=== PATIENT | female | born 1975 | race Caucasian/White ===

== ENCOUNTER 2019-10-22 13:45 | Outpatient (RCR) | payer OTHER, MEDICAID, SELFPAY ==
[2019-06-26 15:20] VITALS: BP 160/85
--- NOTE | 2019-06-26 18:43 | PT.OIE ---
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 (06/26/19) Other malaise (06/26/19) Past Medical History (Last Updated 05/30/19 @ 12:43 by Catalina Butler DO) Rheumatoid vasculitis with rheumatoid arthritis (Acute) Type 2 diabetes mellitus (Acute) Visit Care Team Role Provider Type Other Providers Specialty: Address: Phone: Fax: Email: Daisy Weinberg DO Attending Provider Non-Staff Specialty: Medical Address: [address] [place] [address], [id number] Email: Physical Therapy Initial Evaluation PT-OP-A Visit Information Start: 06/26/19 15:28 Freq: Status: Active Protocol: Document 06/26/19 15:20 HH (Rec: 06/26/19 16:48 HH [id number]) Out-Patient Physical Therapy Visit Information Visit Information Visit Type Initial Evaluation Visit Note IE led by TOMMY Rivas Visit Start Time 15:20 Visit Stop Time 16:00 Total Visit Minutes 40 Visit Number 1 Number of VISUAL [employer] .[employer] 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 Pt was diagnosed with RA and rheumatoid vasculitis in 1993 and notes that she believes this is when she started to become deconditioned. Pt's LBP and L LE radiculopathy which was worse with minimal exertion started approximately 3 years ago. She had a partial diskectomy f/b a full diskectomy approximately 1.5 year ago with minimal relief from surgeries. Pt reports the LBP and L LE pain was so severe she stayed in nursing homes multiple times and has walked with 4WW for last 3 years. Pt notes that approximately 1 year ago her LE pain was so intense she stopped walking. Pt moved in with sister in bottom floor of the house for more socal support. Approximately 6 months ago started using CBD oil with profound relief of sx , and pt has been able to stop taking gabapentin and reduce 4WW use to only in the mornings or with long distances. As pt's LBP has improved, she is interested in improving physical fitness and reports deconditioning and poor balance limits her the most. She also reports a 70 lb weight gain ~1 year ago d/t a course of high dose steroids, and has been able to lose about 35 lbs but still feels like her weight is limiting her mobility. Pt reports biggest limitations are with long distance walking or climbing more than one flight of stairs. Prior Treatments and Tests Partial f/b full diskectomy L5 -S1 in 2018. Had aquatic therapy in [place], [place] a few years ago which she felt was beneficial. Pt also currently receiving OMT for RA . Treatment Goals Patient/Caregiver Goals Lose weight, improve fitness, walk more, stop using 4WW Prior Functional Status Baseline Function- ADL's Independent Baseline Function- Mobility Independent Baseline Function- Gait Did not use AD prior to 3 years ago. Current Functional Impairments (Reported) Functional Limitations- ADL's Independent with ADLs. Functional Limitations- Mobility/Gait Independent, uses walker in mornings or for extended distances. Personal Factors Other Personal Factors That May Effect Pt is 290lbs (had 70 lb weight Therapy/Recovery gain 1 year ago and has lost about 35 lb since then). 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 PT-OP-C Subjective Start: 06/26/19 15:28 Freq: Status: Active Protocol: Document 06/26/19 15:20 (Rec: 06/26/19 16:48 [id number]) OP-PT Subjective Patient Comments Patient Comments I don't like that I get fatigued and out of breath so quickly. I want to lose weight and get moving more. I liked aquatic therapy in the past but am open to anything that can help. OP-PT Pain Assessment Location Neck Intensity 3 Scale Used Numeric (1 - 10) Description Aching,Chronic,Dull Frequency Constant Pain Aggravating Factors Activity,Exercise,Walking, Stair Climbing Pain Alleviating Factors Inactivity B hands Intensity 4 Scale Used Numeric (1 - 10) Description Aching,Tingling Frequency Frequent lumbar back pain Pain Location Details LBP and pelvic pain Intensity 4 Scale Used Numeric (1 - 10) Description Aching,Dull,With Movement Frequency Constant PT-OP-D Balance Start: 06/26/19 15:28 Freq: Status: Active Protocol: Document 06/26/19 15:20 HH (Rec: 06/26/19 16:48 [id number]) Balance Tests Single Limb Standing Single Limb- Right 3s Single Limb- Left 4s PT-OP-E Functional Tests Start: 06/26/19 15:28 Freq: Status: Active Protocol: Document 06/26/19 15:20 HH (Rec: 06/26/19 18:40 [id number]) Functional Tests 6 Minute Walk Test Distance 742 Device Used 4WW Comments Pt took 1 min break from 3-4th minute PT-OP-G Mobility & Gait Start: 06/26/19 15:28 Freq: Status: Active Protocol: Document 06/26/19 15:20 HH (Rec: 06/26/19 16:48 [id number]) OP Mobility Evaluation Transfers Sit to Stand I but slow speed and uses UE support for pushoff. Poor descent control with stand to sit. PT-OP-H Neuro Start: 06/26/19 15:28 Freq: Status: Active Protocol: Document 06/26/19 15:20 HH (Rec: 06/26/19 16:48 [id number]) Sensation Evaluation Location Details Right Lower Extremity Light Touch Impaired Left Lower Extremity Light Touch Impaired Upper Extremity Light Touch Intact/Normal Left Little Finger Light Touch Absent Comments Summary Comments UE sensation to light touch intact except L pinky, pt reports long-term hx of neuropathic damage. LE sensation L impaired L4-S1, R impaired L5. Deep Tendon Reflex & Clonus Assessment Deep Tendon Reflex Bilateral Achilles Deep Tendon Reflex 1+ Diminished Bilateral Patellar Deep Tendon Reflex 2+ Normal Bilateral Brachioradialis Deep Tendon Reflex 2+ Normal Bilateral Tricep Deep Tendon Reflex 2+ Normal Bilateral Bicep Deep Tendon Reflex 2+ Normal Ankle Clonus Bilateral Clonus Assessment Absent Vital Signs Blood Pressure Sitting Blood Pressure (90/60-120/80 mmHg) 160/85 H Blood Pressure Source Manual Cuff Comments Vital Signs Comments After 6MWT = 182/89 H Pt's baseline = 130s/80s PT-OP-J Posture/Palpation/Skin Start: 06/26/19 15:28 Freq: Status: Active Protocol: Document 06/26/19 15:20 HH (Rec: 06/26/19 16:48 [id number]) Posture Evaluation Position Standing Evaluation View Lateral Head/C-Spine Posture Forward Head T-Spine Posture Increased Kyphosis L-Spine Posture Increased Lordosis Shoulder Posture (L) Rounded,(R) Rounded Weight Distribution Weight Shifted Right Hip Posture (L) Externally Rotated,(R) Externally Rotated Knee Posture (L) Genu Valgus,(R) Genu Valgus,(L) Genu Recurvatum,(R) Genu Recurvatum Ankle/Foot Posture (L) Pronated,(R) Pronated PT-OP-K Range of Motion Start: 06/26/19 15:28 Freq: Status: Active Protocol: Document 06/26/19 15:20 HH (Rec: 06/26/19 16:48 [id number]) Cervical Spine Range of Motion Cervical Spine Active Testing Position Sitting Comments WNL Lumbar Spine Range of Motion Lumbar Spine Active Testing Position Standing Comments Flexion fingertips to midshin, extension full range but hinging L/S Hip Goniometric Range of Motion Hip ROM Limitations Comments Excess ER, IR limited. PT-OP-L Special Tests Start: 06/26/19 15:28 Freq: Status: Active Protocol: Document 06/26/19 15:20 HH (Rec: 06/26/19 16:48 [id number]) Special Tests Other Special Tests Special Tests Babinski -ve B 6 MWT: 742 ft, 1 break (1 min long), used 4WW PT-OP-M Strength Start: 06/26/19 15:28 Freq: Status: Active Protocol: Document 06/26/19 15:20 HH (Rec: 06/26/19 16:48 [id number]) Shoulder Strength Shoulder Manual Muscle Testing bilateral Abduction (C5) 4 Good Elbow/Forearm Strength Elbow and Forearm Manual Muscle Testing bilateral Flexion (C6) 4+ Good+ Extension (C7) 4+ Good+ Wrist Strength Wrist Manual Muscle Testing bilateral Flexion (C7) 4+ Good+ Extension (C6) 4+ Good+ Hip Strength Hip Manual Muscle Testing bilateral Flexion (L2) 4- Good- Knee Strength Knee Manual Muscle Testing bilateral Flexion (S2) 4 Good Extension (L3) 4 Good Ankle/Foot Strength Ankle and Foot Manual Muscle Testing bilateral Dorsiflexion (L4) 4 Good Plantarflexion (S1) 4 Good PT-OP-T Assessment and Plan Start: 06/26/19 15:28 Freq: Status: Active Protocol: Document 06/26/19 15:20 HH (Rec: 06/26/19 16:48 [id number]) Physical Therapy Assessment Rehab Potential Rehabilitation Potential Good Evaluation Complexity Number of Personal Factors/Comorbidities 3 or More Number of Body Systems Impaired 4 or More Clinical Presentation at Evaluation Stable Impairments Impairments Activity Tolerance,Balance, Functional Activities, Functional Mobility,Gait,Pain, Posture,ROM,Sensation,Strength Other Impairments Gross mobility deficits and deconditioning Goals Balance Impairment Pt unable to balance single leg >5 sec Short Term Goal (STG) Pt will single leg stand >10 sec B to improve safety with activity STG Duration 6 weeks Popped Corn Oven Attendant Goal (LTG) Pt will single leg stand >20 sec B to improve safety with activity LTG Duration 12 weeks Activity level Impairment Pt does not participate in regular physical activity Short Term Goal (STG) Pt will complete 20 min of physical activity daily to improve physical fitness STG Duration 6 weeks Usp Goal (LTG) Pt will complete 30 min of physical activity dailty to improve physical fitness LTG Duration 12 weeks 6MWT Impairment Pt ambulated 742 ft with 1 min rest break Short Term Goal (STG) Pt will ambulate >1000 ft with <30 sec rest break during 6MWT to improve activity tolerance STG Duration 6 weeks Usp Goal (LTG) Pt will ambulate >1500 ft with <30 sec rest break during 6MWT to improve activity tolerance or 1000 ft without AD LTG Duration 12 weeks HEP Impairment Pt does not have HEP Popped Corn Oven Attendant Goal (LTG) Pt will demonstrate independence and safety with HEP to improve and maintain balance and physical fitness LTG Duration 12 weeks Assessment Summary Assessment Pt is 43 yo female presenting to clinic with chronic LBP and general deconditioning. Pt reports multiple medical conditions like RA and type II DM in addition to a 3 years hx of LBP with radiculopathy limiting her mobility, which has led to her low activity tolerance. She has decreased sensation in her L pinky finger and lateral calf as well as B feet d/t peripheral neuropathy. Pt has excessive hip ER and demonstrates WBOS with ER and short step length with gait. She also has poor balance and can only stand on single leg for <5 sec. Pt had poor activity tolerance during the 6MWT and required a 1 min break d/t fatigue and LBP. Pt will benefit from aquatic and land based skilled therapy to increase physical fitness, promote weight loss, and improve balance and safety with activity. Physical Therapy Plan Frequency and Duration Frequency of Treatment 2x/Week Duration of Treatment 12 weeks Plan of Care Start Date 06/26/19 Plan of Care End Date 09/18/19 Therapeutic Interventions Therapeutic Interventions Aquatic Therapy,Balance Training,Gait Training,Home Exercise Program,Manual Therapy,Neuromuscular Re- education,Patient/Caregiver Education,Self-Care/Home Management,Soft Tissue Mobilization,Therapeutic Activities,Therapeutic Exercises Modalities Cold Pack/Ice Massage,Electric Stimulation,Hot Packs, Ultrasound Next Visit Focus/Plan Next Note Type Treatment Note Next Visit Plan Aquatic therapy Next land based: check tolerance for aquatic therapy Cardiovascular fitness SLS/balance training, gait training, LE strengthening, flexion based exercises, segmental movement
--- NOTE | 2019-06-30 16:21 | PT.OTN ---
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 (06/30/19) Other malaise (06/30/19) Physical Therapy Treatment Note PT-OP-A Visit Information Start: 06/26/19 15:28 Freq: Status: Active Protocol: Document 06/30/19 12:30 LJ (Rec: 06/30/19 16:20 LJ [id number]) Out-Patient Physical Therapy Visit Information Visit Information Visit Type Aquatic Treatment Note Visit Start Time 12:30 Visit Stop Time 13:20 Total Visit Minutes 50 Visit Number 2 Number of CORE WORKER Visits 1 PT-OP-B Current Condition Start: 06/26/19 15:28 Freq: Status: Active Protocol: Document 06/26/19 15:20 HH (Rec: 06/26/19 16:48 HH [id number]) Current Condition History of Current Condition Onset Date Deconditioning 20 yrs, LBP/ radiculopathy 3 years Current Complaints Deconditioning, LBP, occasional L LE radiculopathy History of Current Condition Pt is 43 yo female presenting to clinic with complaints of deconditioning and hx of LBP with radiculopathy. 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 Pt was diagnosed with RA and rheumatoid vasculitis in 1993 and notes that she believes this is when she started to become deconditioned. Pt's LBP and L LE radiculopathy which was worse with minimal exertion started approximately 3 years ago. She had a partial diskectomy f/b a full diskectomy approximately 1.5 year ago with minimal relief from surgeries. Pt reports the LBP and L LE pain was so severe she stayed in nursing homes multiple times and has walked with 4WW for last 3 years. Pt notes that approximately 1 year ago her LE pain was so intense she stopped walking. Pt moved in with sister in bottom floor of the house for more socal support. Approximately 6 months ago started using CBD oil with profound relief of sx , and pt has been able to stop taking gabapentin and reduce 4WW use to only in the mornings or with long distances. As pt's LBP has improved, she is interested in improving physical fitness and reports deconditioning and poor balance limits her the most. She also reports a 70 lb weight gain ~1 year ago d/t a course of high dose steroids, and has been able to lose about 35 lbs but still feels like her weight is limiting her mobility. Pt reports biggest limitations are with long distance walking or climbing more than one flight of stairs. Prior Treatments and Tests Partial f/b full diskectomy L5 -S1 in 2018. Had aquatic therapy in [place], [place] a few years ago which she felt was beneficial. Pt also currently receiving OMT for RA . Treatment Goals Patient/Caregiver Goals Lose weight, improve fitness, walk more, stop using 4WW Prior Functional Status Baseline Function- ADL's Independent Baseline Function- Mobility Independent Baseline Function- Gait Did not use AD prior to 3 years ago. Current Functional Impairments (Reported) Functional Limitations- ADL's Independent with ADLs. Functional Limitations- Mobility/Gait Independent, uses walker in mornings or for extended distances. Personal Factors Other Personal Factors That May Effect Pt is 290lbs (had 70 lb weight Therapy/Recovery gain 1 year ago and has lost about 35 lb since then). 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 PT-OP-C Subjective Start: 06/26/19 15:28 Freq: Status: Active Protocol: Document 06/30/19 12:30 LJ (Rec: 06/30/19 16:20 LJ [id number]) OP-PT Subjective Patient Comments Patient Comments Pt states she is comfortable in the water and has had good experience in the past with aquatic therapy. States she is doing pretty good lately. She has purchased a pool pass and is interested in coming in on her own with a HEP to workout between therapy sessions. OP-PT Pain Assessment Location Neck Intensity 3 Scale Used Numeric (1 - 10) Description Aching,Chronic,Dull Frequency Constant Pain Aggravating Factors Activity,Exercise,Walking, Stair Climbing Pain Alleviating Factors Inactivity B hands Intensity 4 Scale Used Numeric (1 - 10) Description Aching,Tingling Frequency Frequent lumbar back pain Pain Location Details LBP and pelvic pain Intensity 4 Scale Used Numeric (1 - 10) Description Aching,Dull,With Movement Frequency Constant PT-OP-D Balance Start: 06/26/19 15:28 Freq: Status: Active Protocol: Document 06/26/19 15:20 HH (Rec: 06/26/19 16:48 HH [id number]) Balance Tests Single Limb Standing Single Limb- Right 3s Single Limb- Left 4s PT-OP-E Functional Tests Start: 06/26/19 15:28 Freq: Status: Active Protocol: Document 06/26/19 15:20 HH (Rec: 06/26/19 18:40 [id number]) Functional Tests 6 Minute Walk Test Distance 742 Device Used 4WW Comments Pt took 1 min break from 3-4th minute PT-OP-G Mobility & Gait Start: 06/26/19 15:28 Freq: Status: Active Protocol: Document 06/26/19 15:20 HH (Rec: 06/26/19 16:48 [id number]) OP Mobility Evaluation Transfers Sit to Stand I but slow speed and uses UE support for pushoff. Poor descent control with stand to sit. PT-OP-H Neuro Start: 06/26/19 15:28 Freq: Status: Active Protocol: Document 06/26/19 15:20 HH (Rec: 06/26/19 16:48 [id number]) Sensation Evaluation Location Details Right Lower Extremity Light Touch Impaired Left Lower Extremity Light Touch Impaired Upper Extremity Light Touch Intact/Normal Left Little Finger Light Touch Absent Comments Summary Comments UE sensation to light touch intact except L pinky, pt reports long-term hx of neuropathic damage. LE sensation L impaired L4-S1, R impaired L5. Deep Tendon Reflex & Clonus Assessment Deep Tendon Reflex Bilateral Achilles Deep Tendon Reflex 1+ Diminished Bilateral Patellar Deep Tendon Reflex 2+ Normal Bilateral Brachioradialis Deep Tendon Reflex 2+ Normal Bilateral Tricep Deep Tendon Reflex 2+ Normal Bilateral Bicep Deep Tendon Reflex 2+ Normal Ankle Clonus Bilateral Clonus Assessment Absent Vital Signs Blood Pressure Sitting Blood Pressure (90/60-120/80 mmHg) 160/85 H Blood Pressure Source Manual Cuff Comments Vital Signs Comments After 6MWT = 182/89 H Pt's baseline = 130s/80s PT-OP-J Posture/Palpation/Skin Start: 06/26/19 15:28 Freq: Status: Active Protocol: Document 06/26/19 15:20 HH (Rec: 06/26/19 16:48 [id number]) Posture Evaluation Position Standing Evaluation View Lateral Head/C-Spine Posture Forward Head T-Spine Posture Increased Kyphosis L-Spine Posture Increased Lordosis Shoulder Posture (L) Rounded,(R) Rounded Weight Distribution Weight Shifted Right Hip Posture (L) Externally Rotated,(R) Externally Rotated Knee Posture (L) Genu Valgus,(R) Genu Valgus,(L) Genu Recurvatum,(R) Genu Recurvatum Ankle/Foot Posture (L) Pronated,(R) Pronated PT-OP-K Range of Motion Start: 06/26/19 15:28 Freq: Status: Active Protocol: Document 06/26/19 15:20 HH (Rec: 06/26/19 16:48 [id number]) Cervical Spine Range of Motion Cervical Spine Active Testing Position Sitting Comments WNL Lumbar Spine Range of Motion Lumbar Spine Active Testing Position Standing Comments Flexion fingertips to midshin, extension full range but hinging L/S Hip Goniometric Range of Motion Hip ROM Limitations Comments Excess ER, IR limited. PT-OP-L Special Tests Start: 06/26/19 15:28 Freq: Status: Active Protocol: Document 06/26/19 15:20 HH (Rec: 06/26/19 16:48 [id number]) Special Tests Other Special Tests Special Tests Babinski -ve B 6 MWT: 742 ft, 1 break (1 min long), used 4WW PT-OP-M Strength Start: 06/26/19 15:28 Freq: Status: Active Protocol: Document 06/26/19 15:20 HH (Rec: 06/26/19 16:48 [id number]) Shoulder Strength Shoulder Manual Muscle Testing bilateral Abduction (C5) 4 Good Elbow/Forearm Strength Elbow and Forearm Manual Muscle Testing bilateral Flexion (C6) 4+ Good+ Extension (C7) 4+ Good+ Wrist Strength Wrist Manual Muscle Testing bilateral Flexion (C7) 4+ Good+ Extension (C6) 4+ Good+ Hip Strength Hip Manual Muscle Testing bilateral Flexion (L2) 4- Good- Knee Strength Knee Manual Muscle Testing bilateral Flexion (S2) 4 Good Extension (L3) 4 Good Ankle/Foot Strength Ankle and Foot Manual Muscle Testing bilateral Dorsiflexion (L4) 4 Good Plantarflexion (S1) 4 Good PT-OP-S Aquatic Treatment Start: 06/26/19 15:28 Freq: Status: Active Protocol: Document 06/30/19 12:30 LJ (Rec: 06/30/19 16:20 LJ [id number]) Aquatics Treatment Pool Entry/Exit Pool Entry/Exit Method Stairs Assistance Standby Assistance Water Walking [place] March Water Level Waist Level Level of Assistance Standby Assistance,Verbal Cues Comments difficult with balance Marching Water Level Waist Level Level of Assistance Standby Assistance,Verbal Cues Sideways Water Level Chest Level Level of Assistance Standby Assistance,Verbal Cues Forwards Water Level Waist Level Level of Assistance Standby Assistance,Verbal Cues Lower Extremity Stretches body swing Comments on wall gastroc, soleus Body Position Standing Reps/Duration 2x45 Comments standing at wall hip-spiderman Reps/Duration 2x45 SKTC, piriformis Body Position Standing Reps/Duration 2x45 Comments at wall HS, Quads, Body Position Standing Water Level Chest Level Equipment Large Noodle Reps/Duration 2x30 Comments hh at wall Upper Extremity Exercises flex/ exst; ab/ad Body Position Standing Reps/Duration 2x12 Balance DLS-weight shifting forward to backward, side to side Body Position Standing Water Level Chest Level Reps/Duration 3 min [place] Activities [place] Activities Bicycle,Cross Country,Hip Abduction/Adduction Equipment white noodle Comments added #4 ankle floats Manual Techniques Aquatic Manual Traction 10 min #4 ankle wts lg blue float PT-OP-T Assessment and Plan Start: 06/26/19 15:28 Freq: Status: Active Protocol: Document 06/30/19 12:30 EDE (Rec: 06/30/19 16:20 EDE [id number]) Physical Therapy Assessment Rehab Potential Rehabilitation Potential Good Evaluation Complexity Number of Personal Factors/Comorbidities 3 or More Number of Body Systems Impaired 4 or More Clinical Presentation at Evaluation Stable Impairments Impairments Activity Tolerance,Balance, Functional Activities, Functional Mobility,Gait,Pain, Posture,ROM,Sensation,Strength Other Impairments Gross mobility deficits and deconditioning Goals Balance Impairment Pt unable to balance single leg >5 sec Short Term Goal (STG) Pt will single leg stand >10 sec B to improve safety with activity STG Duration 6 weeks Alf Goal (LTG) Pt will single leg stand >20 sec B to improve safety with activity LTG Duration 12 weeks Activity level Impairment Pt does not participate in regular physical activity Short Term Goal (STG) Pt will complete 20 min of physical activity daily to improve physical fitness STG Duration 6 weeks Alf Goal (LTG) Pt will complete 30 min of physical activity dailty to improve physical fitness LTG Duration 12 weeks 6MWT Impairment Pt ambulated 742 ft with 1 min rest break Short Term Goal (STG) Pt will ambulate >1000 ft with <30 sec rest break during 6MWT to improve activity tolerance STG Duration 6 weeks Coating Machine Feeder Goal (LTG) Pt will ambulate >1500 ft with <30 sec rest break during 6MWT to improve activity tolerance or 1000 ft without AD LTG Duration 12 weeks HEP Impairment Pt does not have HEP Coating Machine Feeder Goal (LTG) Pt will demonstrate independence and safety with HEP to improve and maintain balance and physical fitness LTG Duration 12 weeks Assessment Summary Assessment Pt had difficulty with walking activities in waist deep water so was moved to chest deep water. Tolerated deep water activities well after adding wts to ankles. No complaints of increased pain but she reported feeling it working muscles that aren't used to moving. Pt has good coordination with recrip gait pattern but had difficulty with balance while performing soldier walking. No c/o pain with stretching exercises. Physical Therapy Plan Frequency and Duration Frequency of Treatment 2x/Week Duration of Treatment 12 weeks Plan of Care Start Date 06/26/19 Plan of Care End Date 09/18/19 Therapeutic Interventions Therapeutic Interventions Aquatic Therapy,Balance Training,Gait Training,Home Exercise Program,Manual Therapy,Neuromuscular Re- education,Patient/Caregiver Education,Self-Care/Home Management,Soft Tissue Mobilization,Therapeutic Activities,Therapeutic Exercises Modalities Cold Pack/Ice Massage,Electric Stimulation,Hot Packs, Ultrasound Next Visit Focus/Plan Next Note Type Treatment Note Next Visit Plan Gradually increase intensity of exercises incorporating standing LE protocal including hip flex/ext; ab/ad; CCW/CW; HS curls, stretch cord spinal stabilization exercises. SLS/ balance training, gait training, LE strengthening, flexion based exercises, segmental movement
--- NOTE | 2019-07-02 11:00 | PT.OTN ---
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 I forget how long it takes to get here. Visit Start Time 09:51 Visit Stop Time 10:33 Total Visit Minutes 42 Visit Number 3 Number of [employer] INS[employer]OR Visits 0 Evaluation Information Evaluation Date 06/26/19 PT-OP-B Current Condition Start: 06/26/19 15:28 Freq: Status: Active Protocol: Document 06/26/19 15:20 HH (Rec: 06/26/19 16:48 HH [id number]) Current Condition History of Current Condition Onset Date Deconditioning 20 yrs, LBP/ radiculopathy 3 years Current Complaints Deconditioning, LBP, occasional L LE radiculopathy History of Current Condition Pt is 43 yo female presenting to clinic with complaints of deconditioning and hx of LBP with radiculopathy. 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 Pt was diagnosed with RA and rheumatoid vasculitis in 1993 and notes that she believes this is when she started to become deconditioned. Pt's LBP and L LE radiculopathy which was worse with minimal exertion started approximately 3 years ago. She had a partial diskectomy f/b a full diskectomy approximately 1.5 year ago with minimal relief from surgeries. Pt reports the LBP and L LE pain was so severe she stayed in nursing homes multiple times and has walked with 4WW for last 3 years. Pt notes that approximately 1 year ago her LE pain was so intense she stopped walking. Pt moved in with sister in bottom floor of the house for more socal support. Approximately 6 months ago started using CBD oil with profound relief of sx , and pt has been able to stop taking gabapentin and reduce 4WW use to only in the mornings or with long distances. As pt's LBP has improved, she is interested in improving physical fitness and reports deconditioning and poor balance limits her the most. She also reports a 70 lb weight gain ~1 year ago d/t a course of high dose steroids, and has been able to lose about 35 lbs but still feels like her weight is limiting her mobility. Pt reports biggest limitations are with long distance walking or climbing more than one flight of stairs. Prior Treatments and Tests Partial f/b full diskectomy L5 -S1 in 2018. Had aquatic therapy in [place], [place] a few years ago which she felt was beneficial. Pt also currently receiving OMT for RA . Treatment Goals Patient/Caregiver Goals Lose weight, improve fitness, walk more, stop using 4WW Prior Functional Status Baseline Function- ADL's Independent Baseline Function- Mobility Independent Baseline Function- Gait Did not use AD prior to 3 years ago. Current Functional Impairments (Reported) Functional Limitations- ADL's Independent with ADLs. Functional Limitations- Mobility/Gait Independent, uses walker in mornings or for extended distances. Personal Factors Other Personal Factors That May Effect Pt is 290lbs (had 70 lb weight Therapy/Recovery gain 1 year ago and has lost about 35 lb since then). 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 PT-OP-C Subjective Start: 06/26/19 15:28 Freq: Status: Active Protocol: Document 07/02/19 10:36 AW (Rec: 07/02/19 11:00 AW [email or web address]) OP-PT Subjective Patient Comments Patient Comments Priya felt pleasantly achy after Sunday's aquatic therapy , but her left leg radiculopathy was worse after treatment. PT-OP-D Balance Start: 06/26/19 15:28 Freq: Status: Active Protocol: Document 06/26/19 15:20 HH (Rec: 06/26/19 16:48 HH [id number]) Balance Tests Single Limb Standing Single Limb- Right 3s Single Limb- Left 4s PT-OP-E Functional Tests Start: 06/26/19 15:28 Freq: Status: Active Protocol: Document 06/26/19 15:20 HH (Rec: 06/26/19 18:40 HH [id number]) Functional Tests 6 Minute Walk Test Distance 742 Device Used 4WW Comments Pt took 1 min break from 3-4th minute PT-OP-G Mobility & Gait Start: 06/26/19 15:28 Freq: Status: Active Protocol: Document 06/26/19 15:20 HH (Rec: 06/26/19 16:48 [id number]) OP Mobility Evaluation Transfers Sit to Stand I but slow speed and uses UE support for pushoff. Poor descent control with stand to sit. PT-OP-H Neuro Start: 06/26/19 15:28 Freq: Status: Active Protocol: Document 06/26/19 15:20 HH (Rec: 06/26/19 16:48 [id number]) Sensation Evaluation Location Details Right Lower Extremity Light Touch Impaired Left Lower Extremity Light Touch Impaired Upper Extremity Light Touch Intact/Normal Left Little Finger Light Touch Absent Comments Summary Comments UE sensation to light touch intact except L pinky, pt reports long-term hx of neuropathic damage. LE sensation L impaired L4-S1, R impaired L5. Deep Tendon Reflex & Clonus Assessment Deep Tendon Reflex Bilateral Achilles Deep Tendon Reflex 1+ Diminished Bilateral Patellar Deep Tendon Reflex 2+ Normal Bilateral Brachioradialis Deep Tendon Reflex 2+ Normal Bilateral Tricep Deep Tendon Reflex 2+ Normal Bilateral Bicep Deep Tendon Reflex 2+ Normal Ankle Clonus Bilateral Clonus Assessment Absent Vital Signs Blood Pressure Sitting Blood Pressure (90/60-120/80 mmHg) 160/85 H Blood Pressure Source Manual Cuff Comments Vital Signs Comments After 6MWT = 182/89 H Pt's baseline = 130s/80s PT-OP-J Posture/Palpation/Skin Start: 06/26/19 15:28 Freq: Status: Active Protocol: Document 06/26/19 15:20 HH (Rec: 06/26/19 16:48 [id number]) Posture Evaluation Position Standing Evaluation View Lateral Head/C-Spine Posture Forward Head T-Spine Posture Increased Kyphosis L-Spine Posture Increased Lordosis Shoulder Posture (L) Rounded,(R) Rounded Weight Distribution Weight Shifted Right Hip Posture (L) Externally Rotated,(R) Externally Rotated Knee Posture (L) Genu Valgus,(R) Genu Valgus,(L) Genu Recurvatum,(R) Genu Recurvatum Ankle/Foot Posture (L) Pronated,(R) Pronated PT-OP-K Range of Motion Start: 06/26/19 15:28 Freq: Status: Active Protocol: Document 06/26/19 15:20 HH (Rec: 06/26/19 16:48 [id number]) Cervical Spine Range of Motion Cervical Spine Active Testing Position Sitting Comments WNL Lumbar Spine Range of Motion Lumbar Spine Active Testing Position Standing Comments Flexion fingertips to midshin, extension full range but hinging L/S Hip Goniometric Range of Motion Hip ROM Limitations Comments Excess ER, IR limited. PT-OP-L Special Tests Start: 06/26/19 15:28 Freq: Status: Active Protocol: Document 06/26/19 15:20 HH (Rec: 06/26/19 16:48 [email or web address]) Special Tests Other Special Tests Special Tests Babinski -ve B 6 MWT: 742 ft, 1 break (1 min long), used 4WW PT-OP-M Strength Start: 06/26/19 15:28 Freq: Status: Active Protocol: Document 06/26/19 15:20 HH (Rec: 06/26/19 16:48 [id number]) Shoulder Strength Shoulder Manual Muscle Testing bilateral Abduction (C5) 4 Good Elbow/Forearm Strength Elbow and Forearm Manual Muscle Testing bilateral Flexion (C6) 4+ Good+ Extension (C7) 4+ Good+ Wrist Strength Wrist Manual Muscle Testing bilateral Flexion (C7) 4+ Good+ Extension (C6) 4+ Good+ Hip Strength Hip Manual Muscle Testing bilateral Flexion (L2) 4- Good- Knee Strength Knee Manual Muscle Testing bilateral Flexion (S2) 4 Good Extension (L3) 4 Good Ankle/Foot Strength Ankle and Foot Manual Muscle Testing bilateral Dorsiflexion (L4) 4 Good Plantarflexion (S1) 4 Good PT-OP-Q Treatments Start: 06/26/19 15:28 Freq: Status: Active Protocol: Document 07/02/19 10:36 AW (Rec: 07/02/19 11:00 AW [email or web address]) Cardio Equipment Recumbent Bicycle Duration (Minutes) 5 Resistance 2 Seat Position 10 Therapeutic Exercises Supine Exercises lower trunk rotation Supine Exercise Name lower trunk rotation Side bilateral Reps/Minutes 3 minutes Comments cues to rotate within pain free range straight leg raise Supine Exercise Name straight leg raise Side bilateral Reps/Minutes 2x10 reps bilat Comments cues for slow controlled movement TrA activation Supine Exercise Name TrA activation Reps/Minutes 10 sec hold x 10 Comments added marching last two reps Sitting Exercises seated flexion stretch Sitting Exercise Name seated flexion stretch Reps/Minutes 1x5 reps Comments cues for segmental flexion Standing Exercises hip extension/kick back Standing Exercise Name hip extension/kick back Side bilateral Equipment Used rail for support Reps/Minutes 2x10 reps Comments cued for upright posture Manual Therapy Treatment Joint Mobilizations lumbar facet gapping Joint lumbar facet gapping Grade II Body Position Sidelying Reps/Duration 8 minutes Comments Pt reports relief of radicular symptoms. Taught pt positioning to perform on flat surface at home. Neuro Re-Education Treatment Balance Activities single leg stance Details single leg stance Surface firm Equipment rail for UE support Reps/Duration 6 min Comments Pt able to fade UE support to fingertips for standing ~15 sec each LE. She required 2 seated rest breaks during this activity. narrow stance Details narrow stance - EO/EC Surface firm Equipment rail for support Reps/Duration 6 min Comments Pt required seated rest break after every 2 minutes standing balance activity PT-OP-S Aquatic Treatment Start: 06/26/19 15:28 Freq: Status: Active Protocol: Document 06/30/19 12:30 EDE (Rec: 06/30/19 16:20 [id number]) Aquatics Treatment Pool Entry/Exit Pool Entry/Exit Method Stairs Assistance Standby Assistance Water Walking [place] Water Level Waist Level Level of Assistance Standby Assistance,Verbal Cues Comments difficult with balance Marching Water Level Waist Level Level of Assistance Standby Assistance,Verbal Cues Sideways Water Level Chest Level Level of Assistance Standby Assistance,Verbal Cues Forwards Water Level Waist Level Level of Assistance Standby Assistance,Verbal Cues Lower Extremity Stretches body swing Comments on wall gastroc, soleus Body Position Standing Reps/Duration 2x45 Comments standing at wall hip-spiderman Reps/Duration 2x45 SKTC, piriformis Body Position Standing Reps/Duration 2x45 Comments at wall HS, Quads, Body Position Standing Water Level Chest Level Equipment Large Noodle Reps/Duration 2x30 Comments hh at wall Upper Extremity Exercises flex/ exst; ab/ad Body Position Standing Reps/Duration 2x12 Balance DLS-weight shifting forward to backward, side to side Body Position Standing Water Level Chest Level Reps/Duration 3 min Mission Activities Mission Activities Bicycle,Cross Country,Hip Abduction/Adduction Equipment white noodle Comments added #4 ankle floats Manual Techniques Aquatic Manual Traction 10 min #4 ankle wts lg blue float PT-OP-T Assessment and Plan Start: 06/26/19 15:28 Freq: Status: Active Protocol: Document 07/02/19 10:36 AW (Rec: 07/02/19 11:00 AW [email or web address]) Physical Therapy Assessment Impairments Impairments Activity Tolerance,Balance, Functional Activities, Functional Mobility,Gait,Pain, Posture,ROM,Sensation,Strength Other Impairments Gross mobility deficits and deconditioning Goals Balance Impairment Pt unable to balance single leg >5 sec Short Term Goal (STG) Pt will single leg stand >10 sec B to improve safety with activity STG Duration 6 weeks [facility] Goal (LTG) Pt will single leg stand >20 sec B to improve safety with activity LTG Duration 12 weeks Activity level Impairment Pt does not participate in regular physical activity Short Term Goal (STG) Pt will complete 20 min of physical activity daily to improve physical fitness STG Duration 6 weeks [employer]ware [employer] Goal (LTG) Pt will complete 30 min of physical activity dailty to improve physical fitness LTG Duration 12 weeks 6MWT Impairment Pt ambulated 742 ft with 1 min rest break Short Term Goal (STG) Pt will ambulate >1000 ft with <30 sec rest break during 6MWT to improve activity tolerance STG Duration 6 weeks [employer] Goal (LTG) Pt will ambulate >1500 ft with <30 sec rest break during 6MWT to improve activity tolerance or 1000 ft without AD LTG Duration 12 weeks HEP Impairment Pt does not have HEP Glassware Maker Goal (LTG) Pt will demonstrate independence and safety with HEP to improve and maintain balance and physical fitness LTG Duration 12 weeks Assessment Summary Assessment Pt tolerated gentle ther ex and balance activities well. She is engaged and excited to make progress. Standing tolerance is limited. Physical Therapy Plan Next Visit Focus/Plan Next Note Type Treatment Note Next Visit Plan Progress cardiovascular exercise, balance activities, LE strengthening
--- NOTE | 2019-07-14 16:38 | PT.OTN ---
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 (07/14/19) Other malaise (07/14/19) Physical Therapy Treatment Note PT-OP-A Visit Information Start: 06/26/19 15:28 Freq: Status: Active Protocol: Document 07/14/19 16:28 SAK (Rec: 07/14/19 16:38 SAK [id number]) Out-Patient Physical Therapy Visit Information Visit Information Visit Type Aquatic Treatment Note Visit Start Time 11:00 Visit Stop Time 11:45 Total Visit Minutes 45 Visit Number 4 Number of ENDOSCOPY SUPPORT SPECIALIST Visits 0 Evaluation Information Evaluation Date 06/26/19 PT-OP-B Current Condition Start: 06/26/19 15:28 Freq: Status: Active Protocol: Document 06/26/19 15:20 HH (Rec: 06/26/19 16:48 HH [id number]) Current Condition History of Current Condition Onset Date Deconditioning 20 yrs, LBP/ radiculopathy 3 years Current Complaints Deconditioning, LBP, occasional L LE radiculopathy History of Current Condition Pt is 43 yo female presenting to clinic with complaints of deconditioning and hx of LBP with radiculopathy. 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 Pt was diagnosed with RA and rheumatoid vasculitis in 1993 and notes that she believes this is when she started to become deconditioned. Pt's LBP and L LE radiculopathy which was worse with minimal exertion started approximately 3 years ago. She had a partial diskectomy f/b a full diskectomy approximately 1.5 year ago with minimal relief from surgeries. Pt reports the LBP and L LE pain was so severe she stayed in nursing homes multiple times and has walked with 4WW for last 3 years. Pt notes that approximately 1 year ago her LE pain was so intense she stopped walking. Pt moved in with sister in bottom floor of the house for more socal support. Approximately 6 months ago started using CBD oil with profound relief of sx , and pt has been able to stop taking gabapentin and reduce 4WW use to only in the mornings or with long distances. As pt's LBP has improved, she is interested in improving physical fitness and reports deconditioning and poor balance limits her the most. She also reports a 70 lb weight gain ~1 year ago d/t a course of high dose steroids, and has been able to lose about 35 lbs but still feels like her weight is limiting her mobility. Pt reports biggest limitations are with long distance walking or climbing more than one flight of stairs. Prior Treatments and Tests Partial f/b full diskectomy L5 -S1 in 2018. Had aquatic therapy in [place], [place] a few years ago which she felt was beneficial. Pt also currently receiving OMT for RA . Treatment Goals Patient/Caregiver Goals Lose weight, improve fitness, walk more, stop using 4WW Prior Functional Status Baseline Function- ADL's Independent Baseline Function- Mobility Independent Baseline Function- Gait Did not use AD prior to 3 years ago. Current Functional Impairments (Reported) Functional Limitations- ADL's Independent with ADLs. Functional Limitations- Mobility/Gait Independent, uses walker in mornings or for extended distances. Personal Factors Other Personal Factors That May Effect Pt is 290lbs (had 70 lb weight Therapy/Recovery gain 1 year ago and has lost about 35 lb since then). 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 PT-OP-C Subjective Start: 06/26/19 15:28 Freq: Status: Active Protocol: Document 07/14/19 16:28 SAK (Rec: 07/14/19 16:38 SAK [id number]) OP-PT Subjective Patient Comments Patient Comments States she is feeling very tired today and didn't do much exercise the last few days due to having a cold. PT-OP-D Balance Start: 06/26/19 15:28 Freq: Status: Active Protocol: Document 06/26/19 15:20 (Rec: 06/26/19 16:48 [id number]) Balance Tests Single Limb Standing Single Limb- Right 3s Single Limb- Left 4s PT-OP-E Functional Tests Start: 06/26/19 15:28 Freq: Status: Active Protocol: Document 06/26/19 15:20 (Rec: 06/26/19 18:40 HH [id number]) Functional Tests 6 Minute Walk Test Distance 742 Device Used 4WW Comments Pt took 1 min break from 3-4th minute PT-OP-G Mobility & Gait Start: 06/26/19 15:28 Freq: Status: Active Protocol: Document 06/26/19 15:20 HH (Rec: 06/26/19 16:48 [id number]) OP Mobility Evaluation Transfers Sit to Stand I but slow speed and uses UE support for pushoff. Poor descent control with stand to sit. PT-OP-H Neuro Start: 06/26/19 15:28 Freq: Status: Active Protocol: Document 06/26/19 15:20 HH (Rec: 06/26/19 16:48 [id number]) Sensation Evaluation Location Details Right Lower Extremity Light Touch Impaired Left Lower Extremity Light Touch Impaired Upper Extremity Light Touch Intact/Normal Left Little Finger Light Touch Absent Comments Summary Comments UE sensation to light touch intact except L pinky, pt reports long-term hx of neuropathic damage. LE sensation L impaired L4-S1, R impaired L5. Deep Tendon Reflex & Clonus Assessment Deep Tendon Reflex Bilateral Achilles Deep Tendon Reflex 1+ Diminished Bilateral Patellar Deep Tendon Reflex 2+ Normal Bilateral Brachioradialis Deep Tendon Reflex 2+ Normal Bilateral Tricep Deep Tendon Reflex 2+ Normal Bilateral Bicep Deep Tendon Reflex 2+ Normal Ankle Clonus Bilateral Clonus Assessment Absent Vital Signs Blood Pressure Sitting Blood Pressure (90/60-120/80 mmHg) 160/85 H Blood Pressure Source Manual Cuff Comments Vital Signs Comments After 6MWT = 182/89 H Pt's baseline = 130s/80s PT-OP-J Posture/Palpation/Skin Start: 06/26/19 15:28 Freq: Status: Active Protocol: Document 06/26/19 15:20 HH (Rec: 06/26/19 16:48 [id number]) Posture Evaluation Position Standing Evaluation View Lateral Head/C-Spine Posture Forward Head T-Spine Posture Increased Kyphosis L-Spine Posture Increased Lordosis Shoulder Posture (L) Rounded,(R) Rounded Weight Distribution Weight Shifted Right Hip Posture (L) Externally Rotated,(R) Externally Rotated Knee Posture (L) Genu Valgus,(R) Genu Valgus,(L) Genu Recurvatum,(R) Genu Recurvatum Ankle/Foot Posture (L) Pronated,(R) Pronated PT-OP-K Range of Motion Start: 06/26/19 15:28 Freq: Status: Active Protocol: Document 06/26/19 15:20 HH (Rec: 06/26/19 16:48 [id number]) Cervical Spine Range of Motion Cervical Spine Active Testing Position Sitting Comments WNL Lumbar Spine Range of Motion Lumbar Spine Active Testing Position Standing Comments Flexion fingertips to midshin, extension full range but hinging L/S Hip Goniometric Range of Motion Hip ROM Limitations Comments Excess ER, IR limited. PT-OP-L Special Tests Start: 06/26/19 15:28 Freq: Status: Active Protocol: Document 06/26/19 15:20 HH (Rec: 06/26/19 16:48 [id number]) Special Tests Other Special Tests Special Tests Babinski -ve B 6 MWT: 742 ft, 1 break (1 min long), used 4WW PT-OP-M Strength Start: 06/26/19 15:28 Freq: Status: Active Protocol: Document 06/26/19 15:20 HH (Rec: 06/26/19 16:48 [id number]) Shoulder Strength Shoulder Manual Muscle Testing bilateral Abduction (C5) 4 Good Elbow/Forearm Strength Elbow and Forearm Manual Muscle Testing bilateral Flexion (C6) 4+ Good+ Extension (C7) 4+ Good+ Wrist Strength Wrist Manual Muscle Testing bilateral Flexion (C7) 4+ Good+ Extension (C6) 4+ Good+ Hip Strength Hip Manual Muscle Testing bilateral Flexion (L2) 4- Good- Knee Strength Knee Manual Muscle Testing bilateral Flexion (S2) 4 Good Extension (L3) 4 Good Ankle/Foot Strength Ankle and Foot Manual Muscle Testing bilateral Dorsiflexion (L4) 4 Good Plantarflexion (S1) 4 Good PT-OP-Q Treatments Start: 06/26/19 15:28 Freq: Status: Active Protocol: Document 07/02/19 10:36 AW (Rec: 07/02/19 11:00 AW [id number]) Cardio Equipment Recumbent Bicycle Duration (Minutes) 5 Resistance 2 Seat Position 10 Therapeutic Exercises Supine Exercises lower trunk rotation Supine Exercise Name lower trunk rotation Side bilateral Reps/Minutes 3 minutes Comments cues to rotate within pain free range straight leg raise Supine Exercise Name straight leg raise Side bilateral Reps/Minutes 2x10 reps bilat Comments cues for slow controlled movement TrA activation Supine Exercise Name TrA activation Reps/Minutes 10 sec hold x 10 Comments added marching last two reps Sitting Exercises seated flexion stretch Sitting Exercise Name seated flexion stretch Reps/Minutes 1x5 reps Comments cues for segmental flexion Standing Exercises hip extension/kick back Standing Exercise Name hip extension/kick back Side bilateral Equipment Used rail for support Reps/Minutes 2x10 reps Comments cued for upright posture Manual Therapy Treatment Joint Mobilizations lumbar facet gapping Joint lumbar facet gapping Grade II Body Position Sidelying Reps/Duration 8 minutes Comments Pt reports relief of radicular symptoms. Taught pt positioning to perform on flat surface at home. Neuro Re-Education Treatment Balance Activities single leg stance Details single leg stance Surface firm Equipment rail for UE support Reps/Duration 6 min Comments Pt able to fade UE support to fingertips for standing ~15 sec each LE. She required 2 seated rest breaks during this activity. narrow stance Details narrow stance - EO/EC Surface firm Equipment rail for support Reps/Duration 6 min Comments Pt required seated rest break after every 2 minutes standing balance activity PT-OP-S Aquatic Treatment Start: 06/26/19 15:28 Freq: Status: Active Protocol: Document 07/14/19 16:28 [facility] (Rec: 07/14/19 16:38 [facility] [id number]) Aquatics Treatment Pool Entry/Exit Pool Entry/Exit Method Stairs Assistance Standby Assistance Water Walking [place] March Water Level Waist Level Level of Assistance Standby Assistance,Verbal Cues Comments difficulty with balance Marching Water Level Waist Level Level of Assistance Standby Assistance,Verbal Cues Sideways Water Level Chest Level Level of Assistance Standby Assistance,Verbal Cues Forwards Water Level Waist Level Level of Assistance Standby Assistance,Verbal Cues Lower Extremity Exercises squats Reps/Duration 10x Comments cues for gluteal activation Lower Extremity Stretches gastroc, soleus Body Position Standing Reps/Duration 2x30 Comments standing at wall SKTC, piriformis Body Position Standing Reps/Duration 2x30 Comments at wall HS, Quads, Body Position Standing Water Level Chest Level Equipment Small Noodle Reps/Duration 2x30 Comments hh at wall [place] Activities [place] Activities Bicycle,Cross [place],Hip Abduction/Adduction Other Activities Deep water traction with 4# peter x 10 min Equipment white noodle Duration 20 PT-OP-T Assessment and Plan Start: 06/26/19 15:28 Freq: Status: Active Protocol: Document 07/14/19 16:28 [facility] (Rec: 07/14/19 16:38 [facility] [id number]) Physical Therapy Assessment Impairments Impairments Activity Tolerance,Balance, Functional Activities, Functional Mobility,Gait,Pain, Posture,ROM,Sensation,Strength Other Impairments Gross mobility deficits and deconditioning Goals Balance Impairment Pt unable to balance single leg >5 sec Short Term Goal (STG) Pt will single leg stand >10 sec B to improve safety with activity STG Duration 6 weeks [employer] Boiler Goal (LTG) Pt will single leg stand >20 sec B to improve safety with activity LTG Duration 12 weeks Activity level Impairment Pt does not participate in regular physical activity Short Term Goal (STG) Pt will complete 20 min of physical activity daily to improve physical fitness STG Duration 6 weeks [employer]ier Boiler Goal (LTG) Pt will complete 30 min of physical activity dailty to improve physical fitness LTG Duration 12 weeks 6MWT Impairment Pt ambulated 742 ft with 1 min rest break Short Term Goal (STG) Pt will ambulate >1000 ft with <30 sec rest break during 6MWT to improve activity tolerance STG Duration 6 weeks Alf Goal (LTG) Pt will ambulate >1500 ft with <30 sec rest break during 6MWT to improve activity tolerance or 1000 ft without AD LTG Duration 12 weeks HEP Impairment Pt does not have HEP Alf Goal (LTG) Pt will demonstrate independence and safety with HEP to improve and maintain balance and physical fitness LTG Duration 12 weeks Assessment Summary Assessment Decreased exercise tolerance due to having a cold but denied pain with aquatic PT today. Cues for core stabilization with all activities. Physical Therapy Plan Frequency and Duration Frequency of Treatment 2x/Week Duration of Treatment 12 weeks Plan of Care Start Date 06/26/19 Plan of Care End Date 09/18/19 Therapeutic Interventions Therapeutic Interventions Aquatic Therapy,Balance Training,Gait Training,Home Exercise Program,Manual Therapy,Neuromuscular Re- education,Patient/Caregiver Education,Self-Care/Home Management,Soft Tissue Mobilization,Therapeutic Activities,Therapeutic Exercises Modalities Cold Pack/Ice Massage,Electric Stimulation,Hot Packs, Ultrasound Next Visit Focus/Plan Next Note Type Treatment Note Next Visit Plan Continue PT per POC
--- NOTE | 2019-07-21 17:12 | PT.OTN ---
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 (07/21/19) Other malaise (07/21/19) Physical Therapy Treatment Note PT-OP-A Visit Information Start: 06/26/19 15:28 Freq: Status: Active Protocol: Document 07/21/19 12:36 LJ (Rec: 07/21/19 17:12 LJ [email or web address]) Out-Patient Physical Therapy Visit Information Visit Information Visit Type Aquatic Treatment Note Visit Note pt 6 min late Visit Start Time 12:36 Visit Stop Time 13:24 Total Visit Minutes 48 Visit Number 02/13 Number of NAIL MAKER Visits 1 PT-OP-B Current Condition Start: 06/26/19 15:28 Freq: Status: Active Protocol: Document 06/26/19 15:20 HH (Rec: 06/26/19 16:48 HH [id number]) Current Condition History of Current Condition Onset Date Deconditioning 20 yrs, LBP/ radiculopathy 3 years Current Complaints Deconditioning, LBP, occasional L LE radiculopathy History of Current Condition Pt is 43 yo female presenting to clinic with complaints of deconditioning and hx of LBP with radiculopathy. 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 Pt was diagnosed with RA and rheumatoid vasculitis in 1993 and notes that she believes this is when she started to become deconditioned. Pt's LBP and L LE radiculopathy which was worse with minimal exertion started approximately 3 years ago. She had a partial diskectomy f/b a full diskectomy approximately 1.5 year ago with minimal relief from surgeries. Pt reports the LBP and L LE pain was so severe she stayed in nursing homes multiple times and has walked with 4WW for last 3 years. Pt notes that approximately 1 year ago her LE pain was so intense she stopped walking. Pt moved in with sister in bottom floor of the house for more socal support. Approximately 6 months ago started using CBD oil with profound relief of sx , and pt has been able to stop taking gabapentin and reduce 4WW use to only in the mornings or with long distances. As pt's LBP has improved, she is interested in improving physical fitness and reports deconditioning and poor balance limits her the most. She also reports a 70 lb weight gain ~1 year ago d/t a course of high dose steroids, and has been able to lose about 35 lbs but still feels like her weight is limiting her mobility. Pt reports biggest limitations are with long distance walking or climbing more than one flight of stairs. Prior Treatments and Tests Partial f/b full diskectomy L5 -S1 in 2018. Had aquatic therapy in [place], [place] a few years ago which she felt was beneficial. Pt also currently receiving OMT for RA . Treatment Goals Patient/Caregiver Goals Lose weight, improve fitness, walk more, stop using 4WW Prior Functional Status Baseline Function- ADL's Independent Baseline Function- Mobility Independent Baseline Function- Gait Did not use AD prior to 3 years ago. Current Functional Impairments (Reported) Functional Limitations- ADL's Independent with ADLs. Functional Limitations- Mobility/Gait Independent, uses walker in mornings or for extended distances. Personal Factors Other Personal Factors That May Effect Pt is 290lbs (had 70 lb weight Therapy/Recovery gain 1 year ago and has lost about 35 lb since then). 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 PT-OP-C Subjective Start: 06/26/19 15:28 Freq: Status: Active Protocol: Document 07/21/19 12:36 LJ (Rec: 07/21/19 17:12 LJ [email or web address]) OP-PT Subjective Patient Comments Patient Comments Pt states she felt good sore after last Pt pool session. PT-OP-D Balance Start: 06/26/19 15:28 Freq: Status: Active Protocol: Document 06/26/19 15:20 (Rec: 06/26/19 16:48 HH [id number]) Balance Tests Single Limb Standing Single Limb- Right 3s Single Limb- Left 4s PT-OP-E Functional Tests Start: 06/26/19 15:28 Freq: Status: Active Protocol: Document 06/26/19 15:20 HH (Rec: 06/26/19 18:40 HH [id number]) Functional Tests 6 Minute Walk Test Distance 742 Device Used 4WW Comments Pt took 1 min break from 3-4th minute PT-OP-G Mobility & Gait Start: 06/26/19 15:28 Freq: Status: Active Protocol: Document 06/26/19 15:20 HH (Rec: 06/26/19 16:48 [id number]) OP Mobility Evaluation Transfers Sit to Stand I but slow speed and uses UE support for pushoff. Poor descent control with stand to sit. PT-OP-H Neuro Start: 06/26/19 15:28 Freq: Status: Active Protocol: Document 06/26/19 15:20 HH (Rec: 06/26/19 16:48 [id number]) Sensation Evaluation Location Details Right Lower Extremity Light Touch Impaired Left Lower Extremity Light Touch Impaired Upper Extremity Light Touch Intact/Normal Left Little Finger Light Touch Absent Comments Summary Comments UE sensation to light touch intact except L pinky, pt reports long-term hx of neuropathic damage. LE sensation L impaired L4-S1, R impaired L5. Deep Tendon Reflex & Clonus Assessment Deep Tendon Reflex Bilateral Achilles Deep Tendon Reflex 1+ Diminished Bilateral Patellar Deep Tendon Reflex 2+ Normal Bilateral Brachioradialis Deep Tendon Reflex 2+ Normal Bilateral Tricep Deep Tendon Reflex 2+ Normal Bilateral Bicep Deep Tendon Reflex 2+ Normal Ankle Clonus Bilateral Clonus Assessment Absent Vital Signs Blood Pressure Sitting Blood Pressure (90/60-120/80 mmHg) 160/85 H Blood Pressure Source Manual Cuff Comments Vital Signs Comments After 6MWT = 182/89 H Pt's baseline = 130s/80s PT-OP-J Posture/Palpation/Skin Start: 06/26/19 15:28 Freq: Status: Active Protocol: Document 06/26/19 15:20 HH (Rec: 06/26/19 16:48 [id number]) Posture Evaluation Position Standing Evaluation View Lateral Head/C-Spine Posture Forward Head T-Spine Posture Increased Kyphosis L-Spine Posture Increased Lordosis Shoulder Posture (L) Rounded,(R) Rounded Weight Distribution Weight Shifted Right Hip Posture (L) Externally Rotated,(R) Externally Rotated Knee Posture (L) Genu Valgus,(R) Genu Valgus,(L) Genu Recurvatum,(R) Genu Recurvatum Ankle/Foot Posture (L) Pronated,(R) Pronated PT-OP-K Range of Motion Start: 06/26/19 15:28 Freq: Status: Active Protocol: Document 06/26/19 15:20 HH (Rec: 06/26/19 16:48 [id number]) Cervical Spine Range of Motion Cervical Spine Active Testing Position Sitting Comments WNL Lumbar Spine Range of Motion Lumbar Spine Active Testing Position Standing Comments Flexion fingertips to midshin, extension full range but hinging L/S Hip Goniometric Range of Motion Hip ROM Limitations Comments Excess ER, IR limited. PT-OP-L Special Tests Start: 06/26/19 15:28 Freq: Status: Active Protocol: Document 06/26/19 15:20 HH (Rec: 06/26/19 16:48 [id number]) Special Tests Other Special Tests Special Tests Babinski -ve B 6 MWT: 742 ft, 1 break (1 min long), used 4WW PT-OP-M Strength Start: 06/26/19 15:28 Freq: Status: Active Protocol: Document 06/26/19 15:20 HH (Rec: 06/26/19 16:48 [id number]) Shoulder Strength Shoulder Manual Muscle Testing bilateral Abduction (C5) 4 Good Elbow/Forearm Strength Elbow and Forearm Manual Muscle Testing bilateral Flexion (C6) 4+ Good+ Extension (C7) 4+ Good+ Wrist Strength Wrist Manual Muscle Testing bilateral Flexion (C7) 4+ Good+ Extension (C6) 4+ Good+ Hip Strength Hip Manual Muscle Testing bilateral Flexion (L2) 4- Good- Knee Strength Knee Manual Muscle Testing bilateral Flexion (S2) 4 Good Extension (L3) 4 Good Ankle/Foot Strength Ankle and Foot Manual Muscle Testing bilateral Dorsiflexion (L4) 4 Good Plantarflexion (S1) 4 Good PT-OP-Q Treatments Start: 06/26/19 15:28 Freq: Status: Active Protocol: Document 07/17/19 10:52 HH (Rec: 07/17/19 13:46 [id number]) Gym Equipment Shuttle Recovery B squats Details with ball squeeze Resistance 87 lb Shuttle Recovery Platform Stable Therapeutic Exercises Supine Exercises reverse curl Side bilateral Equipment Used medium red ex ball marches Side bilateral Comments cues for ADIM, slow controlled movement lower trunk rotation Side bilateral Comments cues for ADIM, limited range PT-OP-S Aquatic Treatment Start: 06/26/19 15:28 Freq: Status: Active Protocol: Document 07/21/19 12:36 LJ (Rec: 07/21/19 17:12 LJ [email or web address]) Aquatics Treatment Pool Entry/Exit Pool Entry/Exit Method Stairs Assistance Standby Assistance Water Walking [place] March Water Level Waist Level Level of Assistance Standby Assistance,Verbal Cues Comments difficulty with balance Marching Water Level Waist Level Level of Assistance Standby Assistance,Verbal Cues Sideways Water Level Chest Level Level of Assistance Standby Assistance,Verbal Cues Forwards Water Level Waist Level Level of Assistance Standby Assistance,Verbal Cues Lower Extremity Exercises hip CCW/CW Body Position Standing Water Level Chest Level Reps/Duration 2x15 bilat both dir Comments no hh, fast and slow HS curl jacks Water Level Chest Level Reps/Duration 3x15 Comments low impact hacky sac Water Level Chest Level Reps/Duration 3x15 bilateral CC ski Water Level Chest Level Reps/Duration 3x15 Comments sliding feet on bottom rocking horse Water Level Chest Level Reps/Duration 2x15 each LL leading Comments cueing for low impact hydrobike Reps/Duration 10 min Comments moderate pace Lower Extremity Stretches body swing Comments on wall gastroc, soleus Body Position Standing Reps/Duration 2x30 Comments standing at wall hip-spiderman Reps/Duration 2x45 SKTC, piriformis Body Position Standing Reps/Duration 2x30 Comments at wall HS, Quads, Body Position Standing Water Level Chest Level Equipment Small Noodle Reps/Duration 2x30 Comments hh at wall [place] Activities [place] Activities Bicycle,Cross Country,Hip Abduction/Adduction Other Activities Deep water traction with 4# peter x 10 min Equipment white noodle Duration 8 PT-OP-T Assessment and Plan Start: 06/26/19 15:28 Freq: Status: Active Protocol: Document 07/21/19 12:36 EDE (Rec: 07/21/19 17:12 EDE [email or web address]) Physical Therapy Assessment Impairments Impairments Activity Tolerance,Balance, Functional Activities, Functional Mobility,Gait,Pain, Posture,ROM,Sensation,Strength Other Impairments Gross mobility deficits and deconditioning Goals Balance Impairment Pt unable to balance single leg >5 sec Short Term Goal (STG) Pt will single leg stand >10 sec B to improve safety with activity STG Duration 6 weeks Longterm Goal (LTG) Pt will single leg stand >20 sec B to improve safety with activity LTG Duration 12 weeks Activity level Impairment Pt does not participate in regular physical activity Short Term Goal (STG) Pt will complete 20 min of physical activity daily to improve physical fitness STG Duration 6 weeks Grain Buyer Goal (LTG) Pt will complete 30 min of physical activity dailty to improve physical fitness LTG Duration 12 weeks 6MWT Impairment Pt ambulated 742 ft with 1 min rest break Short Term Goal (STG) Pt will ambulate >1000 ft with <30 sec rest break during 6MWT to improve activity tolerance STG Duration 6 weeks Longterm Goal (LTG) Pt will ambulate >1500 ft with <30 sec rest break during 6MWT to improve activity tolerance or 1000 ft without AD LTG Duration 12 weeks HEP Impairment Pt does not have HEP Grain Buyer Goal (LTG) Pt will demonstrate independence and safety with HEP to improve and maintain balance and physical fitness LTG Duration 12 weeks Assessment Summary Assessment Pt had good tolerance for increased difficulty and intensity of exercises. LLE shows more weakness and decreased control with some of the exercises. Better core stabilization with fewer cues. Physical Therapy Plan Frequency and Duration Frequency of Treatment 2x/Week Duration of Treatment 12 weeks Plan of Care Start Date 06/26/19 Plan of Care End Date 09/18/19 Therapeutic Interventions Therapeutic Interventions Aquatic Therapy,Balance Training,Gait Training,Home Exercise Program,Manual Therapy,Neuromuscular Re- education,Patient/Caregiver Education,Self-Care/Home Management,Soft Tissue Mobilization,Therapeutic Activities,Therapeutic Exercises Modalities Cold Pack/Ice Massage,Electric Stimulation,Hot Packs, Ultrasound Next Visit Focus/Plan Next Note Type Treatment Note Next Visit Plan Progress cardiovascular exercise, balance activities, LE strengthening Core stabilization Gait training
--- NOTE | 2019-07-23 13:50 | PT.OTN ---
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 (07/23/19) Other malaise (07/23/19) Physical Therapy Treatment Note PT-OP-A Visit Information Start: 06/26/19 15:28 Freq: Status: Active Protocol: Document 07/23/19 13:06 HH (Rec: 07/23/19 13:49 [id number]) Out-Patient Physical Therapy Visit Information Visit Information Visit Type Treatment Note Visit Note SPT Ambrosio led tx session Visit Start Time 13:06 Visit Stop Time 13:45 Total Visit Minutes 39 Visit Number 03/15 Number of SCHOOL TRANSPORTATION DIRECTOR Visits 0 PT-OP-B Current Condition Start: 06/26/19 15:28 Freq: Status: Active Protocol: Document 06/26/19 15:20 HH (Rec: 06/26/19 16:48 [id number]) Current Condition History of Current Condition Onset Date Deconditioning 20 yrs, LBP/ radiculopathy 3 years Current Complaints Deconditioning, LBP, occasional L LE radiculopathy History of Current Condition Pt is 43 yo female presenting to clinic with complaints of deconditioning and hx of LBP with radiculopathy. 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 Pt was diagnosed with RA and rheumatoid vasculitis in 1993 and notes that she believes this is when she started to become deconditioned. Pt's LBP and L LE radiculopathy which was worse with minimal exertion started approximately 3 years ago. She had a partial diskectomy f/b a full diskectomy approximately 1.5 year ago with minimal relief from surgeries. Pt reports the LBP and L LE pain was so severe she stayed in nursing homes multiple times and has walked with 4WW for last 3 years. Pt notes that approximately 1 year ago her LE pain was so intense she stopped walking. Pt moved in with sister in bottom floor of the house for more socal support. Approximately 6 months ago started using CBD oil with profound relief of sx , and pt has been able to stop taking gabapentin and reduce 4WW use to only in the mornings or with long distances. As pt's LBP has improved, she is interested in improving physical fitness and reports deconditioning and poor balance limits her the most. She also reports a 70 lb weight gain ~1 year ago d/t a course of high dose steroids, and has been able to lose about 35 lbs but still feels like her weight is limiting her mobility. Pt reports biggest limitations are with long distance walking or climbing more than one flight of stairs. Prior Treatments and Tests Partial f/b full diskectomy L5 -S1 in 2018. Had aquatic therapy in [place], [place] a few years ago which she felt was beneficial. Pt also currently receiving OMT for RA . Treatment Goals Patient/Caregiver Goals Lose weight, improve fitness, walk more, stop using 4WW Prior Functional Status Baseline Function- ADL's Independent Baseline Function- Mobility Independent Baseline Function- Gait Did not use AD prior to 3 years ago. Current Functional Impairments (Reported) Functional Limitations- ADL's Independent with ADLs. Functional Limitations- Mobility/Gait Independent, uses walker in mornings or for extended distances. Personal Factors Other Personal Factors That May Effect Pt is 290lbs (had 70 lb weight Therapy/Recovery gain 1 year ago and has lost about 35 lb since then). 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 PT-OP-C Subjective Start: 06/26/19 15:28 Freq: Status: Active Protocol: Document 07/23/19 13:06 (Rec: 07/23/19 13:49 [id number]) OP-PT Subjective Patient Comments Patient Comments Im recovering from my cold but overall im feeling pretty good. PT-OP-D Balance Start: 06/26/19 15:28 Freq: Status: Active Protocol: Document 06/26/19 15:20 (Rec: 06/26/19 16:48 [id number]) Balance Tests Single Limb Standing Single Limb- Right 3s Single Limb- Left 4s PT-OP-E Functional Tests Start: 06/26/19 15:28 Freq: Status: Active Protocol: Document 06/26/19 15:20 (Rec: 06/26/19 18:40 [id number]) Functional Tests 6 Minute Walk Test Distance 742 Device Used 4WW Comments Pt took 1 min break from 3-4th minute PT-OP-G Mobility & Gait Start: 06/26/19 15:28 Freq: Status: Active Protocol: Document 06/26/19 15:20 HH (Rec: 06/26/19 16:48 [id number]) OP Mobility Evaluation Transfers Sit to Stand I but slow speed and uses UE support for pushoff. Poor descent control with stand to sit. PT-OP-H Neuro Start: 06/26/19 15:28 Freq: Status: Active Protocol: Document 06/26/19 15:20 HH (Rec: 06/26/19 16:48 [id number]) Sensation Evaluation Location Details Right Lower Extremity Light Touch Impaired Left Lower Extremity Light Touch Impaired Upper Extremity Light Touch Intact/Normal Left Little Finger Light Touch Absent Comments Summary Comments UE sensation to light touch intact except L pinky, pt reports long-term hx of neuropathic damage. LE sensation L impaired L4-S1, R impaired L5. Deep Tendon Reflex & Clonus Assessment Deep Tendon Reflex Bilateral Achilles Deep Tendon Reflex 1+ Diminished Bilateral Patellar Deep Tendon Reflex 2+ Normal Bilateral Brachioradialis Deep Tendon Reflex 2+ Normal Bilateral Tricep Deep Tendon Reflex 2+ Normal Bilateral Bicep Deep Tendon Reflex 2+ Normal Ankle Clonus Bilateral Clonus Assessment Absent Vital Signs Blood Pressure Sitting Blood Pressure (90/60-120/80 mmHg) 160/85 H Blood Pressure Source Manual Cuff Comments Vital Signs Comments After 6MWT = 182/89 H Pt's baseline = 130s/80s PT-OP-J Posture/Palpation/Skin Start: 06/26/19 15:28 Freq: Status: Active Protocol: Document 06/26/19 15:20 HH (Rec: 06/26/19 16:48 [id number]) Posture Evaluation Position Standing Evaluation View Lateral Head/C-Spine Posture Forward Head T-Spine Posture Increased Kyphosis L-Spine Posture Increased Lordosis Shoulder Posture (L) Rounded,(R) Rounded Weight Distribution Weight Shifted Right Hip Posture (L) Externally Rotated,(R) Externally Rotated Knee Posture (L) Genu Valgus,(R) Genu Valgus,(L) Genu Recurvatum,(R) Genu Recurvatum Ankle/Foot Posture (L) Pronated,(R) Pronated PT-OP-K Range of Motion Start: 06/26/19 15:28 Freq: Status: Active Protocol: Document 06/26/19 15:20 HH (Rec: 06/26/19 16:48 [id number]) Cervical Spine Range of Motion Cervical Spine Active Testing Position Sitting Comments WNL Lumbar Spine Range of Motion Lumbar Spine Active Testing Position Standing Comments Flexion fingertips to midshin, extension full range but hinging L/S Hip Goniometric Range of Motion Hip ROM Limitations Comments Excess ER, IR limited. PT-OP-L Special Tests Start: 06/26/19 15:28 Freq: Status: Active Protocol: Document 06/26/19 15:20 HH (Rec: 06/26/19 16:48 [id number]) Special Tests Other Special Tests Special Tests Babinski -ve B 6 MWT: 742 ft, 1 break (1 min long), used 4WW PT-OP-M Strength Start: 06/26/19 15:28 Freq: Status: Active Protocol: Document 06/26/19 15:20 HH (Rec: 06/26/19 16:48 [id number]) Shoulder Strength Shoulder Manual Muscle Testing bilateral Abduction (C5) 4 Good Elbow/Forearm Strength Elbow and Forearm Manual Muscle Testing bilateral Flexion (C6) 4+ Good+ Extension (C7) 4+ Good+ Wrist Strength Wrist Manual Muscle Testing bilateral Flexion (C7) 4+ Good+ Extension (C6) 4+ Good+ Hip Strength Hip Manual Muscle Testing bilateral Flexion (L2) 4- Good- Knee Strength Knee Manual Muscle Testing bilateral Flexion (S2) 4 Good Extension (L3) 4 Good Ankle/Foot Strength Ankle and Foot Manual Muscle Testing bilateral Dorsiflexion (L4) 4 Good Plantarflexion (S1) 4 Good PT-OP-Q Treatments Start: 06/26/19 15:28 Freq: Status: Active Protocol: Document 07/23/19 13:06 (Rec: 07/23/19 13:49 [id number]) Cardio Equipment Recumbent Stepper (Sci-Fit) Duration (Minutes) 6 Resistance 0 Gym Equipment Shuttle Recovery calf raise Resistance 62# Shuttle Recovery Platform Stable Reps/Time 12 x2 SL squat Resistance 67# Shuttle Recovery Platform Stable Reps/Time 12 x2 B squats Resistance 112lbs Shuttle Recovery Platform Stable Reps/Time 12 x 3 Shuttle Rebound blue Exercise Details static stance Reps/Duration 4 mins Comments lateral weight shift w/o UE support Therapeutic Exercises Supine Exercises reverse curl Supine Exercise Name leg hold (hip at 90 degrees) Side bilateral Equipment Used pillow between legs Reps/Minutes 10 sec x 4 marches Side bilateral Comments cues for ADIM, slow controlled movement TrA activation Supine Exercise Name hip adductor squeeze Equipment Used pillow Reps/Minutes 10 secs x 2 PT-OP-S Aquatic Treatment Start: 06/26/19 15:28 Freq: Status: Active Protocol: Document 07/21/19 12:36 LJ (Rec: 07/21/19 17:12 LJ [id number]) Aquatics Treatment Pool Entry/Exit Pool Entry/Exit Method Stairs Assistance Standby Assistance Water Walking [place] March Water Level Waist Level Level of Assistance Standby Assistance,Verbal Cues Comments difficulty with balance Marching Water Level Waist Level Level of Assistance Standby Assistance,Verbal Cues Sideways Water Level Chest Level Level of Assistance Standby Assistance,Verbal Cues Forwards Water Level Waist Level Level of Assistance Standby Assistance,Verbal Cues Lower Extremity Exercises hip CCW/CW Body Position Standing Water Level Chest Level Reps/Duration 2x15 bilat both dir Comments no hh, fast and slow HS curl jacks Water Level Chest Level Reps/Duration 3x15 Comments low impact hacky sac Water Level Chest Level Reps/Duration 3x15 bilateral CC ski Water Level Chest Level Reps/Duration 3x15 Comments sliding feet on bottom rocking horse Water Level Chest Level Reps/Duration 2x15 each LL leading Comments cueing for low impact hydrobike Reps/Duration 10 min Comments moderate pace Lower Extremity Stretches body swing Comments on wall gastroc, soleus Body Position Standing Reps/Duration 2x30 Comments standing at wall hip-spiderman Reps/Duration 2x45 SKTC, piriformis Body Position Standing Reps/Duration 2x30 Comments at wall HS, Quads, Body Position Standing Water Level Chest Level Equipment Small Noodle Reps/Duration 2x30 Comments hh at wall [place] Activities [place] Activities Bicycle,Cross Country,Hip Abduction/Adduction Other Activities Deep water traction with 4# peter x 10 min Equipment white noodle Duration 8 PT-OP-T Assessment and Plan Start: 06/26/19 15:28 Freq: Status: Active Protocol: Document 07/23/19 13:06 HH (Rec: 07/23/19 13:49 HH [id number]) Physical Therapy Assessment Goals Balance Impairment Pt unable to balance single leg >5 sec Short Term Goal (STG) Pt will single leg stand >10 sec B to improve safety with activity STG Duration 6 weeks Nursing Home Goal (LTG) Pt will single leg stand >20 sec B to improve safety with activity LTG Duration 12 weeks Activity level Impairment Pt does not participate in regular physical activity Short Term Goal (STG) Pt will complete 20 min of physical activity daily to improve physical fitness STG Duration 6 weeks Nursing Home Goal (LTG) Pt will complete 30 min of physical activity dailty to improve physical fitness LTG Duration 12 weeks 6MWT Impairment Pt ambulated 742 ft with 1 min rest break Short Term Goal (STG) Pt will ambulate >1000 ft with <30 sec rest break during 6MWT to improve activity tolerance STG Duration 6 weeks Nursing Home Goal (LTG) Pt will ambulate >1500 ft with <30 sec rest break during 6MWT to improve activity tolerance or 1000 ft without AD LTG Duration 12 weeks HEP Impairment Pt does not have HEP Collar Baster Goal (LTG) Pt will demonstrate independence and safety with HEP to improve and maintain balance and physical fitness LTG Duration 12 weeks Assessment Summary Assessment Pt showed improved activity tolerance and BLE strength today. Better core stabilization with minimal cues needed. She also stated Havent felt working out like this for awhile, my legs are little shaky. Today's BW= 293lbs Physical Therapy Plan Next Visit Focus/Plan Next Note Type Treatment Note Next Visit Plan Progress cardiovascular exercise, balance activities, LE strengthening Core stabilization Gait training
--- NOTE | 2019-07-30 14:32 | PT.OTN ---
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 Pt is 15 mins late Visit Start Time 14:02 Visit Stop Time 14:30 Total Visit Minutes 28 Visit Number 04/15 PT-OP-B Current Condition Start: 06/26/19 15:28 Freq: Status: Active Protocol: Document 06/26/19 15:20 HH (Rec: 06/26/19 16:48 [id number]) Current Condition History of Current Condition Onset Date Deconditioning 20 yrs, LBP/ radiculopathy 3 years Current Complaints Deconditioning, LBP, occasional L LE radiculopathy History of Current Condition Pt is 43 yo female presenting to clinic with complaints of deconditioning and hx of LBP with radiculopathy. 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 Pt was diagnosed with RA and rheumatoid vasculitis in 1993 and notes that she believes this is when she started to become deconditioned. Pt's LBP and L LE radiculopathy which was worse with minimal exertion started approximately 3 years ago. She had a partial diskectomy f/b a full diskectomy approximately 1.5 year ago with minimal relief from surgeries. Pt reports the LBP and L LE pain was so severe she stayed in nursing homes multiple times and has walked with 4WW for last 3 years. Pt notes that approximately 1 year ago her LE pain was so intense she stopped walking. Pt moved in with sister in bottom floor of the house for more socal support. Approximately 6 months ago started using CBD oil with profound relief of sx , and pt has been able to stop taking gabapentin and reduce 4WW use to only in the mornings or with long distances. As pt's LBP has improved, she is interested in improving physical fitness and reports deconditioning and poor balance limits her the most. She also reports a 70 lb weight gain ~1 year ago d/t a course of high dose steroids, and has been able to lose about 35 lbs but still feels like her weight is limiting her mobility. Pt reports biggest limitations are with long distance walking or climbing more than one flight of stairs. Prior Treatments and Tests Partial f/b full diskectomy L5 -S1 in 2018. Had aquatic therapy in [place], [place] a few years ago which she felt was beneficial. Pt also currently receiving OMT for RA . Treatment Goals Patient/Caregiver Goals Lose weight, improve fitness, walk more, stop using 4WW Prior Functional Status Baseline Function- ADL's Independent Baseline Function- Mobility Independent Baseline Function- Gait Did not use AD prior to 3 years ago. Current Functional Impairments (Reported) Functional Limitations- ADL's Independent with ADLs. Functional Limitations- Mobility/Gait Independent, uses walker in mornings or for extended distances. Personal Factors Other Personal Factors That May Effect Pt is 290lbs (had 70 lb weight Therapy/Recovery gain 1 year ago and has lost about 35 lb since then). 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 PT-OP-C Subjective Start: 06/26/19 15:28 Freq: Status: Active Protocol: Document 07/30/19 14:02 (Rec: 07/30/19 14:32 [id number]) OP-PT Subjective Patient Comments Patient Comments I havent been moving much and im forgetful for my appointment schedule. I need a reminder for that. PT-OP-D Balance Start: 06/26/19 15:28 Freq: Status: Active Protocol: Document 06/26/19 15:20 (Rec: 06/26/19 16:48 [id number]) Balance Tests Single Limb Standing Single Limb- Right 3s Single Limb- Left 4s PT-OP-E Functional Tests Start: 06/26/19 15:28 Freq: Status: Active Protocol: Document 06/26/19 15:20 (Rec: 06/26/19 18:40 [id number]) Functional Tests 6 Minute Walk Test Distance 742 Device Used 4WW Comments Pt took 1 min break from 3-4th minute PT-OP-G Mobility & Gait Start: 06/26/19 15:28 Freq: Status: Active Protocol: Document 06/26/19 15:20 HH (Rec: 06/26/19 16:48 [id number]) OP Mobility Evaluation Transfers Sit to Stand I but slow speed and uses UE support for pushoff. Poor descent control with stand to sit. PT-OP-H Neuro Start: 06/26/19 15:28 Freq: Status: Active Protocol: Document 06/26/19 15:20 HH (Rec: 06/26/19 16:48 [id number]) Sensation Evaluation Location Details Right Lower Extremity Light Touch Impaired Left Lower Extremity Light Touch Impaired Upper Extremity Light Touch Intact/Normal Left Little Finger Light Touch Absent Comments Summary Comments UE sensation to light touch intact except L pinky, pt reports long-term hx of neuropathic damage. LE sensation L impaired L4-S1, R impaired L5. Deep Tendon Reflex & Clonus Assessment Deep Tendon Reflex Bilateral Achilles Deep Tendon Reflex 1+ Diminished Bilateral Patellar Deep Tendon Reflex 2+ Normal Bilateral Brachioradialis Deep Tendon Reflex 2+ Normal Bilateral Tricep Deep Tendon Reflex 2+ Normal Bilateral Bicep Deep Tendon Reflex 2+ Normal Ankle Clonus Bilateral Clonus Assessment Absent Vital Signs Blood Pressure Sitting Blood Pressure (90/60-120/80 mmHg) 160/85 H Blood Pressure Source Manual Cuff Comments Vital Signs Comments After 6MWT = 182/89 H Pt's baseline = 130s/80s PT-OP-J Posture/Palpation/Skin Start: 06/26/19 15:28 Freq: Status: Active Protocol: Document 06/26/19 15:20 HH (Rec: 06/26/19 16:48 [id number]) Posture Evaluation Position Standing Evaluation View Lateral Head/C-Spine Posture Forward Head T-Spine Posture Increased Kyphosis L-Spine Posture Increased Lordosis Shoulder Posture (L) Rounded,(R) Rounded Weight Distribution Weight Shifted Right Hip Posture (L) Externally Rotated,(R) Externally Rotated Knee Posture (L) Genu Valgus,(R) Genu Valgus,(L) Genu Recurvatum,(R) Genu Recurvatum Ankle/Foot Posture (L) Pronated,(R) Pronated PT-OP-K Range of Motion Start: 06/26/19 15:28 Freq: Status: Active Protocol: Document 06/26/19 15:20 HH (Rec: 06/26/19 16:48 [id number]) Cervical Spine Range of Motion Cervical Spine Active Testing Position Sitting Comments WNL Lumbar Spine Range of Motion Lumbar Spine Active Testing Position Standing Comments Flexion fingertips to midshin, extension full range but hinging L/S Hip Goniometric Range of Motion Hip ROM Limitations Comments Excess ER, IR limited. PT-OP-L Special Tests Start: 06/26/19 15:28 Freq: Status: Active Protocol: Document 06/26/19 15:20 (Rec: 06/26/19 16:48 [id number]) Special Tests Other Special Tests Special Tests Babinski -ve B 6 MWT: 742 ft, 1 break (1 min long), used 4WW PT-OP-M Strength Start: 06/26/19 15:28 Freq: Status: Active Protocol: Document 06/26/19 15:20 (Rec: 06/26/19 16:48 [id number]) Shoulder Strength Shoulder Manual Muscle Testing bilateral Abduction (C5) 4 Good Elbow/Forearm Strength Elbow and Forearm Manual Muscle Testing bilateral Flexion (C6) 4+ Good+ Extension (C7) 4+ Good+ Wrist Strength Wrist Manual Muscle Testing bilateral Flexion (C7) 4+ Good+ Extension (C6) 4+ Good+ Hip Strength Hip Manual Muscle Testing bilateral Flexion (L2) 4- Good- Knee Strength Knee Manual Muscle Testing bilateral Flexion (S2) 4 Good Extension (L3) 4 Good Ankle/Foot Strength Ankle and Foot Manual Muscle Testing bilateral Dorsiflexion (L4) 4 Good Plantarflexion (S1) 4 Good PT-OP-Q Treatments Start: 06/26/19 15:28 Freq: Status: Active Protocol: Document 07/30/19 14:02 (Rec: 07/30/19 14:32 [id number]) Cardio Equipment Recumbent Elliptical (Biodex) Duration (Minutes) 6 Resistance 1.5 Other RPM 44 Gym Equipment Shuttle Recovery SL squat Resistance #62 Shuttle Recovery Platform Stable Reps/Time 12 x2 B squats Resistance #125 lbs Shuttle Recovery Platform Stable Reps/Time 12 x 3 Therapeutic Exercises Supine Exercises reverse curl Supine Exercise Name leg hold (hip at 90 degrees) Side bilateral Reps/Minutes 10 sec x 5 Self-Care/Home Management Treatment Education Other Education education on weaning off from using 4WW to facilitate upright posture and mobility. PT-OP-S Aquatic Treatment Start: 06/26/19 15:28 Freq: Status: Active Protocol: Document 07/21/19 12:36 LJ (Rec: 07/21/19 17:12 LJ [id number]) Aquatics Treatment Pool Entry/Exit Pool Entry/Exit Method Stairs Assistance Standby Assistance Water Walking [place] March Water Level Waist Level Level of Assistance Standby Assistance,Verbal Cues Comments difficulty with balance Marching Water Level Waist Level Level of Assistance Standby Assistance,Verbal Cues Sideways Water Level Chest Level Level of Assistance Standby Assistance,Verbal Cues Forwards Water Level Waist Level Level of Assistance Standby Assistance,Verbal Cues Lower Extremity Exercises hip CCW/CW Body Position Standing Water Level Chest Level Reps/Duration 2x15 bilat both dir Comments no hh, fast and slow HS curl jacks Water Level Chest Level Reps/Duration 3x15 Comments low impact hacky sac Water Level Chest Level Reps/Duration 3x15 bilateral CC ski Water Level Chest Level Reps/Duration 3x15 Comments sliding feet on bottom rocking horse Water Level Chest Level Reps/Duration 2x15 each LL leading Comments cueing for low impact hydrobike Reps/Duration 10 min Comments moderate pace Lower Extremity Stretches body swing Comments on wall gastroc, soleus Body Position Standing Reps/Duration 2x30 Comments standing at wall hip-spiderman Reps/Duration 2x45 SKTC, piriformis Body Position Standing Reps/Duration 2x30 Comments at wall HS, Quads, Body Position Standing Water Level Chest Level Equipment Small Noodle Reps/Duration 2x30 Comments hh at wall [place] Activities [place] Activities Bicycle,Cross Country,Hip Abduction/Adduction Other Activities Deep water traction with 4# peter x 10 min Equipment white noodle Duration 8 PT-OP-T Assessment and Plan Start: 06/26/19 15:28 Freq: Status: Active Protocol: Document 07/30/19 14:02 HH (Rec: 07/30/19 14:32 HH [id number]) Physical Therapy Assessment Goals Balance Impairment Pt unable to balance single leg >5 sec Short Term Goal (STG) Pt will single leg stand >10 sec B to improve safety with activity STG Duration 6 weeks Counsellors Goal (LTG) Pt will single leg stand >20 sec B to improve safety with activity LTG Duration 12 weeks Activity level Impairment Pt does not participate in regular physical activity Short Term Goal (STG) Pt will complete 20 min of physical activity daily to improve physical fitness STG Duration 6 weeks Counsellors Goal (LTG) Pt will complete 30 min of physical activity dailty to improve physical fitness LTG Duration 12 weeks 6MWT Impairment Pt ambulated 742 ft with 1 min rest break Short Term Goal (STG) Pt will ambulate >1000 ft with <30 sec rest break during 6MWT to improve activity tolerance STG Duration 6 weeks Counsellors Goal (LTG) Pt will ambulate >1500 ft with <30 sec rest break during 6MWT to improve activity tolerance or 1000 ft without AD LTG Duration 12 weeks HEP Impairment Pt does not have HEP Counsellors Goal (LTG) Pt will demonstrate independence and safety with HEP to improve and maintain balance and physical fitness LTG Duration 12 weeks Assessment Summary Assessment Pt reports she has been using her 4WW for years for balance and chronic back pain but she' s been relying on it less. Recommended pt to wean off from 4 WW for daily mobility. Pt also appears to be quite steady and mobile during gait assessment. Printed appt schedule for pt at the end of session. Weight for today= 292.5 lbs. Physical Therapy Plan Next Visit Focus/Plan Next Note Type Treatment Note Next Visit Plan Progress cardiovascular exercise, balance activities, LE strengthening Core stabilization Gait training
--- NOTE | 2019-08-04 16:25 | PT-OP ANOTE ---
DNS for aquatic PT appt.
--- NOTE | 2019-08-06 14:32 | PT.OTN ---
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 (08/06/19) Other malaise (08/06/19) Physical Therapy Treatment Note PT-OP-A Visit Information Start: 06/26/19 15:28 Freq: Status: Active Protocol: Document 08/06/19 13:46 HH (Rec: 08/06/19 14:32 HH [id number]) Out-Patient Physical Therapy Visit Information Visit Information Visit Type Treatment Note Visit Note SPT Ferchosebastian led tx session. Visit Start Time 13:46 Visit Stop Time 14:26 Total Visit Minutes 40 Visit Number 05/16 PT-OP-B Current Condition Start: 06/26/19 15:28 Freq: Status: Active Protocol: Document 06/26/19 15:20 HH (Rec: 06/26/19 16:48 HH [id number]) Current Condition History of Current Condition Onset Date Deconditioning 20 yrs, LBP/ radiculopathy 3 years Current Complaints Deconditioning, LBP, occasional L LE radiculopathy History of Current Condition Pt is 43 yo female presenting to clinic with complaints of deconditioning and hx of LBP with radiculopathy. 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 Pt was diagnosed with RA and rheumatoid vasculitis in 1993 and notes that she believes this is when she started to become deconditioned. Pt's LBP and L LE radiculopathy which was worse with minimal exertion started approximately 3 years ago. She had a partial diskectomy f/b a full diskectomy approximately 1.5 year ago with minimal relief from surgeries. Pt reports the LBP and L LE pain was so severe she stayed in nursing homes multiple times and has walked with 4WW for last 3 years. Pt notes that approximately 1 year ago her LE pain was so intense she stopped walking. Pt moved in with sister in bottom floor of the house for more socal support. Approximately 6 months ago started using CBD oil with profound relief of sx , and pt has been able to stop taking gabapentin and reduce 4WW use to only in the mornings or with long distances. As pt's LBP has improved, she is interested in improving physical fitness and reports deconditioning and poor balance limits her the most. She also reports a 70 lb weight gain ~1 year ago d/t a course of high dose steroids, and has been able to lose about 35 lbs but still feels like her weight is limiting her mobility. Pt reports biggest limitations are with long distance walking or climbing more than one flight of stairs. Prior Treatments and Tests Partial f/b full diskectomy L5 -S1 in 2018. Had aquatic therapy in [place], [place] a few years ago which she felt was beneficial. Pt also currently receiving OMT for RA . Treatment Goals Patient/Caregiver Goals Lose weight, improve fitness, walk more, stop using 4WW Prior Functional Status Baseline Function- ADL's Independent Baseline Function- Mobility Independent Baseline Function- Gait Did not use AD prior to 3 years ago. Current Functional Impairments (Reported) Functional Limitations- ADL's Independent with ADLs. Functional Limitations- Mobility/Gait Independent, uses walker in mornings or for extended distances. Personal Factors Other Personal Factors That May Effect Pt is 290lbs (had 70 lb weight Therapy/Recovery gain 1 year ago and has lost about 35 lb since then). 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 PT-OP-C Subjective Start: 06/26/19 15:28 Freq: Status: Active Protocol: Document 08/06/19 13:46 HH (Rec: 08/06/19 14:32 HH [id number]) OP-PT Subjective Patient Comments Patient Comments My back and left leg has been doing pretty good lately. But i am still feeling a bit sick and my upper back has been getting sore. Patient Reported Progress Improving PT-OP-D Balance Start: 06/26/19 15:28 Freq: Status: Active Protocol: Document 06/26/19 15:20 HH (Rec: 06/26/19 16:48 [id number]) Balance Tests Single Limb Standing Single Limb- Right 3s Single Limb- Left 4s PT-OP-E Functional Tests Start: 06/26/19 15:28 Freq: Status: Active Protocol: Document 06/26/19 15:20 HH (Rec: 06/26/19 18:40 HH [id number]) Functional Tests 6 Minute Walk Test Distance 742 Device Used 4WW Comments Pt took 1 min break from 3-4th minute PT-OP-G Mobility & Gait Start: 06/26/19 15:28 Freq: Status: Active Protocol: Document 06/26/19 15:20 HH (Rec: 06/26/19 16:48 [id number]) OP Mobility Evaluation Transfers Sit to Stand I but slow speed and uses UE support for pushoff. Poor descent control with stand to sit. PT-OP-H Neuro Start: 06/26/19 15:28 Freq: Status: Active Protocol: Document 06/26/19 15:20 HH (Rec: 06/26/19 16:48 [id number]) Sensation Evaluation Location Details Right Lower Extremity Light Touch Impaired Left Lower Extremity Light Touch Impaired Upper Extremity Light Touch Intact/Normal Left Little Finger Light Touch Absent Comments Summary Comments UE sensation to light touch intact except L pinky, pt reports long-term hx of neuropathic damage. LE sensation L impaired L4-S1, R impaired L5. Deep Tendon Reflex & Clonus Assessment Deep Tendon Reflex Bilateral Achilles Deep Tendon Reflex 1+ Diminished Bilateral Patellar Deep Tendon Reflex 2+ Normal Bilateral Brachioradialis Deep Tendon Reflex 2+ Normal Bilateral Tricep Deep Tendon Reflex 2+ Normal Bilateral Bicep Deep Tendon Reflex 2+ Normal Ankle Clonus Bilateral Clonus Assessment Absent Vital Signs Blood Pressure Sitting Blood Pressure (90/60-120/80 mmHg) 160/85 H Blood Pressure Source Manual Cuff Comments Vital Signs Comments After 6MWT = 182/89 H Pt's baseline = 130s/80s PT-OP-J Posture/Palpation/Skin Start: 06/26/19 15:28 Freq: Status: Active Protocol: Document 06/26/19 15:20 HH (Rec: 06/26/19 16:48 [id number]) Posture Evaluation Position Standing Evaluation View Lateral Head/C-Spine Posture Forward Head T-Spine Posture Increased Kyphosis L-Spine Posture Increased Lordosis Shoulder Posture (L) Rounded,(R) Rounded Weight Distribution Weight Shifted Right Hip Posture (L) Externally Rotated,(R) Externally Rotated Knee Posture (L) Genu Valgus,(R) Genu Valgus,(L) Genu Recurvatum,(R) Genu Recurvatum Ankle/Foot Posture (L) Pronated,(R) Pronated PT-OP-K Range of Motion Start: 06/26/19 15:28 Freq: Status: Active Protocol: Document 06/26/19 15:20 HH (Rec: 06/26/19 16:48 HH [id number]) Cervical Spine Range of Motion Cervical Spine Active Testing Position Sitting Comments WNL Lumbar Spine Range of Motion Lumbar Spine Active Testing Position Standing Comments Flexion fingertips to midshin, extension full range but hinging L/S Hip Goniometric Range of Motion Hip ROM Limitations Comments Excess ER, IR limited. PT-OP-L Special Tests Start: 06/26/19 15:28 Freq: Status: Active Protocol: Document 06/26/19 15:20 HH (Rec: 06/26/19 16:48 [id number]) Special Tests Other Special Tests Special Tests Babinski -ve B 6 MWT: 742 ft, 1 break (1 min long), used 4WW PT-OP-M Strength Start: 06/26/19 15:28 Freq: Status: Active Protocol: Document 06/26/19 15:20 HH (Rec: 06/26/19 16:48 [id number]) Shoulder Strength Shoulder Manual Muscle Testing bilateral Abduction (C5) 4 Good Elbow/Forearm Strength Elbow and Forearm Manual Muscle Testing bilateral Flexion (C6) 4+ Good+ Extension (C7) 4+ Good+ Wrist Strength Wrist Manual Muscle Testing bilateral Flexion (C7) 4+ Good+ Extension (C6) 4+ Good+ Hip Strength Hip Manual Muscle Testing bilateral Flexion (L2) 4- Good- Knee Strength Knee Manual Muscle Testing bilateral Flexion (S2) 4 Good Extension (L3) 4 Good Ankle/Foot Strength Ankle and Foot Manual Muscle Testing bilateral Dorsiflexion (L4) 4 Good Plantarflexion (S1) 4 Good PT-OP-Q Treatments Start: 06/26/19 15:28 Freq: Status: Active Protocol: Document 08/06/19 13:46 HH (Rec: 08/06/19 14:32 [id number]) Cardio Equipment Recumbent Stepper (Sci-Fit) Duration (Minutes) 5 Resistance 5 Other 40-50 RPM Treadmill Duration (Minutes) 4 Speed 1.2-1.4 Incline 0 Other with UE support. Pt presents increased SOB starting from 2nd min. Gym Equipment Shuttle Recovery B squats Resistance #125 lbs Shuttle Recovery Platform Stable Reps/Time 20 x3 Shuttle Rebound blue Exercise Details lateral and forward weight shift Reps/Duration 6 mins Therapeutic Exercises Supine Exercises bridging Supine Exercise Name bridging without trunk extension Equipment Used ball between knees Reps/Minutes 3 secs hold x 10 x 2 reverse curl Supine Exercise Name leg hold (hip at 90 degrees) Side bilateral Reps/Minutes 5 secs x 8 PT-OP-S Aquatic Treatment Start: 06/26/19 15:28 Freq: Status: Active Protocol: Document 07/21/19 12:36 LJ (Rec: 07/21/19 17:12 LJ [email or web address]) Aquatics Treatment Pool Entry/Exit Pool Entry/Exit Method Stairs Assistance Standby Assistance Water Walking [place] March Water Level Waist Level Level of Assistance Standby Assistance,Verbal Cues Comments difficulty with balance Marching Water Level Waist Level Level of Assistance Standby Assistance,Verbal Cues Sideways Water Level Chest Level Level of Assistance Standby Assistance,Verbal Cues Forwards Water Level Waist Level Level of Assistance Standby Assistance,Verbal Cues Lower Extremity Exercises hip CCW/CW Body Position Standing Water Level Chest Level Reps/Duration 2x15 bilat both dir Comments no hh, fast and slow HS curl jacks Water Level Chest Level Reps/Duration 3x15 Comments low impact hacky sac Water Level Chest Level Reps/Duration 3x15 bilateral CC ski Water Level Chest Level Reps/Duration 3x15 Comments sliding feet on bottom rocking horse Water Level Chest Level Reps/Duration 2x15 each LL leading Comments cueing for low impact hydrobike Reps/Duration 10 min Comments moderate pace Lower Extremity Stretches body swing Comments on wall gastroc, soleus Body Position Standing Reps/Duration 2x30 Comments standing at wall hip-spiderman Reps/Duration 2x45 SKTC, piriformis Body Position Standing Reps/Duration 2x30 Comments at wall HS, Quads, Body Position Standing Water Level Chest Level Equipment Small Noodle Reps/Duration 2x30 Comments hh at wall [place] Activities [place] Activities Bicycle,Cross Country,Hip Abduction/Adduction Other Activities Deep water traction with 4# peter x 10 min Equipment white noodle Duration 8 PT-OP-T Assessment and Plan Start: 06/26/19 15:28 Freq: Status: Active Protocol: Document 08/06/19 13:46 HH (Rec: 08/06/19 14:32 HH [id number]) Physical Therapy Assessment Goals Balance Impairment Pt unable to balance single leg >5 sec Short Term Goal (STG) Pt will single leg stand >10 sec B to improve safety with activity STG Duration 6 weeks Senior Care Goal (LTG) Pt will single leg stand >20 sec B to improve safety with activity LTG Duration 12 weeks Activity level Impairment Pt does not participate in regular physical activity Short Term Goal (STG) Pt will complete 20 min of physical activity daily to improve physical fitness STG Duration 6 weeks Farm Rancher Goal (LTG) Pt will complete 30 min of physical activity dailty to improve physical fitness LTG Duration 12 weeks 6MWT Impairment Pt ambulated 742 ft with 1 min rest break Short Term Goal (STG) Pt will ambulate >1000 ft with <30 sec rest break during 6MWT to improve activity tolerance STG Duration 6 weeks Senior Care Goal (LTG) Pt will ambulate >1500 ft with <30 sec rest break during 6MWT to improve activity tolerance or 1000 ft without AD LTG Duration 12 weeks HEP Impairment Pt does not have HEP Farm Rancher Goal (LTG) Pt will demonstrate independence and safety with HEP to improve and maintain balance and physical fitness LTG Duration 12 weeks Assessment Summary Assessment Pt reports her back and radicular LLE pain have been feeling pretty good. tx focused on LE strengtehning, balance training. Added walking program on treadmill today. Pt showed increased SOB / fatigue starting from 2nd minute and only able to maxx 4 mins in total with UE support. Educated pt to walk and be compliant to both land and aquatic therapy to improve her fitness. Physical Therapy Plan Next Visit Focus/Plan Next Note Type Treatment Note Next Visit Plan assess post treadmill tolerance. Progress cardiovascular exercise, balance activities, LE strengthening Core stabilization Gait training
--- NOTE | 2019-08-11 12:00 | PT.OTN ---
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 (08/11/19) Other malaise (08/11/19) Physical Therapy Treatment Note PT-OP-A Visit Information Start: 06/26/19 15:28 Freq: Status: Active Protocol: Document 08/11/19 12:00 CLB (Rec: 08/11/19 15:33 CLB [email or web address]) Out-Patient Physical Therapy Visit Information Visit Information Visit Type Aquatic Treatment Note Visit Start Time 12:00 Visit Stop Time 12:50 Total Visit Minutes 50 Visit Number 06/15 Number of VP INFORMATION TECHNOLOGY Visits 1 PT-OP-B Current Condition Start: 06/26/19 15:28 Freq: Status: Active Protocol: Document 06/26/19 15:20 HH (Rec: 06/26/19 16:48 HH [id number]) Current Condition History of Current Condition Onset Date Deconditioning 20 yrs, LBP/ radiculopathy 3 years Current Complaints Deconditioning, LBP, occasional L LE radiculopathy History of Current Condition Pt is 43 yo female presenting to clinic with complaints of deconditioning and hx of LBP with radiculopathy. 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 Pt was diagnosed with RA and rheumatoid vasculitis in 1993 and notes that she believes this is when she started to become deconditioned. Pt's LBP and L LE radiculopathy which was worse with minimal exertion started approximately 3 years ago. She had a partial diskectomy f/b a full diskectomy approximately 1.5 year ago with minimal relief from surgeries. Pt reports the LBP and L LE pain was so severe she stayed in nursing homes multiple times and has walked with 4WW for last 3 years. Pt notes that approximately 1 year ago her LE pain was so intense she stopped walking. Pt moved in with sister in bottom floor of the house for more socal support. Approximately 6 months ago started using CBD oil with profound relief of sx , and pt has been able to stop taking gabapentin and reduce 4WW use to only in the mornings or with long distances. As pt's LBP has improved, she is interested in improving physical fitness and reports deconditioning and poor balance limits her the most. She also reports a 70 lb weight gain ~1 year ago d/t a course of high dose steroids, and has been able to lose about 35 lbs but still feels like her weight is limiting her mobility. Pt reports biggest limitations are with long distance walking or climbing more than one flight of stairs. Prior Treatments and Tests Partial f/b full diskectomy L5 -S1 in 2018. Had aquatic therapy in [place], [place] a few years ago which she felt was beneficial. Pt also currently receiving OMT for RA . Treatment Goals Patient/Caregiver Goals Lose weight, improve fitness, walk more, stop using 4WW Prior Functional Status Baseline Function- ADL's Independent Baseline Function- Mobility Independent Baseline Function- Gait Did not use AD prior to 3 years ago. Current Functional Impairments (Reported) Functional Limitations- ADL's Independent with ADLs. Functional Limitations- Mobility/Gait Independent, uses walker in mornings or for extended distances. Personal Factors Other Personal Factors That May Effect Pt is 290lbs (had 70 lb weight Therapy/Recovery gain 1 year ago and has lost about 35 lb since then). 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 PT-OP-C Subjective Start: 06/26/19 15:28 Freq: Status: Active Protocol: Document 08/11/19 12:00 CLB (Rec: 08/11/19 15:33 CLB [email or web address]) OP-PT Subjective Patient Comments Patient Comments Pt states she is doing OK today. PT-OP-D Balance Start: 06/26/19 15:28 Freq: Status: Active Protocol: Document 06/26/19 15:20 HH (Rec: 06/26/19 16:48 HH [id number]) Balance Tests Single Limb Standing Single Limb- Right 3s Single Limb- Left 4s PT-OP-E Functional Tests Start: 06/26/19 15:28 Freq: Status: Active Protocol: Document 06/26/19 15:20 HH (Rec: 06/26/19 18:40 HH [id number]) Functional Tests 6 Minute Walk Test Distance 742 Device Used 4WW Comments Pt took 1 min break from 3-4th minute PT-OP-G Mobility & Gait Start: 06/26/19 15:28 Freq: Status: Active Protocol: Document 06/26/19 15:20 HH (Rec: 06/26/19 16:48 HH [id number]) OP Mobility Evaluation Transfers Sit to Stand I but slow speed and uses UE support for pushoff. Poor descent control with stand to sit. PT-OP-H Neuro Start: 06/26/19 15:28 Freq: Status: Active Protocol: Document 06/26/19 15:20 HH (Rec: 06/26/19 16:48 [id number]) Sensation Evaluation Location Details Right Lower Extremity Light Touch Impaired Left Lower Extremity Light Touch Impaired Upper Extremity Light Touch Intact/Normal Left Little Finger Light Touch Absent Comments Summary Comments UE sensation to light touch intact except L pinky, pt reports long-term hx of neuropathic damage. LE sensation L impaired L4-S1, R impaired L5. Deep Tendon Reflex & Clonus Assessment Deep Tendon Reflex Bilateral Achilles Deep Tendon Reflex 1+ Diminished Bilateral Patellar Deep Tendon Reflex 2+ Normal Bilateral Brachioradialis Deep Tendon Reflex 2+ Normal Bilateral Tricep Deep Tendon Reflex 2+ Normal Bilateral Bicep Deep Tendon Reflex 2+ Normal Ankle Clonus Bilateral Clonus Assessment Absent Vital Signs Blood Pressure Sitting Blood Pressure (90/60-120/80 mmHg) 160/85 H Blood Pressure Source Manual Cuff Comments Vital Signs Comments After 6MWT = 182/89 H Pt's baseline = 130s/80s PT-OP-J Posture/Palpation/Skin Start: 06/26/19 15:28 Freq: Status: Active Protocol: Document 06/26/19 15:20 HH (Rec: 06/26/19 16:48 [id number]) Posture Evaluation Position Standing Evaluation View Lateral Head/C-Spine Posture Forward Head T-Spine Posture Increased Kyphosis L-Spine Posture Increased Lordosis Shoulder Posture (L) Rounded,(R) Rounded Weight Distribution Weight Shifted Right Hip Posture (L) Externally Rotated,(R) Externally Rotated Knee Posture (L) Genu Valgus,(R) Genu Valgus,(L) Genu Recurvatum,(R) Genu Recurvatum Ankle/Foot Posture (L) Pronated,(R) Pronated PT-OP-K Range of Motion Start: 06/26/19 15:28 Freq: Status: Active Protocol: Document 06/26/19 15:20 HH (Rec: 06/26/19 16:48 [id number]) Cervical Spine Range of Motion Cervical Spine Active Testing Position Sitting Comments WNL Lumbar Spine Range of Motion Lumbar Spine Active Testing Position Standing Comments Flexion fingertips to midshin, extension full range but hinging L/S Hip Goniometric Range of Motion Hip ROM Limitations Comments Excess ER, IR limited. PT-OP-L Special Tests Start: 06/26/19 15:28 Freq: Status: Active Protocol: Document 06/26/19 15:20 HH (Rec: 06/26/19 16:48 [id number]) Special Tests Other Special Tests Special Tests Babinski -ve B 6 MWT: 742 ft, 1 break (1 min long), used 4WW PT-OP-M Strength Start: 06/26/19 15:28 Freq: Status: Active Protocol: Document 06/26/19 15:20 HH (Rec: 06/26/19 16:48 [id number]) Shoulder Strength Shoulder Manual Muscle Testing bilateral Abduction (C5) 4 Good Elbow/Forearm Strength Elbow and Forearm Manual Muscle Testing bilateral Flexion (C6) 4+ Good+ Extension (C7) 4+ Good+ Wrist Strength Wrist Manual Muscle Testing bilateral Flexion (C7) 4+ Good+ Extension (C6) 4+ Good+ Hip Strength Hip Manual Muscle Testing bilateral Flexion (L2) 4- Good- Knee Strength Knee Manual Muscle Testing bilateral Flexion (S2) 4 Good Extension (L3) 4 Good Ankle/Foot Strength Ankle and Foot Manual Muscle Testing bilateral Dorsiflexion (L4) 4 Good Plantarflexion (S1) 4 Good PT-OP-Q Treatments Start: 06/26/19 15:28 Freq: Status: Active Protocol: Document 08/06/19 13:46 HH (Rec: 08/06/19 14:32 [id number]) Cardio Equipment Recumbent Stepper (Sci-Fit) Duration (Minutes) 5 Resistance 5 Other 40-50 RPM Treadmill Duration (Minutes) 4 Speed 1.2-1.4 Incline 0 Other with UE support. Pt presents increased SOB starting from 2nd min. Gym Equipment Shuttle Recovery B squats Resistance #125 lbs Shuttle Recovery Platform Stable Reps/Time 20 x3 Shuttle Rebound blue Exercise Details lateral and forward weight shift Reps/Duration 6 mins Therapeutic Exercises Supine Exercises bridging Supine Exercise Name bridging without trunk extension Equipment Used ball between knees Reps/Minutes 3 secs hold x 10 x 2 reverse curl Supine Exercise Name leg hold (hip at 90 degrees) Side bilateral Reps/Minutes 5 secs x 8 PT-OP-S Aquatic Treatment Start: 06/26/19 15:28 Freq: Status: Active Protocol: Document 08/11/19 12:00 CLB (Rec: 08/11/19 15:33 CLB [email or web address]) Aquatics Treatment Pool Entry/Exit Pool Entry/Exit Method Stairs Assistance Standby Assistance Water Walking [place] March Water Level Waist Level Level of Assistance Standby Assistance,Verbal Cues Comments difficulty with balance Marching Water Level Waist Level Level of Assistance Standby Assistance,Verbal Cues Sideways Water Level Chest Level Level of Assistance Standby Assistance,Verbal Cues Forwards Water Level Waist Level Level of Assistance Standby Assistance,Verbal Cues Lower Extremity Exercises hip CCW/CW Body Position Standing Water Level Chest Level Reps/Duration 2x15 bilat both dir Comments no hh, fast and slow hacky sac Water Level Chest Level Reps/Duration 3x15 bilateral rocking horse Water Level Chest Level Reps/Duration 2x15 each LL leading Comments cueing for low impact squats Reps/Duration 10x Comments cues for gluteal activation Lower Extremity Stretches body swing Comments on wall gastroc, soleus Body Position Standing Reps/Duration 2x30 Comments standing at wall hip-spiderman Reps/Duration 2x45 SKTC, piriformis Body Position Standing Reps/Duration 2x30 Comments at wall HS, Quads, Body Position Standing Water Level Chest Level Equipment Small Noodle Reps/Duration 2x30 Comments hh at wall Upper Extremity Exercises flex/ exst; ab/ad Body Position Standing Reps/Duration 2x12 [place] Activities [place] Activities Bicycle,Cross Country,Hip Abduction/Adduction Other Activities Deep water traction with 4# peter x 10 min Equipment white noodle Duration 8 PT-OP-T Assessment and Plan Start: 06/26/19 15:28 Freq: Status: Active Protocol: Document 08/11/19 12:00 CLB (Rec: 08/11/19 15:33 CLB [email or web address]) Physical Therapy Assessment Goals Balance Impairment Pt unable to balance single leg >5 sec Short Term Goal (STG) Pt will single leg stand >10 sec B to improve safety with activity STG Duration 6 weeks Bed Laborer Goal (LTG) Pt will single leg stand >20 sec B to improve safety with activity LTG Duration 12 weeks Activity level Impairment Pt does not participate in regular physical activity Short Term Goal (STG) Pt will complete 20 min of physical activity daily to improve physical fitness STG Duration 6 weeks Bed Laborer Goal (LTG) Pt will complete 30 min of physical activity dailty to improve physical fitness LTG Duration 12 weeks 6MWT Impairment Pt ambulated 742 ft with 1 min rest break Short Term Goal (STG) Pt will ambulate >1000 ft with <30 sec rest break during 6MWT to improve activity tolerance STG Duration 6 weeks Bed Laborer Goal (LTG) Pt will ambulate >1500 ft with <30 sec rest break during 6MWT to improve activity tolerance or 1000 ft without AD LTG Duration 12 weeks HEP Impairment Pt does not have HEP M[facility] Goal (LTG) Pt will demonstrate independence and safety with HEP to improve and maintain balance and physical fitness LTG Duration 12 weeks Assessment Summary Assessment Pt with good tolerance of theraputic aquatic exercises with cues for core activation and posture. Physical Therapy Plan Frequency and Duration Frequency of Treatment 2x/Week Duration of Treatment 12 weeks Plan of Care Start Date 06/26/19 Plan of Care End Date 09/18/19 Next Visit Focus/Plan Next Visit Plan Continue with POC for aquatic therapy.
--- NOTE | 2019-08-13 13:53 | PT.OTN ---
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 (08/13/19) Other malaise (08/13/19) Physical Therapy Treatment Note PT-OP-A Visit Information Start: 06/26/19 15:28 Freq: Status: Active Protocol: Document 08/13/19 13:02 HH (Rec: 08/13/19 13:51 [id number]) Out-Patient Physical Therapy Visit Information Visit Information Visit Type Treatment Note Visit Note SPT Ambrosio led tx session Visit Start Time 13:02 Visit Stop Time 13:44 Total Visit Minutes 42 Visit Number 07/16 Number of CHARGE OUT CLERK Visits 0 PT-OP-B Current Condition Start: 06/26/19 15:28 Freq: Status: Active Protocol: Document 06/26/19 15:20 HH (Rec: 06/26/19 16:48 [id number]) Current Condition History of Current Condition Onset Date Deconditioning 20 yrs, LBP/ radiculopathy 3 years Current Complaints Deconditioning, LBP, occasional L LE radiculopathy History of Current Condition Pt is 43 yo female presenting to clinic with complaints of deconditioning and hx of LBP with radiculopathy. 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 Pt was diagnosed with RA and rheumatoid vasculitis in 1993 and notes that she believes this is when she started to become deconditioned. Pt's LBP and L LE radiculopathy which was worse with minimal exertion started approximately 3 years ago. She had a partial diskectomy f/b a full diskectomy approximately 1.5 year ago with minimal relief from surgeries. Pt reports the LBP and L LE pain was so severe she stayed in nursing homes multiple times and has walked with 4WW for last 3 years. Pt notes that approximately 1 year ago her LE pain was so intense she stopped walking. Pt moved in with sister in bottom floor of the house for more socal support. Approximately 6 months ago started using CBD oil with profound relief of sx , and pt has been able to stop taking gabapentin and reduce 4WW use to only in the mornings or with long distances. As pt's LBP has improved, she is interested in improving physical fitness and reports deconditioning and poor balance limits her the most. She also reports a 70 lb weight gain ~1 year ago d/t a course of high dose steroids, and has been able to lose about 35 lbs but still feels like her weight is limiting her mobility. Pt reports biggest limitations are with long distance walking or climbing more than one flight of stairs. Prior Treatments and Tests Partial f/b full diskectomy L5 -S1 in 2018. Had aquatic therapy in [place], [place] a few years ago which she felt was beneficial. Pt also currently receiving OMT for RA . Treatment Goals Patient/Caregiver Goals Lose weight, improve fitness, walk more, stop using 4WW Prior Functional Status Baseline Function- ADL's Independent Baseline Function- Mobility Independent Baseline Function- Gait Did not use AD prior to 3 years ago. Current Functional Impairments (Reported) Functional Limitations- ADL's Independent with ADLs. Functional Limitations- Mobility/Gait Independent, uses walker in mornings or for extended distances. Personal Factors Other Personal Factors That May Effect Pt is 290lbs (had 70 lb weight Therapy/Recovery gain 1 year ago and has lost about 35 lb since then). 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 PT-OP-C Subjective Start: 06/26/19 15:28 Freq: Status: Active Protocol: Document 08/13/19 13:02 HH (Rec: 08/13/19 13:51 HH [id number]) OP-PT Subjective Patient Comments Patient Comments My L knee has been bothering since sunday and i do not know why. Both of my hands also feel stiff. as well. I want to take it easy today. I havent been walking much for the past week. PT-OP-D Balance Start: 06/26/19 15:28 Freq: Status: Active Protocol: Document 06/26/19 15:20 HH (Rec: 06/26/19 16:48 HH [id number]) Balance Tests Single Limb Standing Single Limb- Right 3s Single Limb- Left 4s PT-OP-E Functional Tests Start: 06/26/19 15:28 Freq: Status: Active Protocol: Document 06/26/19 15:20 HH (Rec: 06/26/19 18:40 HH [id number]) Functional Tests 6 Minute Walk Test Distance 742 Device Used 4WW Comments Pt took 1 min break from 3-4th minute PT-OP-G Mobility & Gait Start: 06/26/19 15:28 Freq: Status: Active Protocol: Document 06/26/19 15:20 HH (Rec: 06/26/19 16:48 [id number]) OP Mobility Evaluation Transfers Sit to Stand I but slow speed and uses UE support for pushoff. Poor descent control with stand to sit. PT-OP-H Neuro Start: 06/26/19 15:28 Freq: Status: Active Protocol: Document 06/26/19 15:20 HH (Rec: 06/26/19 16:48 [id number]) Sensation Evaluation Location Details Right Lower Extremity Light Touch Impaired Left Lower Extremity Light Touch Impaired Upper Extremity Light Touch Intact/Normal Left Little Finger Light Touch Absent Comments Summary Comments UE sensation to light touch intact except L pinky, pt reports long-term hx of neuropathic damage. LE sensation L impaired L4-S1, R impaired L5. Deep Tendon Reflex & Clonus Assessment Deep Tendon Reflex Bilateral Achilles Deep Tendon Reflex 1+ Diminished Bilateral Patellar Deep Tendon Reflex 2+ Normal Bilateral Brachioradialis Deep Tendon Reflex 2+ Normal Bilateral Tricep Deep Tendon Reflex 2+ Normal Bilateral Bicep Deep Tendon Reflex 2+ Normal Ankle Clonus Bilateral Clonus Assessment Absent Vital Signs Blood Pressure Sitting Blood Pressure (90/60-120/80 mmHg) 160/85 H Blood Pressure Source Manual Cuff Comments Vital Signs Comments After 6MWT = 182/89 H Pt's baseline = 130s/80s PT-OP-J Posture/Palpation/Skin Start: 06/26/19 15:28 Freq: Status: Active Protocol: Document 06/26/19 15:20 HH (Rec: 06/26/19 16:48 [id number]) Posture Evaluation Position Standing Evaluation View Lateral Head/C-Spine Posture Forward Head T-Spine Posture Increased Kyphosis L-Spine Posture Increased Lordosis Shoulder Posture (L) Rounded,(R) Rounded Weight Distribution Weight Shifted Right Hip Posture (L) Externally Rotated,(R) Externally Rotated Knee Posture (L) Genu Valgus,(R) Genu Valgus,(L) Genu Recurvatum,(R) Genu Recurvatum Ankle/Foot Posture (L) Pronated,(R) Pronated PT-OP-K Range of Motion Start: 06/26/19 15:28 Freq: Status: Active Protocol: Document 06/26/19 15:20 HH (Rec: 06/26/19 16:48 [id number]) Cervical Spine Range of Motion Cervical Spine Active Testing Position Sitting Comments WNL Lumbar Spine Range of Motion Lumbar Spine Active Testing Position Standing Comments Flexion fingertips to midshin, extension full range but hinging L/S Hip Goniometric Range of Motion Hip ROM Limitations Comments Excess ER, IR limited. PT-OP-L Special Tests Start: 06/26/19 15:28 Freq: Status: Active Protocol: Document 06/26/19 15:20 HH (Rec: 06/26/19 16:48 [id number]) Special Tests Other Special Tests Special Tests Babinski -ve B 6 MWT: 742 ft, 1 break (1 min long), used 4WW PT-OP-M Strength Start: 06/26/19 15:28 Freq: Status: Active Protocol: Document 06/26/19 15:20 HH (Rec: 06/26/19 16:48 [id number]) Shoulder Strength Shoulder Manual Muscle Testing bilateral Abduction (C5) 4 Good Elbow/Forearm Strength Elbow and Forearm Manual Muscle Testing bilateral Flexion (C6) 4+ Good+ Extension (C7) 4+ Good+ Wrist Strength Wrist Manual Muscle Testing bilateral Flexion (C7) 4+ Good+ Extension (C6) 4+ Good+ Hip Strength Hip Manual Muscle Testing bilateral Flexion (L2) 4- Good- Knee Strength Knee Manual Muscle Testing bilateral Flexion (S2) 4 Good Extension (L3) 4 Good Ankle/Foot Strength Ankle and Foot Manual Muscle Testing bilateral Dorsiflexion (L4) 4 Good Plantarflexion (S1) 4 Good PT-OP-Q Treatments Start: 06/26/19 15:28 Freq: Status: Active Protocol: Document 08/13/19 13:02 HH (Rec: 08/13/19 13:51 [id number]) Cardio Equipment Recumbent Stepper (Sci-Fit) Duration (Minutes) 7 Resistance 5 Other 40-50 RPM Gym Equipment Shuttle Recovery SL squat Resistance #62 Shuttle Recovery Platform Stable Reps/Time 10 x2 B squats Resistance #87 lbs Shuttle Recovery Platform Stable Reps/Time 20 x3 Shuttle Balance blue Reps/Duration 5 mins Comments static stance f/b weightshifting lateral and forward Therapeutic Exercises Supine Exercises unilateral knee fall out Supine Exercise Name hip abd/ER alternate Side bilateral Equipment Used level 1 band Reps/Minutes 3 sec x 8 x2 bridging Supine Exercise Name bridging without trunk extension Reps/Minutes 5 secs hold x 10 x 2 Comments push off through heels reverse curl Supine Exercise Name leg hold (hip at 90 degrees) Side bilateral Reps/Minutes 5 secs x 8 Sitting Exercises seated marching Sitting Exercise Name unsupported seated marching Side bilateral Equipment Used on green montenegrin ball Reps/Minutes 10 x2 PT-OP-S Aquatic Treatment Start: 06/26/19 15:28 Freq: Status: Active Protocol: Document 08/11/19 12:00 CLB (Rec: 08/11/19 15:33 CLB [id number]) Aquatics Treatment Pool Entry/Exit Pool Entry/Exit Method Stairs Assistance Standby Assistance Water Walking [place] March Water Level Waist Level Level of Assistance Standby Assistance,Verbal Cues Comments difficulty with balance Marching Water Level Waist Level Level of Assistance Standby Assistance,Verbal Cues Sideways Water Level Chest Level Level of Assistance Standby Assistance,Verbal Cues Forwards Water Level Waist Level Level of Assistance Standby Assistance,Verbal Cues Lower Extremity Exercises hip CCW/CW Body Position Standing Water Level Chest Level Reps/Duration 2x15 bilat both dir Comments no hh, fast and slow hacky sac Water Level Chest Level Reps/Duration 3x15 bilateral rocking horse Water Level Chest Level Reps/Duration 2x15 each LL leading Comments cueing for low impact squats Reps/Duration 10x Comments cues for gluteal activation Lower Extremity Stretches body swing Comments on wall gastroc, soleus Body Position Standing Reps/Duration 2x30 Comments standing at wall hip-spiderman Reps/Duration 2x45 SKTC, piriformis Body Position Standing Reps/Duration 2x30 Comments at wall HS, Quads, Body Position Standing Water Level Chest Level Equipment Small Noodle Reps/Duration 2x30 Comments hh at wall Upper Extremity Exercises flex/ exst; ab/ad Body Position Standing Reps/Duration 2x12 Mereta Activities Mereta Activities Bicycle,Cross Country,Hip Abduction/Adduction Other Activities Deep water traction with 4# peter x 10 min Equipment white noodle Duration 8 PT-OP-T Assessment and Plan Start: 06/26/19 15:28 Freq: Status: Active Protocol: Document 08/13/19 13:02 HH (Rec: 08/13/19 13:51 HH [id number]) Physical Therapy Assessment Goals Balance Impairment Pt unable to balance single leg >5 sec Short Term Goal (STG) Pt will single leg stand >10 sec B to improve safety with activity STG Duration 6 weeks [facility] Goal (LTG) Pt will single leg stand >20 sec B to improve safety with activity LTG Duration 12 weeks Activity level Impairment Pt does not participate in regular physical activity Short Term Goal (STG) Pt will complete 20 min of physical activity daily to improve physical fitness STG Duration 6 weeks [facility] Goal (LTG) Pt will complete 30 min of physical activity dailty to improve physical fitness LTG Duration 12 weeks 6MWT Impairment Pt ambulated 742 ft with 1 min rest break Short Term Goal (STG) Pt will ambulate >1000 ft with <30 sec rest break during 6MWT to improve activity tolerance STG Duration 6 weeks Value Stream Coach Goal (LTG) Pt will ambulate >1500 ft with <30 sec rest break during 6MWT to improve activity tolerance or 1000 ft without AD LTG Duration 12 weeks HEP Impairment Pt does not have HEP [facility] Goal (LTG) Pt will demonstrate independence and safety with HEP to improve and maintain balance and physical fitness LTG Duration 12 weeks Assessment Summary Assessment Pt has poorer tolerance and strength today d/t c/o L knee pain and residual weakness from her sickness. She also notes that she feels like she may be having an RA flair up as she has stiffness in multiple joints. Treatment focused today on active movement and gravity reduced core strengthening. Pt tolerated session well and noted feeling less stiff at end of session, but required frequent rest breaks d/t poor activity tolerance. Disc benefits of moving more throughout day to reduce stiffness and improve activity tolerance. Physical Therapy Plan Next Visit Focus/Plan Next Note Type Treatment Note Next Visit Plan Assess short term goals next session Cont to progress cardio exercise, balance activities, LE strengthening, core stabilization Progress treadmill walking program
--- NOTE | 2019-08-18 13:32 | PT.OTN ---
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 (08/13/19) Other malaise (08/13/19) Physical Therapy Treatment Note PT-OP-A Visit Information Start: 06/26/19 15:28 Freq: Status: Active Protocol: Document 08/18/19 13:20 SAK (Rec: 08/18/19 13:32 SAK [id number]) Out-Patient Physical Therapy Visit Information Visit Information Visit Type Treatment Note Visit Start Time 11:45 Visit Stop Time 12:30 Total Visit Minutes 47 Visit Number 08/15 PT-OP-B Current Condition Start: 06/26/19 15:28 Freq: Status: Active Protocol: Document 06/26/19 15:20 HH (Rec: 06/26/19 16:48 HH [id number]) Current Condition History of Current Condition Onset Date Deconditioning 20 yrs, LBP/ radiculopathy 3 years Current Complaints Deconditioning, LBP, occasional L LE radiculopathy History of Current Condition Pt is 43 yo female presenting to clinic with complaints of deconditioning and hx of LBP with radiculopathy. 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 Pt was diagnosed with RA and rheumatoid vasculitis in 1993 and notes that she believes this is when she started to become deconditioned. Pt's LBP and L LE radiculopathy which was worse with minimal exertion started approximately 3 years ago. She had a partial diskectomy f/b a full diskectomy approximately 1.5 year ago with minimal relief from surgeries. Pt reports the LBP and L LE pain was so severe she stayed in nursing homes multiple times and has walked with 4WW for last 3 years. Pt notes that approximately 1 year ago her LE pain was so intense she stopped walking. Pt moved in with sister in bottom floor of the house for more socal support. Approximately 6 months ago started using CBD oil with profound relief of sx , and pt has been able to stop taking gabapentin and reduce 4WW use to only in the mornings or with long distances. As pt's LBP has improved, she is interested in improving physical fitness and reports deconditioning and poor balance limits her the most. She also reports a 70 lb weight gain ~1 year ago d/t a course of high dose steroids, and has been able to lose about 35 lbs but still feels like her weight is limiting her mobility. Pt reports biggest limitations are with long distance walking or climbing more than one flight of stairs. Prior Treatments and Tests Partial f/b full diskectomy L5 -S1 in 2018. Had aquatic therapy in [place], [place] a few years ago which she felt was beneficial. Pt also currently receiving OMT for RA . Treatment Goals Patient/Caregiver Goals Lose weight, improve fitness, walk more, stop using 4WW Prior Functional Status Baseline Function- ADL's Independent Baseline Function- Mobility Independent Baseline Function- Gait Did not use AD prior to 3 years ago. Current Functional Impairments (Reported) Functional Limitations- ADL's Independent with ADLs. Functional Limitations- Mobility/Gait Independent, uses walker in mornings or for extended distances. Personal Factors Other Personal Factors That May Effect Pt is 290lbs (had 70 lb weight Therapy/Recovery gain 1 year ago and has lost about 35 lb since then). 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 PT-OP-C Subjective Start: 06/26/19 15:28 Freq: Status: Active Protocol: Document 08/18/19 13:20 SAK (Rec: 08/18/19 13:32 SAK [id number]) OP-PT Subjective Patient Comments Patient Comments No new c/o, is walking more without walker at home. Went to store briefly and tolerated ok. States her goal is to eventually go to the pool to do aquatic exercises 3x/wk. PT-OP-D Balance Start: 06/26/19 15:28 Freq: Status: Active Protocol: Document 06/26/19 15:20 HH (Rec: 06/26/19 16:48 HH [id number]) Balance Tests Single Limb Standing Single Limb- Right 3s Single Limb- Left 4s PT-OP-E Functional Tests Start: 06/26/19 15:28 Freq: Status: Active Protocol: Document 06/26/19 15:20 HH (Rec: 06/26/19 18:40 HH [id number]) Functional Tests 6 Minute Walk Test Distance 742 Device Used 4WW Comments Pt took 1 min break from 3-4th minute PT-OP-G Mobility & Gait Start: 06/26/19 15:28 Freq: Status: Active Protocol: Document 06/26/19 15:20 HH (Rec: 06/26/19 16:48 [id number]) OP Mobility Evaluation Transfers Sit to Stand I but slow speed and uses UE support for pushoff. Poor descent control with stand to sit. PT-OP-H Neuro Start: 06/26/19 15:28 Freq: Status: Active Protocol: Document 06/26/19 15:20 HH (Rec: 06/26/19 16:48 [id number]) Sensation Evaluation Location Details Right Lower Extremity Light Touch Impaired Left Lower Extremity Light Touch Impaired Upper Extremity Light Touch Intact/Normal Left Little Finger Light Touch Absent Comments Summary Comments UE sensation to light touch intact except L pinky, pt reports long-term hx of neuropathic damage. LE sensation L impaired L4-S1, R impaired L5. Deep Tendon Reflex & Clonus Assessment Deep Tendon Reflex Bilateral Achilles Deep Tendon Reflex 1+ Diminished Bilateral Patellar Deep Tendon Reflex 2+ Normal Bilateral Brachioradialis Deep Tendon Reflex 2+ Normal Bilateral Tricep Deep Tendon Reflex 2+ Normal Bilateral Bicep Deep Tendon Reflex 2+ Normal Ankle Clonus Bilateral Clonus Assessment Absent Vital Signs Blood Pressure Sitting Blood Pressure (90/60-120/80 mmHg) 160/85 H Blood Pressure Source Manual Cuff Comments Vital Signs Comments After 6MWT = 182/89 H Pt's baseline = 130s/80s PT-OP-J Posture/Palpation/Skin Start: 06/26/19 15:28 Freq: Status: Active Protocol: Document 06/26/19 15:20 HH (Rec: 06/26/19 16:48 [id number]) Posture Evaluation Position Standing Evaluation View Lateral Head/C-Spine Posture Forward Head T-Spine Posture Increased Kyphosis L-Spine Posture Increased Lordosis Shoulder Posture (L) Rounded,(R) Rounded Weight Distribution Weight Shifted Right Hip Posture (L) Externally Rotated,(R) Externally Rotated Knee Posture (L) Genu Valgus,(R) Genu Valgus,(L) Genu Recurvatum,(R) Genu Recurvatum Ankle/Foot Posture (L) Pronated,(R) Pronated PT-OP-K Range of Motion Start: 06/26/19 15:28 Freq: Status: Active Protocol: Document 06/26/19 15:20 HH (Rec: 06/26/19 16:48 [id number]) Cervical Spine Range of Motion Cervical Spine Active Testing Position Sitting Comments WNL Lumbar Spine Range of Motion Lumbar Spine Active Testing Position Standing Comments Flexion fingertips to midshin, extension full range but hinging L/S Hip Goniometric Range of Motion Hip ROM Limitations Comments Excess ER, IR limited. PT-OP-L Special Tests Start: 06/26/19 15:28 Freq: Status: Active Protocol: Document 06/26/19 15:20 (Rec: 06/26/19 16:48 [id number]) Special Tests Other Special Tests Special Tests Babinski -ve B 6 MWT: 742 ft, 1 break (1 min long), used 4WW PT-OP-M Strength Start: 06/26/19 15:28 Freq: Status: Active Protocol: Document 06/26/19 15:20 HH (Rec: 06/26/19 16:48 [id number]) Shoulder Strength Shoulder Manual Muscle Testing bilateral Abduction (C5) 4 Good Elbow/Forearm Strength Elbow and Forearm Manual Muscle Testing bilateral Flexion (C6) 4+ Good+ Extension (C7) 4+ Good+ Wrist Strength Wrist Manual Muscle Testing bilateral Flexion (C7) 4+ Good+ Extension (C6) 4+ Good+ Hip Strength Hip Manual Muscle Testing bilateral Flexion (L2) 4- Good- Knee Strength Knee Manual Muscle Testing bilateral Flexion (S2) 4 Good Extension (L3) 4 Good Ankle/Foot Strength Ankle and Foot Manual Muscle Testing bilateral Dorsiflexion (L4) 4 Good Plantarflexion (S1) 4 Good PT-OP-Q Treatments Start: 06/26/19 15:28 Freq: Status: Active Protocol: Document 08/13/19 13:02 (Rec: 08/13/19 13:51 [id number]) Cardio Equipment Recumbent Stepper (Sci-Fit) Duration (Minutes) 7 Resistance 5 Other 40-50 RPM Gym Equipment Shuttle Recovery SL squat Resistance #62 Shuttle Recovery Platform Stable Reps/Time 10 x2 B squats Resistance #87 lbs Shuttle Recovery Platform Stable Reps/Time 20 x3 Shuttle Balance blue Reps/Duration 5 mins Comments static stance f/b weightshifting lateral and forward Therapeutic Exercises Supine Exercises unilateral knee fall out Supine Exercise Name hip abd/ER alternate Side bilateral Equipment Used level 1 band Reps/Minutes 3 sec x 8 x2 bridging Supine Exercise Name bridging without trunk extension Reps/Minutes 5 secs hold x 10 x 2 Comments push off through heels reverse curl Supine Exercise Name leg hold (hip at 90 degrees) Side bilateral Reps/Minutes 5 secs x 8 Sitting Exercises seated marching Sitting Exercise Name unsupported seated marching Side bilateral Equipment Used on [place] ball Reps/Minutes 10 x2 PT-OP-S Aquatic Treatment Start: 06/26/19 15:28 Freq: Status: Active Protocol: Document 08/18/19 13:20 [facility] (Rec: 08/18/19 13:32 [facility] [id number]) Aquatics Treatment Pool Entry/Exit Pool Entry/Exit Method Stairs Assistance Standby Assistance Water Walking [place] October Water Level Waist Level Walking Equipment Resistance Fins Level of Assistance Standby Assistance,Verbal Cues Water Level Waist Level Walking Equipment Resistance Fins Level of Assistance Standby Assistance,Verbal Cues Sideways Water Level Chest Level Walking Equipment Resistance Fins Level of Assistance Standby Assistance,Verbal Cues Forwards Water Level Waist Level Walking Equipment Resistance Fins Level of Assistance Standby Assistance,Verbal Cues Lower Extremity Exercises hip ab/ad Equipment Resistance Fins Reps/Duration 15x hip flex/ext Equipment Resistance Fins Reps/Duration 15x hip CCW/CW Body Position Standing Water Level Chest Level Reps/Duration 2x15 bilat both dir Comments no hh, fast and slow squats Reps/Duration 10x Comments cues for gluteal activation Lower Extremity Stretches gastroc, soleus Body Position Standing Reps/Duration 2x30 Comments standing at wall hip-spiderman Reps/Duration 2x45 SKTC, piriformis Body Position Standing Reps/Duration 2x30 Comments at wall HS, Quads, Body Position Standing Water Level Chest Level Equipment Small Noodle, large noodle Reps/Duration 2x30 Comments hh at wall [place] Activities [place] Activities Bicycle,Cross Country,Running Other Activities Deep water traction with 4# peter x 10 min Equipment white noodle Duration 10 PT-OP-T Assessment and Plan Start: 06/26/19 15:28 Freq: Status: Active Protocol: Document 08/18/19 13:20 [facility] (Rec: 08/18/19 13:32 [facility] [id number]) Physical Therapy Assessment Goals Balance Impairment Pt unable to balance single leg >5 sec Short Term Goal (STG) Pt will single leg stand >10 sec B to improve safety with activity STG Duration 6 weeks Jail Goal (LTG) Pt will single leg stand >20 sec B to improve safety with activity LTG Duration 12 weeks Activity level Impairment Pt does not participate in regular physical activity Short Term Goal (STG) Pt will complete 20 min of physical activity daily to improve physical fitness STG Duration 6 weeks Jail Goal (LTG) Pt will complete 30 min of physical activity dailty to improve physical fitness LTG Duration 12 weeks 6MWT Impairment Pt ambulated 742 ft with 1 min rest break Short Term Goal (STG) Pt will ambulate >1000 ft with <30 sec rest break during 6MWT to improve activity tolerance STG Duration 6 weeks Jail Goal (LTG) Pt will ambulate >1500 ft with <30 sec rest break during 6MWT to improve activity tolerance or 1000 ft without AD LTG Duration 12 weeks HEP Impairment Pt does not have 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 Physical Therapy Plan Frequency and Duration Frequency of Treatment 2x/Week Duration of Treatment 12 weeks Plan of Care Start Date 06/26/19 Plan of Care End Date 09/18/19 Next Visit Focus/Plan Next Note Type Treatment Note Next Visit Plan Assess short term goals next session (unable to do objective measures in pool today) Cont to progress cardio exercise, balance activities, LE strengthening, core stabilization; land and aquatic-basesd Progress treadmill walking program
--- NOTE | 2019-08-21 13:45 | PT.OTN ---
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 (08/21/19) Other malaise (08/21/19) Physical Therapy Treatment Note PT-OP-A Visit Information Start: 06/26/19 15:28 Freq: Status: Active Protocol: Document 08/18/19 13:20 SAK (Rec: 08/18/19 13:32 SAK [id number]) Out-Patient Physical Therapy Visit Information Visit Information Visit Type Treatment Note Visit Start Time 11:45 Visit Stop Time 12:30 Total Visit Minutes 47 Visit Number 08/15 PT-OP-B Current Condition Start: 06/26/19 15:28 Freq: Status: Active Protocol: Document 06/26/19 15:20 HH (Rec: 06/26/19 16:48 HH [id number]) Current Condition History of Current Condition Onset Date Deconditioning 20 yrs, LBP/ radiculopathy 3 years Current Complaints Deconditioning, LBP, occasional L LE radiculopathy History of Current Condition Pt is 43 yo female presenting to clinic with complaints of deconditioning and hx of LBP with radiculopathy. 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 Pt was diagnosed with RA and rheumatoid vasculitis in 1993 and notes that she believes this is when she started to become deconditioned. Pt's LBP and L LE radiculopathy which was worse with minimal exertion started approximately 3 years ago. She had a partial diskectomy f/b a full diskectomy approximately 1.5 year ago with minimal relief from surgeries. Pt reports the LBP and L LE pain was so severe she stayed in nursing homes multiple times and has walked with 4WW for last 3 years. Pt notes that approximately 1 year ago her LE pain was so intense she stopped walking. Pt moved in with sister in bottom floor of the house for more socal support. Approximately 6 months ago started using CBD oil with profound relief of sx , and pt has been able to stop taking gabapentin and reduce 4WW use to only in the mornings or with long distances. As pt's LBP has improved, she is interested in improving physical fitness and reports deconditioning and poor balance limits her the most. She also reports a 70 lb weight gain ~1 year ago d/t a course of high dose steroids, and has been able to lose about 35 lbs but still feels like her weight is limiting her mobility. Pt reports biggest limitations are with long distance walking or climbing more than one flight of stairs. Prior Treatments and Tests Partial f/b full diskectomy L5 -S1 in 2018. Had aquatic therapy in [place], [place] a few years ago which she felt was beneficial. Pt also currently receiving OMT for RA . Treatment Goals Patient/Caregiver Goals Lose weight, improve fitness, walk more, stop using 4WW Prior Functional Status Baseline Function- ADL's Independent Baseline Function- Mobility Independent Baseline Function- Gait Did not use AD prior to 3 years ago. Current Functional Impairments (Reported) Functional Limitations- ADL's Independent with ADLs. Functional Limitations- Mobility/Gait Independent, uses walker in mornings or for extended distances. Personal Factors Other Personal Factors That May Effect Pt is 290lbs (had 70 lb weight Therapy/Recovery gain 1 year ago and has lost about 35 lb since then). 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 PT-OP-C Subjective Start: 06/26/19 15:28 Freq: Status: Active Protocol: Document 08/21/19 13:01 HH (Rec: 08/21/19 13:45 [id number]) OP-PT Subjective Patient Comments Patient Comments I havent been using my walker lately except going to the pool. I feel pretty good for my back and knees overall. I do feel stiff sometimes. Patient Reported Progress Improving PT-OP-D Balance Start: 06/26/19 15:28 Freq: Status: Active Protocol: Document 06/26/19 15:20 HH (Rec: 06/26/19 16:48 [id number]) Balance Tests Single Limb Standing Single Limb- Right 3s Single Limb- Left 4s PT-OP-E Functional Tests Start: 06/26/19 15:28 Freq: Status: Active Protocol: Document 06/26/19 15:20 HH (Rec: 06/26/19 18:40 [id number]) Functional Tests 6 Minute Walk Test Distance 742 Device Used 4WW Comments Pt took 1 min break from 3-4th minute PT-OP-G Mobility & Gait Start: 06/26/19 15:28 Freq: Status: Active Protocol: Document 06/26/19 15:20 HH (Rec: 06/26/19 16:48 [id number]) OP Mobility Evaluation Transfers Sit to Stand I but slow speed and uses UE support for pushoff. Poor descent control with stand to sit. PT-OP-H Neuro Start: 06/26/19 15:28 Freq: Status: Active Protocol: Document 06/26/19 15:20 HH (Rec: 06/26/19 16:48 [id number]) Sensation Evaluation Location Details Right Lower Extremity Light Touch Impaired Left Lower Extremity Light Touch Impaired Upper Extremity Light Touch Intact/Normal Left Little Finger Light Touch Absent Comments Summary Comments UE sensation to light touch intact except L pinky, pt reports long-term hx of neuropathic damage. LE sensation L impaired L4-S1, R impaired L5. Deep Tendon Reflex & Clonus Assessment Deep Tendon Reflex Bilateral Achilles Deep Tendon Reflex 1+ Diminished Bilateral Patellar Deep Tendon Reflex 2+ Normal Bilateral Brachioradialis Deep Tendon Reflex 2+ Normal Bilateral Tricep Deep Tendon Reflex 2+ Normal Bilateral Bicep Deep Tendon Reflex 2+ Normal Ankle Clonus Bilateral Clonus Assessment Absent Vital Signs Blood Pressure Sitting Blood Pressure (90/60-120/80 mmHg) 160/85 H Blood Pressure Source Manual Cuff Comments Vital Signs Comments After 6MWT = 182/89 H Pt's baseline = 130s/80s PT-OP-J Posture/Palpation/Skin Start: 06/26/19 15:28 Freq: Status: Active Protocol: Document 06/26/19 15:20 HH (Rec: 06/26/19 16:48 [id number]) Posture Evaluation Position Standing Evaluation View Lateral Head/C-Spine Posture Forward Head T-Spine Posture Increased Kyphosis L-Spine Posture Increased Lordosis Shoulder Posture (L) Rounded,(R) Rounded Weight Distribution Weight Shifted Right Hip Posture (L) Externally Rotated,(R) Externally Rotated Knee Posture (L) Genu Valgus,(R) Genu Valgus,(L) Genu Recurvatum,(R) Genu Recurvatum Ankle/Foot Posture (L) Pronated,(R) Pronated PT-OP-K Range of Motion Start: 06/26/19 15:28 Freq: Status: Active Protocol: Document 06/26/19 15:20 HH (Rec: 06/26/19 16:48 [id number]) Cervical Spine Range of Motion Cervical Spine Active Testing Position Sitting Comments WNL Lumbar Spine Range of Motion Lumbar Spine Active Testing Position Standing Comments Flexion fingertips to midshin, extension full range but hinging L/S Hip Goniometric Range of Motion Hip ROM Limitations Comments Excess ER, IR limited. PT-OP-L Special Tests Start: 06/26/19 15:28 Freq: Status: Active Protocol: Document 06/26/19 15:20 (Rec: 06/26/19 16:48 [id number]) Special Tests Other Special Tests Special Tests Babinski -ve B 6 MWT: 742 ft, 1 break (1 min long), used 4WW PT-OP-M Strength Start: 06/26/19 15:28 Freq: Status: Active Protocol: Document 06/26/19 15:20 (Rec: 06/26/19 16:48 [id number]) Shoulder Strength Shoulder Manual Muscle Testing bilateral Abduction (C5) 4 Good Elbow/Forearm Strength Elbow and Forearm Manual Muscle Testing bilateral Flexion (C6) 4+ Good+ Extension (C7) 4+ Good+ Wrist Strength Wrist Manual Muscle Testing bilateral Flexion (C7) 4+ Good+ Extension (C6) 4+ Good+ Hip Strength Hip Manual Muscle Testing bilateral Flexion (L2) 4- Good- Knee Strength Knee Manual Muscle Testing bilateral Flexion (S2) 4 Good Extension (L3) 4 Good Ankle/Foot Strength Ankle and Foot Manual Muscle Testing bilateral Dorsiflexion (L4) 4 Good Plantarflexion (S1) 4 Good PT-OP-Q Treatments Start: 06/26/19 15:28 Freq: Status: Active Protocol: Document 08/21/19 13:01 (Rec: 08/21/19 13:45 [id number]) Cardio Equipment Recumbent Stepper (Sci-Fit) Duration (Minutes) 8 Resistance 5 Other 50 RPM Treadmill Duration (Minutes) 5 Speed 1.2-1.4 Incline 0 Other f/b 2min rest break Gym Equipment Shuttle Recovery calf raise Resistance #75 Shuttle Recovery Platform Stable Reps/Time 15 x2 SL squat Resistance #75 Shuttle Recovery Platform Stable Reps/Time 8 x 2 B squats Resistance #75-#125 Shuttle Recovery Platform Stable Reps/Time 20x 3 Neuro Re-Education Treatment Balance Activities single leg stance Details marching in place Surface ground level Equipment next to support Reps/Duration 6 mins Comments 3 secs hold narrow stance Details staggered stance Surface ground level Equipment next to support Reps/Duration 4 mins Comments with small perturbation PT-OP-S Aquatic Treatment Start: 06/26/19 15:28 Freq: Status: Active Protocol: Document 08/18/19 13:20 SAK (Rec: 08/18/19 13:32 SAK [id number]) Aquatics Treatment Pool Entry/Exit Pool Entry/Exit Method Stairs Assistance Standby Assistance Water Walking [place] March Water Level Waist Level Walking Equipment Resistance Fins Level of Assistance Standby Assistance,Verbal Cues Marching Water Level Waist Level Walking Equipment Resistance Fins Level of Assistance Standby Assistance,Verbal Cues Sideways Water Level Chest Level Walking Equipment Resistance Fins Level of Assistance Standby Assistance,Verbal Cues Forwards Water Level Waist Level Walking Equipment Resistance Fins Level of Assistance Standby Assistance,Verbal Cues Lower Extremity Exercises hip ab/ad Equipment Resistance Fins Reps/Duration 15x hip flex/ext Equipment Resistance Fins Reps/Duration 15x hip CCW/CW Body Position Standing Water Level Chest Level Reps/Duration 2x15 bilat both dir Comments no hh, fast and slow squats Reps/Duration 10x Comments cues for gluteal activation Lower Extremity Stretches gastroc, soleus Body Position Standing Reps/Duration 2x30 Comments standing at wall hip-spiderman Reps/Duration 2x45 SKTC, piriformis Body Position Standing Reps/Duration 2x30 Comments at wall HS, Quads, Body Position Standing Water Level Chest Level Equipment Small Noodle, large noodle Reps/Duration 2x30 Comments hh at wall Oblong Activities Oblong Activities Bicycle,Cross Country,Running Other Activities Deep water traction with 4# peter x 10 min Equipment white noodle Duration 10 PT-OP-T Assessment and Plan Start: 06/26/19 15:28 Freq: Status: Active Protocol: Document 08/21/19 13:01 HH (Rec: 08/21/19 13:45 HH [id number]) Physical Therapy Assessment Goals Balance Impairment Pt unable to balance single leg >5 sec Short Term Goal (STG) Pt will single leg stand >10 sec B to improve safety with activity STG Duration 6 weeks Group Leader Wafer Polishing Goal (LTG) Pt will single leg stand >20 sec B to improve safety with activity LTG Duration 12 weeks Activity level Impairment Pt does not participate in regular physical activity Short Term Goal (STG) Pt will complete 20 min of physical activity daily to improve physical fitness STG Duration 6 weeks Group Leader Wa[employer] Polishing Goal (LTG) Pt will complete 30 min of physical activity dailty to improve physical fitness LTG Duration 12 weeks 6MWT Impairment Pt ambulated 742 ft with 1 min rest break Short Term Goal (STG) Pt will ambulate >1000 ft with <30 sec rest break during 6MWT to improve activity tolerance STG Duration 6 weeks [facility] Goal (LTG) Pt will ambulate >1500 ft with <30 sec rest break during 6MWT to improve activity tolerance or 1000 ft without AD LTG Duration 12 weeks HEP Impairment Pt does not have HEP Group Leader Wafer Polishing Goal (LTG) Pt will demonstrate independence and safety with HEP to improve and maintain balance and physical fitness LTG Duration 12 weeks Assessment Summary Assessment Pt has increased maxx to ex. Able to complete 5mins of treadmill walking f/b 2 min rest break. Pt overall demonstrates improved balance and strength, along with improved mobility without 4WW. Physical Therapy Plan Next Visit Focus/Plan Next Note Type Treatment Note Next Visit Plan Assess short term goals next session (unable to do objective measures in pool today) reassess goals next visit Cont to progress cardio exercise, balance activities, LE strengthening, core stabilization; land and aquatic-basesd Progress treadmill walking program
--- NOTE | 2019-08-25 17:19 | PT.OTN ---
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 (08/25/19) Other malaise (08/25/19) Physical Therapy Treatment Note PT-OP-A Visit Information Start: 06/26/19 15:28 Freq: Status: Active Protocol: Document 08/25/19 17:15 SAK (Rec: 08/25/19 17:19 SAK [id number]) Out-Patient Physical Therapy Visit Information Visit Information Visit Type Aquatic Treatment Note Visit Start Time 11:45 Visit Stop Time 12:33 Total Visit Minutes 48 Visit Number 1420 Number of WHEEL WORKER Visits 0 PT-OP-B Current Condition Start: 06/26/19 15:28 Freq: Status: Active Protocol: Document 06/26/19 15:20 HH (Rec: 06/26/19 16:48 HH [id number]) Current Condition History of Current Condition Onset Date Deconditioning 20 yrs, LBP/ radiculopathy 3 years Current Complaints Deconditioning, LBP, occasional L LE radiculopathy History of Current Condition Pt is 43 yo female presenting to clinic with complaints of deconditioning and hx of LBP with radiculopathy. 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 Pt was diagnosed with RA and rheumatoid vasculitis in 1993 and notes that she believes this is when she started to become deconditioned. Pt's LBP and L LE radiculopathy which was worse with minimal exertion started approximately 3 years ago. She had a partial diskectomy f/b a full diskectomy approximately 1.5 year ago with minimal relief from surgeries. Pt reports the LBP and L LE pain was so severe she stayed in nursing homes multiple times and has walked with 4WW for last 3 years. Pt notes that approximately 1 year ago her LE pain was so intense she stopped walking. Pt moved in with sister in bottom floor of the house for more socal support. Approximately 6 months ago started using CBD oil with profound relief of sx , and pt has been able to stop taking gabapentin and reduce 4WW use to only in the mornings or with long distances. As pt's LBP has improved, she is interested in improving physical fitness and reports deconditioning and poor balance limits her the most. She also reports a 70 lb weight gain ~1 year ago d/t a course of high dose steroids, and has been able to lose about 35 lbs but still feels like her weight is limiting her mobility. Pt reports biggest limitations are with long distance walking or climbing more than one flight of stairs. Prior Treatments and Tests Partial f/b full diskectomy L5 -S1 in 2018. Had aquatic therapy in [place], [place] a few years ago which she felt was beneficial. Pt also currently receiving OMT for RA . Treatment Goals Patient/Caregiver Goals Lose weight, improve fitness, walk more, stop using 4WW Prior Functional Status Baseline Function- ADL's Independent Baseline Function- Mobility Independent Baseline Function- Gait Did not use AD prior to 3 years ago. Current Functional Impairments (Reported) Functional Limitations- ADL's Independent with ADLs. Functional Limitations- Mobility/Gait Independent, uses walker in mornings or for extended distances. Personal Factors Other Personal Factors That May Effect Pt is 290lbs (had 70 lb weight Therapy/Recovery gain 1 year ago and has lost about 35 lb since then). 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 PT-OP-C Subjective Start: 06/26/19 15:28 Freq: Status: Active Protocol: Document 08/25/19 17:15 SAK (Rec: 08/25/19 17:19 SAK [id number]) OP-PT Subjective Patient Comments Patient Comments Feeling improved tolerance for activity. Working with counselor and psychiatrist on strategies for getting out of the house more easily due to her depression and anxiety. Patient Reported Progress Improving PT-OP-D Balance Start: 06/26/19 15:28 Freq: Status: Active Protocol: Document 06/26/19 15:20 (Rec: 06/26/19 16:48 HH [id number]) Balance Tests Single Limb Standing Single Limb- Right 3s Single Limb- Left 4s PT-OP-E Functional Tests Start: 06/26/19 15:28 Freq: Status: Active Protocol: Document 06/26/19 15:20 HH (Rec: 06/26/19 18:40 HH [id number]) Functional Tests 6 Minute Walk Test Distance 742 Device Used 4WW Comments Pt took 1 min break from 3-4th minute PT-OP-G Mobility & Gait Start: 06/26/19 15:28 Freq: Status: Active Protocol: Document 06/26/19 15:20 HH (Rec: 06/26/19 16:48 [id number]) OP Mobility Evaluation Transfers Sit to Stand I but slow speed and uses UE support for pushoff. Poor descent control with stand to sit. PT-OP-H Neuro Start: 06/26/19 15:28 Freq: Status: Active Protocol: Document 06/26/19 15:20 HH (Rec: 06/26/19 16:48 [id number]) Sensation Evaluation Location Details Right Lower Extremity Light Touch Impaired Left Lower Extremity Light Touch Impaired Upper Extremity Light Touch Intact/Normal Left Little Finger Light Touch Absent Comments Summary Comments UE sensation to light touch intact except L pinky, pt reports long-term hx of neuropathic damage. LE sensation L impaired L4-S1, R impaired L5. Deep Tendon Reflex & Clonus Assessment Deep Tendon Reflex Bilateral Achilles Deep Tendon Reflex 1+ Diminished Bilateral Patellar Deep Tendon Reflex 2+ Normal Bilateral Brachioradialis Deep Tendon Reflex 2+ Normal Bilateral Tricep Deep Tendon Reflex 2+ Normal Bilateral Bicep Deep Tendon Reflex 2+ Normal Ankle Clonus Bilateral Clonus Assessment Absent Vital Signs Blood Pressure Sitting Blood Pressure (90/60-120/80 mmHg) 160/85 H Blood Pressure Source Manual Cuff Comments Vital Signs Comments After 6MWT = 182/89 H Pt's baseline = 130s/80s PT-OP-J Posture/Palpation/Skin Start: 06/26/19 15:28 Freq: Status: Active Protocol: Document 06/26/19 15:20 HH (Rec: 06/26/19 16:48 [id number]) Posture Evaluation Position Standing Evaluation View Lateral Head/C-Spine Posture Forward Head T-Spine Posture Increased Kyphosis L-Spine Posture Increased Lordosis Shoulder Posture (L) Rounded,(R) Rounded Weight Distribution Weight Shifted Right Hip Posture (L) Externally Rotated,(R) Externally Rotated Knee Posture (L) Genu Valgus,(R) Genu Valgus,(L) Genu Recurvatum,(R) Genu Recurvatum Ankle/Foot Posture (L) Pronated,(R) Pronated PT-OP-K Range of Motion Start: 06/26/19 15:28 Freq: Status: Active Protocol: Document 06/26/19 15:20 HH (Rec: 06/26/19 16:48 [id number]) Cervical Spine Range of Motion Cervical Spine Active Testing Position Sitting Comments WNL Lumbar Spine Range of Motion Lumbar Spine Active Testing Position Standing Comments Flexion fingertips to midshin, extension full range but hinging L/S Hip Goniometric Range of Motion Hip ROM Limitations Comments Excess ER, IR limited. PT-OP-L Special Tests Start: 06/26/19 15:28 Freq: Status: Active Protocol: Document 06/26/19 15:20 (Rec: 06/26/19 16:48 [id number]) Special Tests Other Special Tests Special Tests Babinski -ve B 6 MWT: 742 ft, 1 break (1 min long), used 4WW PT-OP-M Strength Start: 06/26/19 15:28 Freq: Status: Active Protocol: Document 06/26/19 15:20 (Rec: 06/26/19 16:48 [id number]) Shoulder Strength Shoulder Manual Muscle Testing bilateral Abduction (C5) 4 Good Elbow/Forearm Strength Elbow and Forearm Manual Muscle Testing bilateral Flexion (C6) 4+ Good+ Extension (C7) 4+ Good+ Wrist Strength Wrist Manual Muscle Testing bilateral Flexion (C7) 4+ Good+ Extension (C6) 4+ Good+ Hip Strength Hip Manual Muscle Testing bilateral Flexion (L2) 4- Good- Knee Strength Knee Manual Muscle Testing bilateral Flexion (S2) 4 Good Extension (L3) 4 Good Ankle/Foot Strength Ankle and Foot Manual Muscle Testing bilateral Dorsiflexion (L4) 4 Good Plantarflexion (S1) 4 Good PT-OP-Q Treatments Start: 06/26/19 15:28 Freq: Status: Active Protocol: Document 08/21/19 13:01 (Rec: 08/21/19 13:45 [id number]) Cardio Equipment Recumbent Stepper (Sci-Fit) Duration (Minutes) 8 Resistance 5 Other 50 RPM Treadmill Duration (Minutes) 5 Speed 1.2-1.4 Incline 0 Other f/b 2min rest break Gym Equipment Shuttle Recovery calf raise Resistance #75 Shuttle Recovery Platform Stable Reps/Time 15 x2 SL squat Resistance #75 Shuttle Recovery Platform Stable Reps/Time 8 x 2 B squats Resistance #75-#125 Shuttle Recovery Platform Stable Reps/Time 20x 3 Neuro Re-Education Treatment Balance Activities single leg stance Details marching in place Surface ground level Equipment next to support Reps/Duration 6 mins Comments 3 secs hold narrow stance Details staggered stance Surface ground level Equipment next to support Reps/Duration 4 mins Comments with small perturbation PT-OP-S Aquatic Treatment Start: 06/26/19 15:28 Freq: Status: Active Protocol: Document 08/25/19 17:15 [facility] (Rec: 08/25/19 17:19 [facility] [id number]) Aquatics Treatment Pool Entry/Exit Pool Entry/Exit Method Stairs Assistance Standby Assistance Water Walking White March Water Level Waist Level Walking Equipment Resistance Fins Level of Assistance Standby Assistance,Verbal Cues Marching Water Level Waist Level Walking Equipment Resistance Fins Level of Assistance Standby Assistance,Verbal Cues Sideways Water Level Chest Level Walking Equipment Resistance Fins Level of Assistance Standby Assistance,Verbal Cues Forwards Water Level Waist Level Walking Equipment Resistance Fins Level of Assistance Standby Assistance,Verbal Cues Lower Extremity Exercises hip ab/ad Equipment Resistance Fins Reps/Duration 15x hip flex/ext Equipment Resistance Fins Reps/Duration 15x hip CCW/CW Body Position Standing Water Level Chest Level Reps/Duration 2x15 bilat both dir Comments no hh, fast and slow squats Reps/Duration 10x Comments cues for gluteal activation Lower Extremity Stretches gastroc, soleus Body Position Standing Reps/Duration 2x30 Comments standing at wall hip-spiderman Reps/Duration 2x45 SKTC, piriformis Body Position Standing Reps/Duration 2x30 Comments at wall HS, Quads, Body Position Standing Water Level Chest Level Equipment Small Noodle, large noodle Reps/Duration 2x30 Comments hh at wall [place] Activities [place] Activities Bicycle,Bicycle Backwards, Cross Country,Running Equipment white noodle Duration 10 PT-OP-T Assessment and Plan Start: 06/26/19 15:28 Freq: Status: Active Protocol: Document 08/25/19 17:15 [facility] (Rec: 08/25/19 17:19 [facility] [id number]) Physical Therapy Assessment Goals Balance Impairment Pt unable to balance single leg >5 sec Short Term Goal (STG) Pt will single leg stand >10 sec B to improve safety with activity STG Duration 6 weeks Senior Living Goal (LTG) Pt will single leg stand >20 sec B to improve safety with activity LTG Duration 12 weeks Activity level Impairment Pt does not participate in regular physical activity Short Term Goal (STG) Pt will complete 20 min of physical activity daily to improve physical fitness STG Duration 6 weeks Infant Teacher Goal (LTG) Pt will complete 30 min of physical activity dailty to improve physical fitness LTG Duration 12 weeks 6MWT Impairment Pt ambulated 742 ft with 1 min rest break Short Term Goal (STG) Pt will ambulate >1000 ft with <30 sec rest break during 6MWT to improve activity tolerance STG Duration 6 weeks Infant Teacher Goal (LTG) Pt will ambulate >1500 ft with <30 sec rest break during 6MWT to improve activity tolerance or 1000 ft without AD LTG Duration 12 weeks HEP Impairment Pt does not have HEP Infant Teacher Goal (LTG) Pt will demonstrate independence and safety with HEP to improve and maintain balance and physical fitness LTG Duration 12 weeks Assessment Summary Assessment Noting improved balance with aquatic therapy activities and overall improved activity tolerance at home with less reliance on walker. Depression and anxiety is a limiting factor for getting out of house to be able to do independent exercise program after discharge from PT. Physical Therapy Plan Next Visit Focus/Plan Next Note Type Treatment Note Next Visit Plan Continue PT per POC with combination land and aquatic PT.
--- NOTE | 2019-08-28 13:47 | PT.OTN ---
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 (08/28/19) Other malaise (08/28/19) Physical Therapy Treatment Note PT-OP-A Visit Information Start: 06/26/19 15:28 Freq: Status: Active Protocol: Document 08/28/19 13:04 HH (Rec: 08/28/19 13:46 HH [id number]) Out-Patient Physical Therapy Visit Information Visit Information Visit Type Treatment Note Visit Start Time 13:04 Visit Stop Time 13:45 Total Visit Minutes 41 Visit Number Number of DITCHING MACHINE OPERATING ENGINEER Visits 0 PT-OP-B Current Condition Start: 06/26/19 15:28 Freq: Status: Active Protocol: Document 06/26/19 15:20 HH (Rec: 06/26/19 16:48 HH [id number]) Current Condition History of Current Condition Onset Date Deconditioning 20 yrs, LBP/ radiculopathy 3 years Current Complaints Deconditioning, LBP, occasional L LE radiculopathy History of Current Condition Pt is 43 yo female presenting to clinic with complaints of deconditioning and hx of LBP with radiculopathy. 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 Pt was diagnosed with RA and rheumatoid vasculitis in 1993 and notes that she believes this is when she started to become deconditioned. Pt's LBP and L LE radiculopathy which was worse with minimal exertion started approximately 3 years ago. She had a partial diskectomy f/b a full diskectomy approximately 1.5 year ago with minimal relief from surgeries. Pt reports the LBP and L LE pain was so severe she stayed in nursing homes multiple times and has walked with 4WW for last 3 years. Pt notes that approximately 1 year ago her LE pain was so intense she stopped walking. Pt moved in with sister in bottom floor of the house for more socal support. Approximately 6 months ago started using CBD oil with profound relief of sx , and pt has been able to stop taking gabapentin and reduce 4WW use to only in the mornings or with long distances. As pt's LBP has improved, she is interested in improving physical fitness and reports deconditioning and poor balance limits her the most. She also reports a 70 lb weight gain ~1 year ago d/t a course of high dose steroids, and has been able to lose about 35 lbs but still feels like her weight is limiting her mobility. Pt reports biggest limitations are with long distance walking or climbing more than one flight of stairs. Prior Treatments and Tests Partial f/b full diskectomy L5 -S1 in 2018. Had aquatic therapy in [place], [place] a few years ago which she felt was beneficial. Pt also currently receiving OMT for RA . Treatment Goals Patient/Caregiver Goals Lose weight, improve fitness, walk more, stop using 4WW Prior Functional Status Baseline Function- ADL's Independent Baseline Function- Mobility Independent Baseline Function- Gait Did not use AD prior to 3 years ago. Current Functional Impairments (Reported) Functional Limitations- ADL's Independent with ADLs. Functional Limitations- Mobility/Gait Independent, uses walker in mornings or for extended distances. Personal Factors Other Personal Factors That May Effect Pt is 290lbs (had 70 lb weight Therapy/Recovery gain 1 year ago and has lost about 35 lb since then). 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 PT-OP-C Subjective Start: 06/26/19 15:28 Freq: Status: Active Protocol: Document 08/28/19 13:04 HH (Rec: 08/28/19 13:46 HH [id number]) OP-PT Subjective Patient Comments Patient Comments I havent used my walker for this week and able to get to the pool without it. I felt really good in general. I did feel my back a bit sore probably from the pool therapy but doesnt bother me. Patient Reported Progress Improving PT-OP-D Balance Start: 06/26/19 15:28 Freq: Status: Active Protocol: Document 06/26/19 15:20 HH (Rec: 06/26/19 16:48 HH [id number]) Balance Tests Single Limb Standing Single Limb- Right 3s Single Limb- Left 4s PT-OP-E Functional Tests Start: 06/26/19 15:28 Freq: Status: Active Protocol: Document 06/26/19 15:20 HH (Rec: 06/26/19 18:40 HH [id number]) Functional Tests 6 Minute Walk Test Distance 742 Device Used 4WW Comments Pt took 1 min break from 3-4th minute PT-OP-G Mobility & Gait Start: 06/26/19 15:28 Freq: Status: Active Protocol: Document 06/26/19 15:20 HH (Rec: 06/26/19 16:48 [id number]) OP Mobility Evaluation Transfers Sit to Stand I but slow speed and uses UE support for pushoff. Poor descent control with stand to sit. PT-OP-H Neuro Start: 06/26/19 15:28 Freq: Status: Active Protocol: Document 06/26/19 15:20 HH (Rec: 06/26/19 16:48 [id number]) Sensation Evaluation Location Details Right Lower Extremity Light Touch Impaired Left Lower Extremity Light Touch Impaired Upper Extremity Light Touch Intact/Normal Left Little Finger Light Touch Absent Comments Summary Comments UE sensation to light touch intact except L pinky, pt reports long-term hx of neuropathic damage. LE sensation L impaired L4-S1, R impaired L5. Deep Tendon Reflex & Clonus Assessment Deep Tendon Reflex Bilateral Achilles Deep Tendon Reflex 1+ Diminished Bilateral Patellar Deep Tendon Reflex 2+ Normal Bilateral Brachioradialis Deep Tendon Reflex 2+ Normal Bilateral Tricep Deep Tendon Reflex 2+ Normal Bilateral Bicep Deep Tendon Reflex 2+ Normal Ankle Clonus Bilateral Clonus Assessment Absent Vital Signs Blood Pressure Sitting Blood Pressure (90/60-120/80 mmHg) 160/85 H Blood Pressure Source Manual Cuff Comments Vital Signs Comments After 6MWT = 182/89 H Pt's baseline = 130s/80s PT-OP-J Posture/Palpation/Skin Start: 06/26/19 15:28 Freq: Status: Active Protocol: Document 06/26/19 15:20 HH (Rec: 06/26/19 16:48 [id number]) Posture Evaluation Position Standing Evaluation View Lateral Head/C-Spine Posture Forward Head T-Spine Posture Increased Kyphosis L-Spine Posture Increased Lordosis Shoulder Posture (L) Rounded,(R) Rounded Weight Distribution Weight Shifted Right Hip Posture (L) Externally Rotated,(R) Externally Rotated Knee Posture (L) Genu Valgus,(R) Genu Valgus,(L) Genu Recurvatum,(R) Genu Recurvatum Ankle/Foot Posture (L) Pronated,(R) Pronated PT-OP-K Range of Motion Start: 06/26/19 15:28 Freq: Status: Active Protocol: Document 06/26/19 15:20 HH (Rec: 06/26/19 16:48 [id number]) Cervical Spine Range of Motion Cervical Spine Active Testing Position Sitting Comments WNL Lumbar Spine Range of Motion Lumbar Spine Active Testing Position Standing Comments Flexion fingertips to midshin, extension full range but hinging L/S Hip Goniometric Range of Motion Hip ROM Limitations Comments Excess ER, IR limited. PT-OP-L Special Tests Start: 06/26/19 15:28 Freq: Status: Active Protocol: Document 06/26/19 15:20 (Rec: 06/26/19 16:48 [id number]) Special Tests Other Special Tests Special Tests Babinski -ve B 6 MWT: 742 ft, 1 break (1 min long), used 4WW PT-OP-M Strength Start: 06/26/19 15:28 Freq: Status: Active Protocol: Document 06/26/19 15:20 (Rec: 06/26/19 16:48 [id number]) Shoulder Strength Shoulder Manual Muscle Testing bilateral Abduction (C5) 4 Good Elbow/Forearm Strength Elbow and Forearm Manual Muscle Testing bilateral Flexion (C6) 4+ Good+ Extension (C7) 4+ Good+ Wrist Strength Wrist Manual Muscle Testing bilateral Flexion (C7) 4+ Good+ Extension (C6) 4+ Good+ Hip Strength Hip Manual Muscle Testing bilateral Flexion (L2) 4- Good- Knee Strength Knee Manual Muscle Testing bilateral Flexion (S2) 4 Good Extension (L3) 4 Good Ankle/Foot Strength Ankle and Foot Manual Muscle Testing bilateral Dorsiflexion (L4) 4 Good Plantarflexion (S1) 4 Good PT-OP-Q Treatments Start: 06/26/19 15:28 Freq: Status: Active Protocol: Document 08/28/19 13:04 (Rec: 08/28/19 13:46 [id number]) Cardio Equipment Recumbent Stepper (Sci-Fit) Duration (Minutes) 5 Resistance 5 Other 50RPM Treadmill Duration (Minutes) 7 Speed 1.2-1.6 Incline 0 Therapeutic Exercises Standing Exercises high knee walk Side bilateral Equipment Used within //bar Reps/Minutes 2 round trips x2 Comments 10 x2 side step Side bilateral Equipment Used next to grab bar Reps/Minutes 2 rounds trip x 2 Comments [address] standing marching Standing Exercise Name 3 sec knee hold each rep Side bilateral Equipment Used next to counter Reps/Minutes in front of mirror Comments 10 x2 PT-OP-S Aquatic Treatment Start: 06/26/19 15:28 Freq: Status: Active Protocol: Document 08/25/19 17:15 SAK (Rec: 08/25/19 17:19 SAK [id number]) Aquatics Treatment Pool Entry/Exit Pool Entry/Exit Method Stairs Assistance Standby Assistance Water Walking [place] March Water Level Waist Level Walking Equipment Resistance Fins Level of Assistance Standby Assistance,Verbal Cues Marching Water Level Waist Level Walking Equipment Resistance Fins Level of Assistance Standby Assistance,Verbal Cues Sideways Water Level Chest Level Walking Equipment Resistance Fins Level of Assistance Standby Assistance,Verbal Cues Forwards Water Level Waist Level Walking Equipment Resistance Fins Level of Assistance Standby Assistance,Verbal Cues Lower Extremity Exercises hip ab/ad Equipment Resistance Fins Reps/Duration 15x hip flex/ext Equipment Resistance Fins Reps/Duration 15x hip CCW/CW Body Position Standing Water Level Chest Level Reps/Duration 2x15 bilat both dir Comments no hh, fast and slow squats Reps/Duration 10x Comments cues for gluteal activation Lower Extremity Stretches gastroc, soleus Body Position Standing Reps/Duration 2x30 Comments standing at wall hip-spiderman Reps/Duration 2x45 SKTC, piriformis Body Position Standing Reps/Duration 2x30 Comments at wall HS, Quads, Body Position Standing Water Level Chest Level Equipment Small Noodle, large noodle Reps/Duration 2x30 Comments hh at wall [place] Activities [place] Activities Bicycle,Bicycle Backwards, Cross Country,Running Equipment white noodle Duration 10 PT-OP-T Assessment and Plan Start: 06/26/19 15:28 Freq: Status: Active Protocol: Document 08/28/19 13:04 HH (Rec: 08/28/19 13:46 HH [id number]) Physical Therapy Assessment Goals gorcery shop Impairment Pt uses electric scooter for grocery shop Longterm Goal (LTG) Pt will be able to grocery shop without using any AD and electric scooter. LTG Duration 8 weeks. Balance Impairment Pt unable to balance single leg >5 sec Short Term Goal (STG) Pt will single leg stand >10 sec B to improve safety with activity STG Duration 6 weeks Longterm Goal (LTG) Pt will single leg stand >20 sec B to improve safety with activity LTG Duration 12 weeks Activity level Impairment Pt does not participate in regular physical activity Short Term Goal (STG) Pt will complete 20 min of physical activity daily to improve physical fitness STG Duration 6 weeks Longterm Goal (LTG) Pt will complete 30 min of physical activity dailty to improve physical fitness LTG Duration 12 weeks 6MWT Impairment Pt ambulated 742 ft with 1 min rest break Short Term Goal (STG) Pt will ambulate >1000 ft with <30 sec rest break during 6MWT to improve activity tolerance STG Duration 6 weeks Longterm Goal (LTG) Pt will ambulate >1500 ft with <30 sec rest break during 6MWT to improve activity tolerance or 1000 ft without AD LTG Duration 12 weeks HEP Impairment Pt does not have HEP Public Accountant Goal (LTG) Pt will demonstrate independence and safety with HEP to improve and maintain balance and physical fitness LTG Duration 12 weeks Assessment Summary Assessment Pt show significant increased activity tolerance. Reached 7 mins with TM walking at 1.2-1. 6. Started balancing ex with high knee walk and side step without support. Pt reports this session as a good workout and excited to be mobile. Also provided pt a calender to track her new daily walking program (>10mins/day). Physical Therapy Plan Next Visit Focus/Plan Next Note Type Treatment Note Next Visit Plan Continue PT per POC with combination land and aquatic PT. monitor pt's walking program.
--- NOTE | 2019-09-01 13:02 | PT-OP ANOTE ---
cancel PT appointment
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
--- NOTE | 2019-09-08 14:30 | PT-OP ANOTE ---
DNS for PT appointment
--- NOTE | 2019-09-16 11:59 | PT.OTN ---
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 (08/28/19) Other malaise (08/28/19) Physical Therapy Treatment Note PT-OP-A Visit Information Start: 06/26/19 15:28 Freq: Status: Active Protocol: Document 09/15/19 11:45 SAK (Rec: 09/16/19 09:11 SAK [id number]) Out-Patient Physical Therapy Visit Information Visit Information Visit Type Aquatic Treatment Note Visit Start Time 11:45 Visit Stop Time 12:30 Total Visit Minutes 50 Visit Number Number of BEREAVEMENT PROGRAM COORDINATOR Visits 0 PT-OP-B Current Condition Start: 06/26/19 15:28 Freq: Status: Active Protocol: Document 06/26/19 15:20 HH (Rec: 06/26/19 16:48 HH [id number]) Current Condition History of Current Condition Onset Date Deconditioning 20 yrs, LBP/ radiculopathy 3 years Current Complaints Deconditioning, LBP, occasional L LE radiculopathy History of Current Condition Pt is 43 yo female presenting to clinic with complaints of deconditioning and hx of LBP with radiculopathy. 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 Pt was diagnosed with RA and rheumatoid vasculitis in 1993 and notes that she believes this is when she started to become deconditioned. Pt's LBP and L LE radiculopathy which was worse with minimal exertion started approximately 3 years ago. She had a partial diskectomy f/b a full diskectomy approximately 1.5 year ago with minimal relief from surgeries. Pt reports the LBP and L LE pain was so severe she stayed in nursing homes multiple times and has walked with 4WW for last 3 years. Pt notes that approximately 1 year ago her LE pain was so intense she stopped walking. Pt moved in with sister in bottom floor of the house for more socal support. Approximately 6 months ago started using CBD oil with profound relief of sx , and pt has been able to stop taking gabapentin and reduce 4WW use to only in the mornings or with long distances. As pt's LBP has improved, she is interested in improving physical fitness and reports deconditioning and poor balance limits her the most. She also reports a 70 lb weight gain ~1 year ago d/t a course of high dose steroids, and has been able to lose about 35 lbs but still feels like her weight is limiting her mobility. Pt reports biggest limitations are with long distance walking or climbing more than one flight of stairs. Prior Treatments and Tests Partial f/b full diskectomy L5 -S1 in 2018. Had aquatic therapy in [place], [place] a few years ago which she felt was beneficial. Pt also currently receiving OMT for RA . Treatment Goals Patient/Caregiver Goals Lose weight, improve fitness, walk more, stop using 4WW Prior Functional Status Baseline Function- ADL's Independent Baseline Function- Mobility Independent Baseline Function- Gait Did not use AD prior to 3 years ago. Current Functional Impairments (Reported) Functional Limitations- ADL's Independent with ADLs. Functional Limitations- Mobility/Gait Independent, uses walker in mornings or for extended distances. Personal Factors Other Personal Factors That May Effect Pt is 290lbs (had 70 lb weight Therapy/Recovery gain 1 year ago and has lost about 35 lb since then). 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 PT-OP-C Subjective Start: 06/26/19 15:28 Freq: Status: Active Protocol: Document 09/15/19 11:45 SAK (Rec: 09/16/19 09:11 SAK [id number]) OP-PT Subjective Patient Comments Patient Comments Feeling more stiff the past week, hasn't been able to exercise as much due to weather, couldn't get to the pool. Having some medication adjustments. PT-OP-D Balance Start: 06/26/19 15:28 Freq: Status: Active Protocol: Document 06/26/19 15:20 (Rec: 06/26/19 16:48 [id number]) Balance Tests Single Limb Standing Single Limb- Right 3s Single Limb- Left 4s PT-OP-E Functional Tests Start: 06/26/19 15:28 Freq: Status: Active Protocol: Document 06/26/19 15:20 (Rec: 06/26/19 18:40 HH [id number]) Functional Tests 6 Minute Walk Test Distance 742 Device Used 4WW Comments Pt took 1 min break from 3-4th minute PT-OP-G Mobility & Gait Start: 06/26/19 15:28 Freq: Status: Active Protocol: Document 06/26/19 15:20 HH (Rec: 06/26/19 16:48 [id number]) OP Mobility Evaluation Transfers Sit to Stand I but slow speed and uses UE support for pushoff. Poor descent control with stand to sit. PT-OP-H Neuro Start: 06/26/19 15:28 Freq: Status: Active Protocol: Document 06/26/19 15:20 HH (Rec: 06/26/19 16:48 [id number]) Sensation Evaluation Location Details Right Lower Extremity Light Touch Impaired Left Lower Extremity Light Touch Impaired Upper Extremity Light Touch Intact/Normal Left Little Finger Light Touch Absent Comments Summary Comments UE sensation to light touch intact except L pinky, pt reports long-term hx of neuropathic damage. LE sensation L impaired L4-S1, R impaired L5. Deep Tendon Reflex & Clonus Assessment Deep Tendon Reflex Bilateral Achilles Deep Tendon Reflex 1+ Diminished Bilateral Patellar Deep Tendon Reflex 2+ Normal Bilateral Brachioradialis Deep Tendon Reflex 2+ Normal Bilateral Tricep Deep Tendon Reflex 2+ Normal Bilateral Bicep Deep Tendon Reflex 2+ Normal Ankle Clonus Bilateral Clonus Assessment Absent Vital Signs Blood Pressure Sitting Blood Pressure (90/60-120/80 mmHg) 160/85 H Blood Pressure Source Manual Cuff Comments Vital Signs Comments After 6MWT = 182/89 H Pt's baseline = 130s/80s PT-OP-J Posture/Palpation/Skin Start: 06/26/19 15:28 Freq: Status: Active Protocol: Document 06/26/19 15:20 HH (Rec: 06/26/19 16:48 [id number]) Posture Evaluation Position Standing Evaluation View Lateral Head/C-Spine Posture Forward Head T-Spine Posture Increased Kyphosis L-Spine Posture Increased Lordosis Shoulder Posture (L) Rounded,(R) Rounded Weight Distribution Weight Shifted Right Hip Posture (L) Externally Rotated,(R) Externally Rotated Knee Posture (L) Genu Valgus,(R) Genu Valgus,(L) Genu Recurvatum,(R) Genu Recurvatum Ankle/Foot Posture (L) Pronated,(R) Pronated PT-OP-K Range of Motion Start: 06/26/19 15:28 Freq: Status: Active Protocol: Document 06/26/19 15:20 HH (Rec: 06/26/19 16:48 [id number]) Cervical Spine Range of Motion Cervical Spine Active Testing Position Sitting Comments WNL Lumbar Spine Range of Motion Lumbar Spine Active Testing Position Standing Comments Flexion fingertips to midshin, extension full range but hinging L/S Hip Goniometric Range of Motion Hip ROM Limitations Comments Excess ER, IR limited. PT-OP-L Special Tests Start: 06/26/19 15:28 Freq: Status: Active Protocol: Document 06/26/19 15:20 (Rec: 06/26/19 16:48 [id number]) Special Tests Other Special Tests Special Tests Babinski -ve B 6 MWT: 742 ft, 1 break (1 min long), used 4WW PT-OP-M Strength Start: 06/26/19 15:28 Freq: Status: Active Protocol: Document 06/26/19 15:20 (Rec: 06/26/19 16:48 [id number]) Shoulder Strength Shoulder Manual Muscle Testing bilateral Abduction (C5) 4 Good Elbow/Forearm Strength Elbow and Forearm Manual Muscle Testing bilateral Flexion (C6) 4+ Good+ Extension (C7) 4+ Good+ Wrist Strength Wrist Manual Muscle Testing bilateral Flexion (C7) 4+ Good+ Extension (C6) 4+ Good+ Hip Strength Hip Manual Muscle Testing bilateral Flexion (L2) 4- Good- Knee Strength Knee Manual Muscle Testing bilateral Flexion (S2) 4 Good Extension (L3) 4 Good Ankle/Foot Strength Ankle and Foot Manual Muscle Testing bilateral Dorsiflexion (L4) 4 Good Plantarflexion (S1) 4 Good PT-OP-Q Treatments Start: 06/26/19 15:28 Freq: Status: Active Protocol: Document 08/28/19 13:04 (Rec: 08/28/19 13:46 [id number]) Cardio Equipment Recumbent Stepper (Sci-Fit) Duration (Minutes) 5 Resistance 5 Other 50RPM Treadmill Duration (Minutes) 7 Speed 1.2-1.6 Incline 0 Therapeutic Exercises Standing Exercises high knee walk Side bilateral Equipment Used within //bar Reps/Minutes 2 round trips x2 Comments 10 x2 side step Side bilateral Equipment Used next to grab bar Reps/Minutes 2 rounds trip x 2 Comments [address] standing marching Standing Exercise Name 3 sec knee hold each rep Side bilateral Equipment Used next to counter Reps/Minutes in front of mirror Comments 10 x2 PT-OP-S Aquatic Treatment Start: 06/26/19 15:28 Freq: Status: Active Protocol: Document 09/15/19 11:45 COTY (Rec: 09/16/19 11:59 [facility] [id number]) Aquatics Treatment Pool Entry/Exit Pool Entry/Exit Method Stairs Assistance Standby Assistance Water Walking [place] March Water Level Waist Level Level of Assistance Standby Assistance,Verbal Cues Marching Water Level Waist Level Level of Assistance Standby Assistance,Verbal Cues Sideways Water Level Chest Level Level of Assistance Standby Assistance,Verbal Cues Forwards Water Level Waist Level Level of Assistance Standby Assistance,Verbal Cues Lower Extremity Exercises hip ab/ad Reps/Duration 15x hip flex/ext Reps/Duration 15x hip CCW/CW Body Position Standing Water Level Chest Level Reps/Duration 2x15 bilat both dir Comments no hh, fast and slow squats Reps/Duration 112x Comments cues for gluteal activation Lower Extremity Stretches gastroc, soleus Body Position Standing Reps/Duration 2x30 Comments standing at wall hip-spiderman Reps/Duration 2x45 SKTC, piriformis Body Position Standing Reps/Duration 2x30 Comments at wall HS, Quads, Body Position Standing Water Level Chest Level Equipment Small Noodle, large noodle Reps/Duration 2x30 Comments hh at wall [place] Activities [place] Activities Bicycle,Bicycle Backwards, Cross Country,Running Equipment white noodle Duration 10 PT-OP-T Assessment and Plan Start: 06/26/19 15:28 Freq: Status: Active Protocol: Document 09/15/19 11:45 COTY (Rec: 09/16/19 11:59 [facility] [id number]) Physical Therapy Assessment Goals Balance Impairment Pt unable to balance single leg >5 sec Short Term Goal (STG) Pt will single leg stand >10 sec B to improve safety with activity STG Duration 6 weeks Senior Living Goal (LTG) Pt will single leg stand >20 sec B to improve safety with activity LTG Duration 12 weeks Activity level Impairment Pt does not participate in regular physical activity Short Term Goal (STG) Pt will complete 20 min of physical activity daily to improve physical fitness STG Duration 6 weeks Armor Officer Goal (LTG) Pt will complete 30 min of physical activity dailty to improve physical fitness LTG Duration 12 weeks 6MWT Impairment Pt ambulated 742 ft with 1 min rest break Short Term Goal (STG) Pt will ambulate >1000 ft with <30 sec rest break during 6MWT to improve activity tolerance STG Duration 6 weeks Senior Living Goal (LTG) Pt will ambulate >1500 ft with <30 sec rest break during 6MWT to improve activity tolerance or 1000 ft without AD LTG Duration 12 weeks HEP Impairment Pt does not have HEP Armor Officer Goal (LTG) Pt will demonstrate independence and safety with HEP to improve and maintain balance and physical fitness LTG Duration 12 weeks Assessment Summary Assessment Decreased activity tolerance today with increased aching and stiffness reported. Discussed importance of patient being able to come to the pool on her own for aquatic exercise; reports anxiety often keeps her home though she feels so much better after aquatic exercise. Working with her counselor on strategies for decreasing anxiety and improving her ability to get out and be more active. Physical Therapy Plan Frequency and Duration Frequency of Treatment 2x/Week Duration of Treatment 12 weeks Plan of Care Start Date 06/26/19 Plan of Care End Date 09/18/19 Next Visit Focus/Plan Next Note Type Re-Evaluation Next Visit Plan Reassess,discuss POC.
--- NOTE | 2019-09-22 13:53 | PT.OTN ---
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 (09/22/19) Other malaise (09/22/19) Physical Therapy Treatment Note PT-OP-A Visit Information Start: 06/26/19 15:28 Freq: Status: Active Protocol: Document 09/22/19 13:43 SAK (Rec: 09/22/19 13:53 SAK [id number]) Out-Patient Physical Therapy Visit Information Visit Information Visit Type Aquatic Treatment Note Visit Start Time 11:45 Visit Stop Time 12:30 Total Visit Minutes 50 Visit Number Number of EDUCATIONAL PROGRAMMING DIRECTOR Visits 0 PT-OP-B Current Condition Start: 06/26/19 15:28 Freq: Status: Active Protocol: Document 06/26/19 15:20 HH (Rec: 06/26/19 16:48 HH [id number]) Current Condition History of Current Condition Onset Date Deconditioning 20 yrs, LBP/ radiculopathy 3 years Current Complaints Deconditioning, LBP, occasional L LE radiculopathy History of Current Condition Pt is 43 yo female presenting to clinic with complaints of deconditioning and hx of LBP with radiculopathy. Pt also notes RA in hands/wrists in addition to CTS limit ability to knuckler and requiring her to sleep with CTS splints at night. Pt was diagnosed with RA and rheumatoid vasculitis in 1993 and notes that she believes this is when she started to become deconditioned. Pt's LBP and L LE radiculopathy which was worse with minimal exertion started approximately 3 years ago. She had a partial diskectomy f/b a full diskectomy approximately 1.5 year ago with minimal relief from surgeries. Pt reports the LBP and L LE pain was so severe she stayed in nursing homes multiple times and has walked with 4WW for last 3 years. Pt notes that approximately 1 year ago her LE pain was so intense she stopped walking. Pt moved in with sister in bottom floor of the house for more socal support. Approximately 6 months ago started using CBD oil with profound relief of sx , and pt has been able to stop taking gabapentin and reduce 4WW use to only in the mornings or with long distances. As pt's LBP has improved, she is interested in improving physical fitness and reports deconditioning and poor balance limits her the most. She also reports a 70 lb weight gain ~1 year ago d/t a course of high dose steroids, and has been able to lose about 35 lbs but still feels like her weight is limiting her mobility. Pt reports biggest limitations are with long distance walking or climbing more than one flight of stairs. Prior Treatments and Tests Partial f/b full diskectomy L5 -S1 in 2018. Had aquatic therapy in [place], [place] a few years ago which she felt was beneficial. Pt also currently receiving OMT for RA . Treatment Goals Patient/Caregiver Goals Lose weight, improve fitness, walk more, stop using 4WW Prior Functional Status Baseline Function- ADL's Independent Baseline Function- Mobility Independent Baseline Function- Gait Did not use AD prior to 3 years ago. Current Functional Impairments (Reported) Functional Limitations- ADL's Independent with ADLs. Functional Limitations- Mobility/Gait Independent, uses walker in mornings or for extended distances. Personal Factors Other Personal Factors That May Effect Pt is 290lbs (had 70 lb weight Therapy/Recovery gain 1 year ago and has lost about 35 lb since then). 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 PT-OP-C Subjective Start: 06/26/19 15:28 Freq: Status: Active Protocol: Document 09/15/19 11:45 SAK (Rec: 09/16/19 09:11 SAK [id number]) OP-PT Subjective Patient Comments Patient Comments Feeling more stiff the past week, hasn't been able to exercise as much due to weather, couldn't get to the pool. Having some medication adjustments. PT-OP-D Balance Start: 06/26/19 15:28 Freq: Status: Active Protocol: Document 06/26/19 15:20 (Rec: 06/26/19 16:48 [id number]) Balance Tests Single Limb Standing Single Limb- Right 3s Single Limb- Left 4s PT-OP-E Functional Tests Start: 06/26/19 15:28 Freq: Status: Active Protocol: Document 06/26/19 15:20 (Rec: 06/26/19 18:40 HH [id number]) Functional Tests 6 Minute Walk Test Distance 742 Device Used 4WW Comments Pt took 1 min break from 3-4th minute PT-OP-G Mobility & Gait Start: 06/26/19 15:28 Freq: Status: Active Protocol: Document 06/26/19 15:20 HH (Rec: 06/26/19 16:48 [id number]) OP Mobility Evaluation Transfers Sit to Stand I but slow speed and uses UE support for pushoff. Poor descent control with stand to sit. PT-OP-H Neuro Start: 06/26/19 15:28 Freq: Status: Active Protocol: Document 06/26/19 15:20 HH (Rec: 06/26/19 16:48 [id number]) Sensation Evaluation Location Details Right Lower Extremity Light Touch Impaired Left Lower Extremity Light Touch Impaired Upper Extremity Light Touch Intact/Normal Left Little Finger Light Touch Absent Comments Summary Comments UE sensation to light touch intact except L pinky, pt reports long-term hx of neuropathic damage. LE sensation L impaired L4-S1, R impaired L5. Deep Tendon Reflex & Clonus Assessment Deep Tendon Reflex Bilateral Achilles Deep Tendon Reflex 1+ Diminished Bilateral Patellar Deep Tendon Reflex 2+ Normal Bilateral Brachioradialis Deep Tendon Reflex 2+ Normal Bilateral Tricep Deep Tendon Reflex 2+ Normal Bilateral Bicep Deep Tendon Reflex 2+ Normal Ankle Clonus Bilateral Clonus Assessment Absent Vital Signs Blood Pressure Sitting Blood Pressure (90/60-120/80 mmHg) 160/85 H Blood Pressure Source Manual Cuff Comments Vital Signs Comments After 6MWT = 182/89 H Pt's baseline = 130s/80s PT-OP-J Posture/Palpation/Skin Start: 06/26/19 15:28 Freq: Status: Active Protocol: Document 06/26/19 15:20 HH (Rec: 06/26/19 16:48 [id number]) Posture Evaluation Position Standing Evaluation View Lateral Head/C-Spine Posture Forward Head T-Spine Posture Increased Kyphosis L-Spine Posture Increased Lordosis Shoulder Posture (L) Rounded,(R) Rounded Weight Distribution Weight Shifted Right Hip Posture (L) Externally Rotated,(R) Externally Rotated Knee Posture (L) Genu Valgus,(R) Genu Valgus,(L) Genu Recurvatum,(R) Genu Recurvatum Ankle/Foot Posture (L) Pronated,(R) Pronated PT-OP-K Range of Motion Start: 06/26/19 15:28 Freq: Status: Active Protocol: Document 06/26/19 15:20 HH (Rec: 06/26/19 16:48 [id number]) Cervical Spine Range of Motion Cervical Spine Active Testing Position Sitting Comments WNL Lumbar Spine Range of Motion Lumbar Spine Active Testing Position Standing Comments Flexion fingertips to midshin, extension full range but hinging L/S Hip Goniometric Range of Motion Hip ROM Limitations Comments Excess ER, IR limited. PT-OP-L Special Tests Start: 06/26/19 15:28 Freq: Status: Active Protocol: Document 06/26/19 15:20 (Rec: 06/26/19 16:48 [id number]) Special Tests Other Special Tests Special Tests Babinski -ve B 6 MWT: 742 ft, 1 break (1 min long), used 4WW PT-OP-M Strength Start: 06/26/19 15:28 Freq: Status: Active Protocol: Document 06/26/19 15:20 (Rec: 06/26/19 16:48 [id number]) Shoulder Strength Shoulder Manual Muscle Testing bilateral Abduction (C5) 4 Good Elbow/Forearm Strength Elbow and Forearm Manual Muscle Testing bilateral Flexion (C6) 4+ Good+ Extension (C7) 4+ Good+ Wrist Strength Wrist Manual Muscle Testing bilateral Flexion (C7) 4+ Good+ Extension (C6) 4+ Good+ Hip Strength Hip Manual Muscle Testing bilateral Flexion (L2) 4- Good- Knee Strength Knee Manual Muscle Testing bilateral Flexion (S2) 4 Good Extension (L3) 4 Good Ankle/Foot Strength Ankle and Foot Manual Muscle Testing bilateral Dorsiflexion (L4) 4 Good Plantarflexion (S1) 4 Good PT-OP-Q Treatments Start: 06/26/19 15:28 Freq: Status: Active Protocol: Document 08/28/19 13:04 (Rec: 08/28/19 13:46 [id number]) Cardio Equipment Recumbent Stepper (Sci-Fit) Duration (Minutes) 5 Resistance 5 Other 50RPM Treadmill Duration (Minutes) 7 Speed 1.2-1.6 Incline 0 Therapeutic Exercises Standing Exercises high knee walk Side bilateral Equipment Used within //bar Reps/Minutes 2 round trips x2 Comments 10 x2 side step Side bilateral Equipment Used next to grab bar Reps/Minutes 2 rounds trip x [address] Comments [address] standing marching Standing Exercise Name 3 sec knee hold each rep Side bilateral Equipment Used next to counter Reps/Minutes in front of mirror Comments 10 x2 PT-OP-S Aquatic Treatment Start: 06/26/19 15:28 Freq: Status: Active Protocol: Document 09/22/19 13:43 COTY (Rec: 09/22/19 13:53 [facility] [id number]) Aquatics Treatment Pool Entry/Exit Pool Entry/Exit Method Stairs Assistance Standby Assistance Water Walking backward march Water Level Waist Level Level of Assistance Standby Assistance,Verbal Cues barrel walk Water Level Waist Level Level of Assistance Standby Assistance,Verbal Cues [place] March Water Level Waist Level Level of Assistance Standby Assistance,Verbal Cues Marching Water Level Waist Level Level of Assistance Standby Assistance,Verbal Cues Comments touching opposite knee Sideways Water Level Chest Level Level of Assistance Standby Assistance,Verbal Cues Comments with windshield wiper UE's Forwards Water Level Waist Level Level of Assistance Standby Assistance,Verbal Cues Lower Extremity Exercises knee flex/ext Reps/Duration 15x hip ab/ad Reps/Duration 15x hip flex/ext Reps/Duration 15x hip CCW/CW Body Position Standing Water Level Chest Level Reps/Duration 2x15 bilat both dir Comments no hh, fast and slow squats Reps/Duration 12x Lower Extremity Stretches gastroc, soleus Body Position Standing Reps/Duration 2x30 Comments standing at wall hip-spiderman Reps/Duration 2x45 SKTC, piriformis Body Position Standing Reps/Duration 2x30 Comments at wall HS, Quads, Body Position Standing Water Level Chest Level Equipment Small Noodle, large noodle Reps/Duration 2x30 Comments hh at wall Balance tandem gait Reps/Duration 30m SLS Reps/Duration 3x ea [place] Activities [place] Activities Bicycle,Bicycle Backwards, Cross Country,Running Equipment flotation belt (reversed) Duration 10 PT-OP-T Assessment and Plan Start: 06/26/19 15:28 Freq: Status: Active Protocol: Document 09/22/19 13:43 COTY (Rec: 09/22/19 13:53 [facility] [id number]) Physical Therapy Assessment Goals gorcery shop Impairment Pt uses electric scooter for grocery shop Nursing Home Goal (LTG) Pt will be able to grocery shop without using any AD and electric scooter. LTG Duration 11/21/19 Balance Impairment Pt unable to balance single leg >5 sec Short Term Goal (STG) Pt will single leg stand >10 sec B to improve safety with activity STG Duration 6 weeks Manager Presentation Goal (LTG) Pt will single leg stand >20 sec B to improve safety with activity LTG Duration 11/21/19 Activity level Impairment Pt does not participate in regular physical activity Short Term Goal (STG) Pt will complete 20 min of physical activity daily to improve physical fitness STG Duration 6 weeks Manager Presentation Goal (LTG) Pt will complete 30 min of physical activity dailty to improve physical fitness LTG Duration 11/21/19 6MWT Impairment Pt ambulated 742 ft with 1 min rest break Short Term Goal (STG) Pt will ambulate >1000 ft with <30 sec rest break during 6MWT to improve activity tolerance STG Duration 6 weeks Nursing Home Goal (LTG) Pt will ambulate >1500 ft with <30 sec rest break during 6MWT to improve activity tolerance or 1000 ft without AD LTG Duration 11/21/19 HEP Impairment Pt does not have HEP Manager Presentation Goal (LTG) Pt will demonstrate independence and safety with HEP to improve and maintain balance and physical fitness LTG Duration 11/21/19 Assessment Summary Assessment Able to tolerate progression of balance exercises in aquatic therapy today. Not using walker anymore. Continues to make progress. Would benefit from further PT. Physical Therapy Plan Frequency and Duration Frequency of Treatment 2x/Week Duration of Treatment 12 weeks Plan of Care Start Date 09/18/19 Plan of Care End Date 11/21/19 Next Visit Focus/Plan Next Note Type Treatment Note Next Visit Plan Continue land and aquatic based PT, encourage increased community-based ther ex (pool and fitness center)
--- NOTE | 2019-09-22 13:53 | PT.OPPOC ---
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 (09/22/19) Other malaise (09/22/19) Visit Care Team Role Provider Type Other Providers Specialty: Address: Phone: Fax: Email: Daisy Weinberg DO Attending Provider Non-Staff Specialty: Medical Address: [address] [place] [address], [id number] Email: Plan Of Care PT-OP-T Assessment and Plan Start: 06/26/19 15:28 Freq: Status: Active Protocol: Document 09/22/19 13:43 COTY (Rec: 09/22/19 13:53 COTY [id number]) Physical Therapy Assessment Goals gorcery shop Impairment Pt uses electric scooter for grocery shop Factory Maintenance Manager Goal (LTG) Pt will be able to grocery shop without using any AD and electric scooter. LTG Duration 11/21/19 Balance Impairment Pt unable to balance single leg >5 sec Short Term Goal (STG) Pt will single leg stand >10 sec B to improve safety with activity STG Duration 6 weeks Factory Maintenance Manager Goal (LTG) Pt will single leg stand >20 sec B to improve safety with activity LTG Duration 11/21/19 Activity level Impairment Pt does not participate in regular physical activity Short Term Goal (STG) Pt will complete 20 min of physical activity daily to improve physical fitness STG Duration 6 weeks Jail Goal (LTG) Pt will complete 30 min of physical activity dailty to improve physical fitness LTG Duration 11/21/19 6MWT Impairment Pt ambulated 742 ft with 1 min rest break Short Term Goal (STG) Pt will ambulate >1000 ft with <30 sec rest break during 6MWT to improve activity tolerance STG Duration 6 weeks Jail Goal (LTG) Pt will ambulate >1500 ft with <30 sec rest break during 6MWT to improve activity tolerance or 1000 ft without AD LTG Duration 11/21/19 HEP Impairment Pt does not have HEP Jail Goal (LTG) Pt will demonstrate independence and safety with HEP to improve and maintain balance and physical fitness LTG Duration 11/21/19 Assessment Summary Assessment Able to tolerate progression of balance exercises in aquatic therapy today. Not using walker anymore. Continues to make progress. Would benefit from further PT. Physical Therapy Plan Frequency and Duration Frequency of Treatment 2x/Week Duration of Treatment 12 weeks Plan of Care Start Date 09/18/19 Plan of Care End Date 11/21/19 Next Visit Focus/Plan Next Note Type Treatment Note Next Visit Plan Continue land and aquatic based PT, encourage increased community-based ther ex (pool and fitness center) Plan of Care Dates Plan of Care Start Date 09/18/19 Plan of Care End Date 11/21/19 Electronically Signed by: Gretchen Law, PT 09/22/19 [id number] Please Sign and Return: I have reviewed this Plan of Care and certify that the skilled therapy services above are required to meet the patient?s needs. Physician Signature Date Printed Name and Credentials Clinical Instructor Signature Printed Name and Credentials
--- NOTE | 2019-09-25 14:35 | PT.OTN ---
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 (09/25/19) Other malaise (09/25/19) Physical Therapy Treatment Note PT-OP-A Visit Information Start: 06/26/19 15:28 Freq: Status: Active Protocol: Document 09/25/19 13:05 HH (Rec: 09/25/19 14:33 HH [id number]) Out-Patient Physical Therapy Visit Information Visit Information Visit Type Treatment Note Visit Start Time 13:05 Visit Stop Time 13:45 Total Visit Minutes 40 Visit Number Number of SPACE SCIENCES DIRECTOR Visits 0 PT-OP-B Current Condition Start: 06/26/19 15:28 Freq: Status: Active Protocol: Document 06/26/19 15:20 HH (Rec: 06/26/19 16:48 HH [id number]) Current Condition History of Current Condition Onset Date Deconditioning 20 yrs, LBP/ radiculopathy 3 years Current Complaints Deconditioning, LBP, occasional L LE radiculopathy History of Current Condition Pt is 43 yo female presenting to clinic with complaints of deconditioning and hx of LBP with radiculopathy. 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 Pt was diagnosed with RA and rheumatoid vasculitis in 1993 and notes that she believes this is when she started to become deconditioned. Pt's LBP and L LE radiculopathy which was worse with minimal exertion started approximately 3 years ago. She had a partial diskectomy f/b a full diskectomy approximately 1.5 year ago with minimal relief from surgeries. Pt reports the LBP and L LE pain was so severe she stayed in nursing homes multiple times and has walked with 4WW for last 3 years. Pt notes that approximately 1 year ago her LE pain was so intense she stopped walking. Pt moved in with sister in bottom floor of the house for more socal support. Approximately 6 months ago started using CBD oil with profound relief of sx , and pt has been able to stop taking gabapentin and reduce 4WW use to only in the mornings or with long distances. As pt's LBP has improved, she is interested in improving physical fitness and reports deconditioning and poor balance limits her the most. She also reports a 70 lb weight gain ~1 year ago d/t a course of high dose steroids, and has been able to lose about 35 lbs but still feels like her weight is limiting her mobility. Pt reports biggest limitations are with long distance walking or climbing more than one flight of stairs. Prior Treatments and Tests Partial f/b full diskectomy L5 -S1 in 2018. Had aquatic therapy in [place], [place] a few years ago which she felt was beneficial. Pt also currently receiving OMT for RA . Treatment Goals Patient/Caregiver Goals Lose weight, improve fitness, walk more, stop using 4WW Prior Functional Status Baseline Function- ADL's Independent Baseline Function- Mobility Independent Baseline Function- Gait Did not use AD prior to 3 years ago. Current Functional Impairments (Reported) Functional Limitations- ADL's Independent with ADLs. Functional Limitations- Mobility/Gait Independent, uses walker in mornings or for extended distances. Personal Factors Other Personal Factors That May Effect Pt is 290lbs (had 70 lb weight Therapy/Recovery gain 1 year ago and has lost about 35 lb since then). 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 PT-OP-C Subjective Start: 06/26/19 15:28 Freq: Status: Active Protocol: Document 09/25/19 13:05 (Rec: 09/25/19 14:33 [id number]) OP-PT Subjective Patient Comments Patient Comments I feel kind of sick today and not much strength. I am going to see my PCP tomorrow. Doing aquatic therapy has been going well for me. Patient Reported Progress Same PT-OP-D Balance Start: 06/26/19 15:28 Freq: Status: Active Protocol: Document 09/25/19 13:05 (Rec: 09/25/19 14:33 [id number]) Balance Tests Single Limb Standing Single Limb- Right 30s Single Limb- Left 26s PT-OP-E Functional Tests Start: 06/26/19 15:28 Freq: Status: Active Protocol: Document 09/25/19 13:05 (Rec: 09/25/19 14:33 [id number]) Functional Tests 6 Minute Walk Test Distance 711 Device Used none Comments 2 30-45s break taken PT-OP-G Mobility & Gait Start: 06/26/19 15:28 Freq: Status: Active Protocol: Document 06/26/19 15:20 HH (Rec: 06/26/19 16:48 [id number]) OP Mobility Evaluation Transfers Sit to Stand I but slow speed and uses UE support for pushoff. Poor descent control with stand to sit. PT-OP-H Neuro Start: 06/26/19 15:28 Freq: Status: Active Protocol: Document 06/26/19 15:20 HH (Rec: 06/26/19 16:48 [id number]) Sensation Evaluation Location Details Right Lower Extremity Light Touch Impaired Left Lower Extremity Light Touch Impaired Upper Extremity Light Touch Intact/Normal Left Little Finger Light Touch Absent Comments Summary Comments UE sensation to light touch intact except L pinky, pt reports long-term hx of neuropathic damage. LE sensation L impaired L4-S1, R impaired L5. Deep Tendon Reflex & Clonus Assessment Deep Tendon Reflex Bilateral Achilles Deep Tendon Reflex 1+ Diminished Bilateral Patellar Deep Tendon Reflex 2+ Normal Bilateral Brachioradialis Deep Tendon Reflex 2+ Normal Bilateral Tricep Deep Tendon Reflex 2+ Normal Bilateral Bicep Deep Tendon Reflex 2+ Normal Ankle Clonus Bilateral Clonus Assessment Absent Vital Signs Blood Pressure Sitting Blood Pressure (90/60-120/80 mmHg) 160/85 H Blood Pressure Source Manual Cuff Comments Vital Signs Comments After 6MWT = 182/89 H Pt's baseline = 130s/80s PT-OP-J Posture/Palpation/Skin Start: 06/26/19 15:28 Freq: Status: Active Protocol: Document 06/26/19 15:20 HH (Rec: 06/26/19 16:48 [id number]) Posture Evaluation Position Standing Evaluation View Lateral Head/C-Spine Posture Forward Head T-Spine Posture Increased Kyphosis L-Spine Posture Increased Lordosis Shoulder Posture (L) Rounded,(R) Rounded Weight Distribution Weight Shifted Right Hip Posture (L) Externally Rotated,(R) Externally Rotated Knee Posture (L) Genu Valgus,(R) Genu Valgus,(L) Genu Recurvatum,(R) Genu Recurvatum Ankle/Foot Posture (L) Pronated,(R) Pronated PT-OP-K Range of Motion Start: 06/26/19 15:28 Freq: Status: Active Protocol: Document 06/26/19 15:20 HH (Rec: 06/26/19 16:48 [id number]) Cervical Spine Range of Motion Cervical Spine Active Testing Position Sitting Comments WNL Lumbar Spine Range of Motion Lumbar Spine Active Testing Position Standing Comments Flexion fingertips to midshin, extension full range but hinging L/S Hip Goniometric Range of Motion Hip ROM Limitations Comments Excess ER, IR limited. PT-OP-L Special Tests Start: 06/26/19 15:28 Freq: Status: Active Protocol: Document 06/26/19 15:20 HH (Rec: 06/26/19 16:48 HH [id number]) Special Tests Other Special Tests Special Tests Babinski -ve B 6 MWT: 742 ft, 1 break (1 min long), used 4WW PT-OP-M Strength Start: 06/26/19 15:28 Freq: Status: Active Protocol: Document 06/26/19 15:20 HH (Rec: 06/26/19 16:48 [id number]) Shoulder Strength Shoulder Manual Muscle Testing bilateral Abduction (C5) 4 Good Elbow/Forearm Strength Elbow and Forearm Manual Muscle Testing bilateral Flexion (C6) 4+ Good+ Extension (C7) 4+ Good+ Wrist Strength Wrist Manual Muscle Testing bilateral Flexion (C7) 4+ Good+ Extension (C6) 4+ Good+ Hip Strength Hip Manual Muscle Testing bilateral Flexion (L2) 4- Good- Knee Strength Knee Manual Muscle Testing bilateral Flexion (S2) 4 Good Extension (L3) 4 Good Ankle/Foot Strength Ankle and Foot Manual Muscle Testing bilateral Dorsiflexion (L4) 4 Good Plantarflexion (S1) 4 Good PT-OP-Q Treatments Start: 06/26/19 15:28 Freq: Status: Active Protocol: Document 09/25/19 13:05 HH (Rec: 09/25/19 14:33 HH [id number]) Therapeutic Exercises Supine Exercises knee cross over Supine Exercise Name piriformis stretch Side left Reps/Minutes 10 secs hold x3 supine HS stretch Supine Exercise Name with belt at ankle Side left Reps/Minutes 10 secs hold x5 Standing Exercises high knee walk Side bilateral Reps/Minutes 20 ft x 3 standing marching Standing Exercise Name in place Side bilateral PT-OP-S Aquatic Treatment Start: 06/26/19 15:28 Freq: Status: Active Protocol: Document 09/22/19 13:43 SAK (Rec: 09/22/19 13:53 SAK [id number]) Aquatics Treatment Pool Entry/Exit Pool Entry/Exit Method Stairs Assistance Standby Assistance Water Walking backward march Water Level Waist Level Level of Assistance Standby Assistance,Verbal Cues barrel walk Water Level Waist Level Level of Assistance Standby Assistance,Verbal Cues [place] October Water Level Waist Level Level of Assistance Standby Assistance,Verbal Cues Marching Water Level Waist Level Level of Assistance Standby Assistance,Verbal Cues Comments touching opposite knee Sideways Water Level Chest Level Level of Assistance Standby Assistance,Verbal Cues Comments with windshield wiper UE's Forwards Water Level Waist Level Level of Assistance Standby Assistance,Verbal Cues Lower Extremity Exercises knee flex/ext Reps/Duration 15x hip ab/ad Reps/Duration 15x hip flex/ext Reps/Duration 15x hip CCW/CW Body Position Standing Water Level Chest Level Reps/Duration 2x15 bilat both dir Comments no hh, fast and slow squats Reps/Duration 12x Lower Extremity Stretches gastroc, soleus Body Position Standing Reps/Duration 2x30 Comments standing at wall hip-spiderman Reps/Duration 2x45 SKTC, piriformis Body Position Standing Reps/Duration 2x30 Comments at wall HS, Quads, Body Position Standing Water Level Chest Level Equipment Small Noodle, large noodle Reps/Duration 2x30 Comments hh at wall Balance tandem gait Reps/Duration 30m SLS Reps/Duration 3x ea [place] Activities [place] Activities Bicycle,Bicycle Backwards, Cross Country,Running Equipment flotation belt (reversed) Duration 10 PT-OP-T Assessment and Plan Start: 06/26/19 15:28 Freq: Status: Active Protocol: Document 09/25/19 13:05 (Rec: 09/25/19 14:33 [id number]) Physical Therapy Assessment Goals walking program Impairment unable to participate daily walking program Long-Term Goal (LTG) Pt will be consistent to do walking 20 mins a day without AD to improve her endurance and mobility LTG Duration 11/21/19 gorcery shop Impairment Pt uses electric scooter for grocery shop Long-Term Goal (LTG) cont in progress 09/25: PT is able to stop by grocery shop for a short trip without AD Pt will be able to grocery shop without using any AD and electric scooter. LTG Duration 11/21/19 Balance Impairment Pt unable to balance single leg >5 sec Short Term Goal (STG) Pt will single leg stand >10 sec B to improve safety with activity STG Duration 6 weeks Wood Panel Inspector Goal (LTG) Goal met: SLS reaches 26-30 s bilaterally. Pt will single leg stand >20 sec B to improve safety with activity LTG Duration 11/21/19 Activity level Impairment Pt does not participate in regular physical activity Short Term Goal (STG) Pt will complete 20 min of physical activity daily to improve physical fitness STG Duration 6 weeks Wood Panel Inspector Goal (LTG) Pt will complete 30 min of physical activity dailty to improve physical fitness LTG Duration 11/21/19 6MWT Impairment Pt ambulated 742 ft with 1 min rest break Short Term Goal (STG) 09/25 cont in progress: 711 ft without AD Pt will ambulate >1000 ft with <30 sec rest break during 6MWT to improve activity tolerance STG Duration 6 weeks Long-Term Goal (LTG) Pt will ambulate >1500 ft with <30 sec rest break during 6MWT to improve activity tolerance or 1000 ft without AD LTG Duration 11/21/19 Assessment Summary Assessment Pt amb 711 ft without 4WW and took 2 30-45 secs breaks. Pt reports its her knee pain limited her primarily. SLS reach to 26-30 s bilaterally. Pt will cont benefit from skilled PT 2x/ week to improve her endurance and overall LE strength so she will be able to grocery shop/ community walking without AD. Physical Therapy Plan Next Visit Focus/Plan Next Note Type Treatment Note Next Visit Plan Continue land and aquatic based PT, encourage increased community-based ther ex (pool and fitness center)
--- NOTE | 2019-10-03 11:28 | PT-IP ANOTE ---
Called pt and left a voice message regarding pt's multiple cancellations and no shows. Told pt to call us back to discuss this issue.
--- NOTE | 2019-10-16 15:15 | PT.OTN ---
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 Pt also notes RA in hands/wrists in addition to CTS limit ability to doffer and requiring her to sleep with CTS splints at night. Pt was diagnosed with RA and rheumatoid vasculitis in 1993 and notes that she believes this is when she started to become deconditioned. Pt's LBP and L LE radiculopathy which was worse with minimal exertion started approximately 3 years ago. She had a partial diskectomy f/b a full diskectomy approximately 1.5 year ago with minimal relief from surgeries. Pt reports the LBP and L LE pain was so severe she stayed in nursing homes multiple times and has walked with 4WW for last 3 years. Pt notes that approximately 1 year ago her LE pain was so intense she stopped walking. Pt moved in with sister in bottom floor of the house for more socal support. Approximately 6 months ago started using CBD oil with profound relief of sx , and pt has been able to stop taking gabapentin and reduce 4WW use to only in the mornings or with long distances. As pt's LBP has improved, she is interested in improving physical fitness and reports deconditioning and poor balance limits her the most. She also reports a 70 lb weight gain ~1 year ago d/t a course of high dose steroids, and has been able to lose about 35 lbs but still feels like her weight is limiting her mobility. Pt reports biggest limitations are with long distance walking or climbing more than one flight of stairs. Prior Treatments and Tests Partial f/b full diskectomy L5 -S1 in 2018. Had aquatic therapy in [place], [place] a few years ago which she felt was beneficial. Pt also currently receiving OMT for RA . Treatment Goals Patient/Caregiver Goals Lose weight, improve fitness, walk more, stop using 4WW Prior Functional Status Baseline Function- ADL's Independent Baseline Function- Mobility Independent Baseline Function- Gait Did not use AD prior to 3 years ago. Current Functional Impairments (Reported) Functional Limitations- ADL's Independent with ADLs. Functional Limitations- Mobility/Gait Independent, uses walker in mornings or for extended distances. Personal Factors Other Personal Factors That May Effect Pt is 290lbs (had 70 lb weight Therapy/Recovery gain 1 year ago and has lost about 35 lb since then). 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 PT-OP-C Subjective Start: 06/26/19 15:28 Freq: Status: Active Protocol: Document 10/16/19 14:34 KS (Rec: 10/16/19 16:20 KS [email or web address]) OP-PT Subjective Patient Comments Patient Comments Pt arrived 4 min late to therapy. She reports that she has been trying to stand more, but has not been walking much . Offers that she has a doctors appt tomorrow. Patient Reported Progress Same PT-OP-D Balance Start: 06/26/19 15:28 Freq: Status: Active Protocol: Document 09/25/19 13:05 (Rec: 09/25/19 14:33 HH [id number]) Balance Tests Single Limb Standing Single Limb- Right 30s Single Limb- Left 26s PT-OP-E Functional Tests Start: 06/26/19 15:28 Freq: Status: Active Protocol: Document 09/25/19 13:05 (Rec: 09/25/19 14:33 HH [id number]) Functional Tests 6 Minute Walk Test Distance 711 Device Used none Comments 2 30-45s break taken PT-OP-G Mobility & Gait Start: 06/26/19 15:28 Freq: Status: Active Protocol: Document 06/26/19 15:20 HH (Rec: 06/26/19 16:48 [id number]) OP Mobility Evaluation Transfers Sit to Stand I but slow speed and uses UE support for pushoff. Poor descent control with stand to sit. PT-OP-H Neuro Start: 06/26/19 15:28 Freq: Status: Active Protocol: Document 06/26/19 15:20 HH (Rec: 06/26/19 16:48 [id number]) Sensation Evaluation Location Details Right Lower Extremity Light Touch Impaired Left Lower Extremity Light Touch Impaired Upper Extremity Light Touch Intact/Normal Left Little Finger Light Touch Absent Comments Summary Comments UE sensation to light touch intact except L pinky, pt reports long-term hx of neuropathic damage. LE sensation L impaired L4-S1, R impaired L5. Deep Tendon Reflex & Clonus Assessment Deep Tendon Reflex Bilateral Achilles Deep Tendon Reflex 1+ Diminished Bilateral Patellar Deep Tendon Reflex 2+ Normal Bilateral Brachioradialis Deep Tendon Reflex 2+ Normal Bilateral Tricep Deep Tendon Reflex 2+ Normal Bilateral Bicep Deep Tendon Reflex 2+ Normal Ankle Clonus Bilateral Clonus Assessment Absent Vital Signs Blood Pressure Sitting Blood Pressure (90/60-120/80 mmHg) 160/85 H Blood Pressure Source Manual Cuff Comments Vital Signs Comments After 6MWT = 182/89 H Pt's baseline = 130s/80s PT-OP-J Posture/Palpation/Skin Start: 06/26/19 15:28 Freq: Status: Active Protocol: Document 06/26/19 15:20 HH (Rec: 06/26/19 16:48 [id number]) Posture Evaluation Position Standing Evaluation View Lateral Head/C-Spine Posture Forward Head T-Spine Posture Increased Kyphosis L-Spine Posture Increased Lordosis Shoulder Posture (L) Rounded,(R) Rounded Weight Distribution Weight Shifted Right Hip Posture (L) Externally Rotated,(R) Externally Rotated Knee Posture (L) Genu Valgus,(R) Genu Valgus,(L) Genu Recurvatum,(R) Genu Recurvatum Ankle/Foot Posture (L) Pronated,(R) Pronated PT-OP-K Range of Motion Start: 06/26/19 15:28 Freq: Status: Active Protocol: Document 06/26/19 15:20 HH (Rec: 06/26/19 16:48 [id number]) Cervical Spine Range of Motion Cervical Spine Active Testing Position Sitting Comments WNL Lumbar Spine Range of Motion Lumbar Spine Active Testing Position Standing Comments Flexion fingertips to midshin, extension full range but hinging L/S Hip Goniometric Range of Motion Hip ROM Limitations Comments Excess ER, IR limited. PT-OP-L Special Tests Start: 06/26/19 15:28 Freq: Status: Active Protocol: Document 06/26/19 15:20 HH (Rec: 06/26/19 16:48 [id number]) Special Tests Other Special Tests Special Tests Babinski -ve B 6 MWT: 742 ft, 1 break (1 min long), used 4WW PT-OP-M Strength Start: 06/26/19 15:28 Freq: Status: Active Protocol: Document 06/26/19 15:20 HH (Rec: 06/26/19 16:48 [id number]) Shoulder Strength Shoulder Manual Muscle Testing bilateral Abduction (C5) 4 Good Elbow/Forearm Strength Elbow and Forearm Manual Muscle Testing bilateral Flexion (C6) 4+ Good+ Extension (C7) 4+ Good+ Wrist Strength Wrist Manual Muscle Testing bilateral Flexion (C7) 4+ Good+ Extension (C6) 4+ Good+ Hip Strength Hip Manual Muscle Testing bilateral Flexion (L2) 4- Good- Knee Strength Knee Manual Muscle Testing bilateral Flexion (S2) 4 Good Extension (L3) 4 Good Ankle/Foot Strength Ankle and Foot Manual Muscle Testing bilateral Dorsiflexion (L4) 4 Good Plantarflexion (S1) 4 Good PT-OP-Q Treatments Start: 06/26/19 15:28 Freq: Status: Active Protocol: Document 10/16/19 14:34 KS (Rec: 10/16/19 16:20 KS [email or web address]) Cardio Equipment Recumbent Stepper (Sci-Fit) Duration (Minutes) 5 Resistance 2.5 Treadmill Duration (Minutes) 3 Speed .9 Therapeutic Exercises Supine Exercises supine HS stretch Supine Exercise Name with belt at ankle Side bilateral Reps/Minutes 2x30 sec hold Standing Exercises Step ups Standing Exercise Name step ups Equipment Used 4 inch step Reps/Minutes 1x10 Comments forward and lateral calf raises Standing Exercise Name Calf raises Equipment Used // bars Reps/Minutes 2x10 Mini squats Standing Exercise Name Mini squats Equipment Used // bars Comments 2x10 side step Standing Exercise Name side steps Side bilateral Equipment Used // bars Reps/Minutes 3 laps standing marching Standing Exercise Name in place Side bilateral PT-OP-S Aquatic Treatment Start: 06/26/19 15:28 Freq: Status: Active Protocol: Document 09/22/19 13:43 SAK (Rec: 09/22/19 13:53 SAK [id number]) Aquatics Treatment Pool Entry/Exit Pool Entry/Exit Method Stairs Assistance Standby Assistance Water Walking backward march Water Level Waist Level Level of Assistance Standby Assistance,Verbal Cues barrel walk Water Level Waist Level Level of Assistance Standby Assistance,Verbal Cues [place] March Water Level Waist Level Level of Assistance Standby Assistance,Verbal Cues Marching Water Level Waist Level Level of Assistance Standby Assistance,Verbal Cues Comments touching opposite knee Sideways Water Level Chest Level Level of Assistance Standby Assistance,Verbal Cues Comments with windshield wiper UE's Forwards Water Level Waist Level Level of Assistance Standby Assistance,Verbal Cues Lower Extremity Exercises knee flex/ext Reps/Duration 15x hip ab/ad Reps/Duration 15x hip flex/ext Reps/Duration 15x hip CCW/CW Body Position Standing Water Level Chest Level Reps/Duration 2x15 bilat both dir Comments no hh, fast and slow squats Reps/Duration 12x Lower Extremity Stretches gastroc, soleus Body Position Standing Reps/Duration 2x30 Comments standing at wall hip-spiderman Reps/Duration 2x45 SKTC, piriformis Body Position Standing Reps/Duration 2x30 Comments at wall HS, Quads, Body Position Standing Water Level Chest Level Equipment Small Noodle, large noodle Reps/Duration 2x30 Comments hh at wall Balance tandem gait Reps/Duration 30m SLS Reps/Duration 3x ea [place] Activities [place] Activities Bicycle,Bicycle Backwards, Cross Country,Running Equipment flotation belt (reversed) Duration 10 PT-OP-T Assessment and Plan Start: 06/26/19 15:28 Freq: Status: Active Protocol: Document 10/16/19 14:34 KS (Rec: 10/16/19 16:20 KS [email or web address]) Physical Therapy Assessment Rehab Potential Rehabilitation Potential Good Evaluation Complexity Number of Personal Factors/Comorbidities 3 or More Number of Body Systems Impaired 4 or More Clinical Presentation at Evaluation Stable Impairments Impairments Activity Tolerance,Balance, Functional Activities, Functional Mobility,Gait,Pain, Posture,ROM,Sensation,Strength Other Impairments Gross mobility deficits and deconditioning Goals walking program Impairment unable to participate daily walking program Shelter Goal (LTG) Pt will be consistent to do walking 20 mins a day without AD to improve her endurance and mobility LTG Duration 11/21/19 gorcery shop Impairment Pt uses electric scooter for grocery shop Shelter Goal (LTG) cont in progress 09/25: PT is able to stop by grocery shop for a short trip without AD Pt will be able to grocery shop without using any AD and electric scooter. LTG Duration 11/21/19 Balance Impairment Pt unable to balance single leg >5 sec Short Term Goal (STG) Pt will single leg stand >10 sec B to improve safety with activity STG Duration 6 weeks Shelter Goal (LTG) Goal met: SLS reaches 26-30 s bilaterally. Pt will single leg stand >20 sec B to improve safety with activity LTG Duration 11/21/19 Activity level Impairment Pt does not participate in regular physical activity Short Term Goal (STG) Pt will complete 20 min of physical activity daily to improve physical fitness STG Duration 6 weeks Shelter Goal (LTG) Pt will complete 30 min of physical activity dailty to improve physical fitness LTG Duration 11/21/19 6MWT Impairment Pt ambulated 742 ft with 1 min rest break Short Term Goal (STG) 09/25 cont in progress: 711 ft without AD Pt will ambulate >1000 ft with <30 sec rest break during 6MWT to improve activity tolerance STG Duration 6 weeks [employer] Goal (LTG) Pt will ambulate >1500 ft with <30 sec rest break during 6MWT to improve activity tolerance or 1000 ft without AD LTG Duration 11/21/19 HEP Impairment Printed stretches for HEP [employer] Goal (LTG) Pt will demonstrate independence and safety with HEP to improve and maintain balance and physical fitness LTG Duration 11/21/19 Assessment Summary Assessment Pt was able to complete LE strengthening exercises, but required multiple seated rest breaks d/t low tolerance for activity. Pt reports that she has been trying to stand more often lately, but has not progressed to walking more. Pt also states that her anxiety is a large contributing factor to her lack of attendance to PT appts. She denied any increase in pain throughout treatment. Printed hamstring, quad, calf, and piriformis stretches for pt to complete at home. Pt will benefit from continued strengthening exercises to improve tolerance for activity and functional mobility. Physical Therapy Plan Frequency and Duration Frequency of Treatment 2x/Week Duration of Treatment 12 weeks Therapeutic Interventions Therapeutic Interventions Aquatic Therapy,Balance Training,Gait Training,Home Exercise Program,Manual Therapy,Neuromuscular Re- education,Patient/Caregiver Education,Self-Care/Home Management,Soft Tissue Mobilization,Therapeutic Activities,Therapeutic Exercises Modalities Cold Pack/Ice Massage,Electric Stimulation,Hot Packs, Ultrasound Next Visit Focus/Plan Next Note Type Treatment Note Next Visit Plan Continue land and aquatic based PT, encourage increased community-based ther ex (pool and fitness center)
--- NOTE | 2019-10-22 14:35 | PT.OTN ---
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 (10/22/19) Other malaise (10/22/19) Physical Therapy Treatment Note PT-OP-A Visit Information Start: 06/26/19 15:28 Freq: Status: Active Protocol: Document 10/22/19 13:50 HH (Rec: 10/22/19 14:34 HH [id number]) Out-Patient Physical Therapy Visit Information Visit Information Visit Type Treatment Note Visit Start Time 13:50 Visit Stop Time 14:30 Total Visit Minutes 40 Visit Number Number of DUDE WRANGLER Visits 1 PT-OP-B Current Condition Start: 06/26/19 15:28 Freq: Status: Active Protocol: Document 06/26/19 15:20 HH (Rec: 06/26/19 16:48 HH [id number]) Current Condition History of Current Condition Onset Date Deconditioning 20 yrs, LBP/ radiculopathy 3 years Current Complaints Deconditioning, LBP, occasional L LE radiculopathy History of Current Condition Pt is 43 yo female presenting to clinic with complaints of deconditioning and hx of LBP with radiculopathy. Pt also notes RA in hands/wrists in addition to CTS limit ability to vp compliance and requiring her to sleep with CTS splints at night. Pt was diagnosed with RA and rheumatoid vasculitis in 1993 and notes that she believes this is when she started to become deconditioned. Pt's LBP and L LE radiculopathy which was worse with minimal exertion started approximately 3 years ago. She had a partial diskectomy f/b a full diskectomy approximately 1.5 year ago with minimal relief from surgeries. Pt reports the LBP and L LE pain was so severe she stayed in nursing homes multiple times and has walked with 4WW for last 3 years. Pt notes that approximately 1 year ago her LE pain was so intense she stopped walking. Pt moved in with sister in bottom floor of the house for more socal support. Approximately 6 months ago started using CBD oil with profound relief of sx , and pt has been able to stop taking gabapentin and reduce 4WW use to only in the mornings or with long distances. As pt's LBP has improved, she is interested in improving physical fitness and reports deconditioning and poor balance limits her the most. She also reports a 70 lb weight gain ~1 year ago d/t a course of high dose steroids, and has been able to lose about 35 lbs but still feels like her weight is limiting her mobility. Pt reports biggest limitations are with long distance walking or climbing more than one flight of stairs. Prior Treatments and Tests Partial f/b full diskectomy L5 -S1 in 2018. Had aquatic therapy in [place], [place] a few years ago which she felt was beneficial. Pt also currently receiving OMT for RA . Treatment Goals Patient/Caregiver Goals Lose weight, improve fitness, walk more, stop using 4WW Prior Functional Status Baseline Function- ADL's Independent Baseline Function- Mobility Independent Baseline Function- Gait Did not use AD prior to 3 years ago. Current Functional Impairments (Reported) Functional Limitations- ADL's Independent with ADLs. Functional Limitations- Mobility/Gait Independent, uses walker in mornings or for extended distances. Personal Factors Other Personal Factors That May Effect Pt is 290lbs (had 70 lb weight Therapy/Recovery gain 1 year ago and has lost about 35 lb since then). 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 PT-OP-C Subjective Start: 06/26/19 15:28 Freq: Status: Active Protocol: Document 10/22/19 13:50 HH (Rec: 10/22/19 14:34 HH [id number]) OP-PT Subjective Patient Comments Patient Comments Cecily been doing pretty good but i do have trouble with depression and made me dont want to leave the house. And i was surprised to walk a good amount today which i havent been able to for awhile. I havent used the walker since begining of August. PT-OP-D Balance Start: 06/26/19 15:28 Freq: Status: Active Protocol: Document 09/25/19 13:05 HH (Rec: 09/25/19 14:33 HH [id number]) Balance Tests Single Limb Standing Single Limb- Right 30s Single Limb- Left 26s PT-OP-E Functional Tests Start: 06/26/19 15:28 Freq: Status: Active Protocol: Document 10/22/19 13:50 HH (Rec: 10/22/19 14:35 HH [id number]) Functional Tests 6 Minute Walk Test Distance 901ft Device Used none Comments 2 rest breaks PT-OP-G Mobility & Gait Start: 06/26/19 15:28 Freq: Status: Active Protocol: Document 06/26/19 15:20 HH (Rec: 06/26/19 16:48 [id number]) OP Mobility Evaluation Transfers Sit to Stand I but slow speed and uses UE support for pushoff. Poor descent control with stand to sit. PT-OP-H Neuro Start: 06/26/19 15:28 Freq: Status: Active Protocol: Document 06/26/19 15:20 HH (Rec: 06/26/19 16:48 [id number]) Sensation Evaluation Location Details Right Lower Extremity Light Touch Impaired Left Lower Extremity Light Touch Impaired Upper Extremity Light Touch Intact/Normal Left Little Finger Light Touch Absent Comments Summary Comments UE sensation to light touch intact except L pinky, pt reports long-term hx of neuropathic damage. LE sensation L impaired L4-S1, R impaired L5. Deep Tendon Reflex & Clonus Assessment Deep Tendon Reflex Bilateral Achilles Deep Tendon Reflex 1+ Diminished Bilateral Patellar Deep Tendon Reflex 2+ Normal Bilateral Brachioradialis Deep Tendon Reflex 2+ Normal Bilateral Tricep Deep Tendon Reflex 2+ Normal Bilateral Bicep Deep Tendon Reflex 2+ Normal Ankle Clonus Bilateral Clonus Assessment Absent Vital Signs Blood Pressure Sitting Blood Pressure (90/60-120/80 mmHg) 160/85 H Blood Pressure Source Manual Cuff Comments Vital Signs Comments After 6MWT = 182/89 H Pt's baseline = 130s/80s PT-OP-J Posture/Palpation/Skin Start: 06/26/19 15:28 Freq: Status: Active Protocol: Document 06/26/19 15:20 HH (Rec: 06/26/19 16:48 [id number]) Posture Evaluation Position Standing Evaluation View Lateral Head/C-Spine Posture Forward Head T-Spine Posture Increased Kyphosis L-Spine Posture Increased Lordosis Shoulder Posture (L) Rounded,(R) Rounded Weight Distribution Weight Shifted Right Hip Posture (L) Externally Rotated,(R) Externally Rotated Knee Posture (L) Genu Valgus,(R) Genu Valgus,(L) Genu Recurvatum,(R) Genu Recurvatum Ankle/Foot Posture (L) Pronated,(R) Pronated PT-OP-K Range of Motion Start: 06/26/19 15:28 Freq: Status: Active Protocol: Document 06/26/19 15:20 HH (Rec: 06/26/19 16:48 [id number]) Cervical Spine Range of Motion Cervical Spine Active Testing Position Sitting Comments WNL Lumbar Spine Range of Motion Lumbar Spine Active Testing Position Standing Comments Flexion fingertips to midshin, extension full range but hinging L/S Hip Goniometric Range of Motion Hip ROM Limitations Comments Excess ER, IR limited. PT-OP-L Special Tests Start: 06/26/19 15:28 Freq: Status: Active Protocol: Document 06/26/19 15:20 HH (Rec: 06/26/19 16:48 [id number]) Special Tests Other Special Tests Special Tests Babinski -ve B 6 MWT: 742 ft, 1 break (1 min long), used 4WW PT-OP-M Strength Start: 06/26/19 15:28 Freq: Status: Active Protocol: Document 06/26/19 15:20 HH (Rec: 06/26/19 16:48 [id number]) Shoulder Strength Shoulder Manual Muscle Testing bilateral Abduction (C5) 4 Good Elbow/Forearm Strength Elbow and Forearm Manual Muscle Testing bilateral Flexion (C6) 4+ Good+ Extension (C7) 4+ Good+ Wrist Strength Wrist Manual Muscle Testing bilateral Flexion (C7) 4+ Good+ Extension (C6) 4+ Good+ Hip Strength Hip Manual Muscle Testing bilateral Flexion (L2) 4- Good- Knee Strength Knee Manual Muscle Testing bilateral Flexion (S2) 4 Good Extension (L3) 4 Good Ankle/Foot Strength Ankle and Foot Manual Muscle Testing bilateral Dorsiflexion (L4) 4 Good Plantarflexion (S1) 4 Good PT-OP-Q Treatments Start: 06/26/19 15:28 Freq: Status: Active Protocol: Document 10/22/19 13:50 HH (Rec: 10/22/19 14:34 [id number]) Cardio Equipment Recumbent Stepper (Sci-Fit) Duration (Minutes) 8 Resistance 2.5 Therapeutic Exercises Standing Exercises high knee walk Standing Exercise Name 5 sec hold x 10 ft x 4 Side bilateral Equipment Used next to grab bar Gait Training Gait Activity 6MWT Description with tennis shoes today. Device Used no AD Distance/Duration 901 ft Comments without AD, 2 rest breaks antalgic gait noted towards last 200 ft due to LLE weakness. Self-Care/Home Management Treatment Education Patient Education Home Exercise Program Other Education education on increasing daily physical activity >20 mins to promote overall physical health PT-OP-S Aquatic Treatment Start: 06/26/19 15:28 Freq: Status: Active Protocol: Document 09/22/19 13:43 SAK (Rec: 09/22/19 13:53 SAK [id number]) Aquatics Treatment Pool Entry/Exit Pool Entry/Exit Method Stairs Assistance Standby Assistance Water Walking backward march Water Level Waist Level Level of Assistance Standby Assistance,Verbal Cues barrel walk Water Level Waist Level Level of Assistance Standby Assistance,Verbal Cues Bruce March Water Level Waist Level Level of Assistance Standby Assistance,Verbal Cues Marching Water Level Waist Level Level of Assistance Standby Assistance,Verbal Cues Comments touching opposite knee Sideways Water Level Chest Level Level of Assistance Standby Assistance,Verbal Cues Comments with windshield wiper UE's Forwards Water Level Waist Level Level of Assistance Standby Assistance,Verbal Cues Lower Extremity Exercises knee flex/ext Reps/Duration 15x hip ab/ad Reps/Duration 15x hip flex/ext Reps/Duration 15x hip CCW/CW Body Position Standing Water Level Chest Level Reps/Duration 2x15 bilat both dir Comments no hh, fast and slow squats Reps/Duration 12x Lower Extremity Stretches gastroc, soleus Body Position Standing Reps/Duration 2x30 Comments standing at wall hip-spiderman Reps/Duration 2x45 SKTC, piriformis Body Position Standing Reps/Duration 2x30 Comments at wall HS, Quads, Body Position Standing Water Level Chest Level Equipment Small Noodle, large noodle Reps/Duration 2x30 Comments hh at wall Balance tandem gait Reps/Duration 30m SLS Reps/Duration 3x ea Maxwell Activities Maxwell Activities Bicycle,Bicycle Backwards, Cross Country,Running Equipment flotation belt (reversed) Duration 10 PT-OP-T Assessment and Plan Start: 06/26/19 15:28 Freq: Status: Active Protocol: Document 10/22/19 13:50 HH (Rec: 10/22/19 14:34 HH [id number]) Physical Therapy Assessment Goals walking program Impairment unable to participate daily walking program Emissions Repair Technician Goal (LTG) Pt will be consistent to do walking 20 mins a day without AD to improve her endurance and mobility LTG Duration 11/21/19 gorcery shop Impairment Pt uses electric scooter for grocery shop Emissions Repair Technician Goal (LTG) cont in progress 09/25: PT is able to stop by grocery shop for a short trip without AD Pt will be able to grocery shop without using any AD and electric scooter. LTG Duration 11/21/19 Balance Impairment Pt unable to balance single leg >5 sec Short Term Goal (STG) Pt will single leg stand >10 sec B to improve safety with activity STG Duration 6 weeks Emissions Repair Technician Goal (LTG) Goal met: SLS reaches 26-30 s bilaterally. Pt will single leg stand >20 sec B to improve safety with activity LTG Duration 11/21/19 Activity level Impairment Pt does not participate in regular physical activity Short Term Goal (STG) Pt will complete 20 min of physical activity daily to improve physical fitness STG Duration 6 weeks Senior Living Goal (LTG) Pt will complete 30 min of physical activity dailty to improve physical fitness LTG Duration 11/21/19 6MWT Impairment Pt ambulated 742 ft with 1 min rest break Short Term Goal (STG) 10/22 cont in progress: 901 ft without AD, with 2 rest breaks Pt will ambulate >1000 ft with <30 sec rest break during 6MWT to improve activity tolerance STG Duration 6 weeks Emissions Repair Technician Goal (LTG) Pt will ambulate >1500 ft with <30 sec rest break during 6MWT to improve activity tolerance or 1000 ft without AD LTG Duration 11/21/19 HEP Impairment Printed stretches for HEP Senior Living Goal (LTG) Pt will demonstrate independence and safety with HEP to improve and maintain balance and physical fitness LTG Duration 11/21/19 Assessment Summary Assessment Pt shows improved amb distance up to 901 ft without AD today . But she cont to have difficulty keeping her physical activity. Spend most of the session time on pt education to encourage achieving PA >20 mins a day. Will cont POC 1x /week x 4 weeks Physical Therapy Plan Next Visit Focus/Plan Next Note Type Treatment Note Next Visit Plan Continue land and aquatic based PT, encourage increased community-based ther ex (pool and fitness center)
--- NOTE | 2019-11-10 12:44 | PT-OP ANOTE ---
cancelled due to health concerns
--- NOTE | 2020-05-18 11:02 | PT.OPDS ---
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 (10/22/19) Other malaise (10/22/19) Visit Care Team Role Provider Type Carlos Eduardo Lindsay DO Primary Care Provider Physician Specialty: Family Practice Address: [address] [place] [address], [id number] Email: Other Providers Specialty: Address: Phone: Fax: Email: Daisy Weinberg DO Attending Provider Non-Staff Specialty: Medical Address: [address] [place] [address], [id number] Email: Visit Number Visit Number Discharge Summary PT-OP-T Assessment and Plan Start: 06/26/19 15:28 Freq: Status: Active Protocol: Document 05/18/20 11:02 (Rec: 05/18/20 11:02 [id number]) Physical Therapy Plan Discharge Physical Therapy Discharge Reasons No Longer Attending PT Discharge Comments Patient cancelled last appointments in October, no shows. No longer attending PT. DC from PT today
== END 2020-06-17 08:17 ==
LOC: PHYS 13:45
PROVIDERS: PCP Family Medicine; Visit Provider Family Medicine
DX: R53.81 Other malaise (principal); M05.79 Rheumatoid arthritis with rheumatoid factor of multiple sites without organ or systems involvement
CPT/HCPCS: 97110; 97112; 97113; 97116; 97140; 97162; 97535

== ENCOUNTER → 2020-04-26 13:12 | Outpatient (CLI) | payer OTHER, MEDICAID, SELFPAY | PROVIDERS: PCP Family Medicine; Referring Provider Family Medicine; Visit Provider Family Medicine | DX: E11.621 Type 2 diabetes mellitus with foot ulcer (principal); L97.511 Non-pressure chronic ulcer of other part of right foot limited to breakdown of skin; E11.43 Type 2 diabetes mellitus with diabetic autonomic (poly)neuropathy; M06.9 Rheumatoid arthritis, unspecified; Z79.4 Long term (current) use of insulin | CPT/HCPCS: 11042; 99203; 99213 ==